=== PATIENT | female | born 2000 | race Caucasian/White ===

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

== ENCOUNTER 2024-02-24 07:14 | Day surgery (SDC) | payer BC, SELFPAY ==
--- NOTE | 2024-02-15 12:43 | HP.PCM_ITS ---
History and Physical Date of Admission: 02/24/24 HPI: The patient is a 23 year old female presenting for pre-operative visit. She is scheduled for Hysteroscopy D&C, possible polypectomy for aub and endometrial polyp on 02/24/24. Procedure discussed along with risks, benefits and complications. Other alternatives discussed for management. Consent form signed? Yes. PAST MEDICAL HISTORY PAST MEDICAL HISTORY Diagnosis Date ? Acid reflux ? Depression ? Dislocation of the knee cap bilat- most recent left 02/2024 ? History of elbow surgery 05/03/2011 ? Mood disorder (HCC) ? Patellar instability PAST SURGICAL HISTORY PAST SURGICAL HISTORY Procedure Laterality Date ? ELBOW SURGERY HX 7th grade right elbow ? [facility] CHOLECYSTECTOMY 2021 ? NASAL ENDOS,DIAG,UNI/ BILATERAL ? TONSILLECTOMY & ADENOIDECTOMY <AGE 11 CURRENT MEDICATIONS Current Outpatient Medications Medication Sig Dispense Refill ? AIMOVIG AUTOINJECTOR 140 mg/mL auto-injector ? citalopram hydrobromide (CELEXA) 10 mg tablet Take 10 mg by mouth every morning. ? clonazePAM (KLONOPIN) 0.5 mg tablet TAKE 1 TAB BY MOUTH ONCE A DAY NEEDED FOR PANIC ATTACKS ? norethindrone (AYGESTIN) 5 mg tablet Take 1 tablet TID until bleeding stops, the BID x 3 days, the daily x 3 days. 35 tablet 0 ? lamoTRIgine (LAMICTAL) 100 mg tablet Take 2 tablets by mouth once daily. 90 tablet 0 ? esomeprazole magnesium (NEXIUM ORAL) Take 20 mg by mouth once daily. No current facility-administered medications for this visit. ALLERGIES: Adhesive Tape-Silicones, Benadryl [Diphenhydramine], Lactose, and Mobic [Meloxicam] PERSONAL HISTORY: SOCIAL HISTORY Social History Tobacco Use ? Smoking status: Never ? Smokeless tobacco: Never Vaping Use ? Vaping status: Never Used Substance Use Topics ? Alcohol use: No ? Drug use: No FAMILY HISTORY: FAMILY HISTORY FAMILY HISTORY Problem Relation Age of Onset ? Hypertension Mother ? Colon Cancer Father ? Hypertension Maternal Grandmother ? Heart Maternal Grandmother ? Hypertension Maternal Grandfather ? Heart Maternal Grandfather REVIEW OF SYMPTOMS: GENERAL: denies fevers or chills ENDOCRINOLOGY: has not been on steroids Cardiology : denies palpitations or chest pain Respiratory: denies SOB or cough Hematology: denies history of prolonged bleeding or easy bruising or VTE Allergy: Denies history of personal or family history of allergy to anesthesia PHYSICAL EXAMINATION: VITALS: Blood pressure 124/86, pulse 81, resp. rate 16, height 167.6 cm (5' 6 ), weight 122.5 kg (270 lb), last menstrual period 12/27/2023, SpO2 99%. GENERAL: The patient is well nourished, well hydrated in no acute distress. , The patient is oriented to time, place, and person. NECK: Supple. No lynphadenopathy, normal thyroid, no thyromegaly. LUNGS: Clear to auscultation bilaterally. no wheezes, rhonchi or rales HEART: Regular rate and rhythm, Normal heart sounds, and No murmurs or gallops Reviewed pelvic US nad labs IMPRESSION: iron def anemia of chronic blood loss, AUB, endometrial polyp, bicornuate uterus PLAN: The risks/benefits/alternatives and personal involved for the planned hysteroscopy D&C w/ possible polyp resection were reviewed with the patient. Her questions were answered to her satisfaction and she desires to proceed. Co nsent was signed. I reviewed with her postop instructions and expectations. I have reviewed and updated past medical and surgical history, medications and allergies Assessment & Plan Assessment/Plan (1) Abnormal uterine bleeding (AUB): (2) Endometrial polyp: (3) Iron deficiency anemia due to chronic blood loss: (4) Bicornate uterus:
[2024-02-24] VITALS (11 sets, daily range): BP systolic 118–147; BP diastolic 77–108; PULSE 69–99; RESP 14–20; TEMP 36.1–36.6; O2SAT 92–100; BMI 43.4
--- NOTE | 2024-02-24 07:36 | PRE.ANES_ITS ---
ASA Classification* ASA Classification ASA Classification: 2 Assessment & Plan Anesthesia* Anesthesia Assessment Anesthesia Assessment: Discussed sedation and/or anesthesia options, risks, benefits, and alternatives with patient/parents/legal guardian/POA. Questions invited. The patient/parents/legal guardian/POA seems to understand and agrees to proceed with anesthesia plan. Reviewed the physical assessment, medical history, allergy history and patient home medications list prior to surgery/procedure/anesthetic and documented any changes. Performed airway and anesthesia risk assessments. 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 When Was Last Pacemaker Check QUESTION #4 FULL TEXT: You/Your Family Experience fever (hyperthermia) with Anesthesia Last Oral Intake Last Oral intake: Last Oral Intake NPO since Meds taken in AM with sips of water? Meds patient instructed to take am of surgery PONV PONV - telecommunications switch technician: PONV - telecommunications switch technician Female Yes 02/17/24 11:14 HX of Motion Sickness Yes 02/17/24 11:14 HX of N/V After Surgery No 02/17/24 11:14 Non-Smoker Yes 02/17/24 11:14 Duration of Surgery greater No 02/17/24 11:14 than 60 minutes Number of Risk Factors 3 02/17/24 11:14 PONV Score Moderate Risk 02/17/24 11:14 Respiratory Assessment Respiratory Assessment - telecommunications switch technician: Respiratory Tract Infection Hx - telecommunications switch technician Hx Respiratory Tract Infection No 02/17/24 11:14 STOP Sleep Apnea STOP Sleep Apnea - telecommunications switch technician: STOP Sleep Apnea - telecommunications switch technician Hx Hypertension No 02/17/24 11:14 Hx Sleep Apnea No 02/17/24 11:14 CPAP BIPAP Do you snore loudly (louder No 02/17/24 11:14 than talking or can be heard Do you often feel tired/ Yes 02/17/24 11:14 fatigued/ sleepy during daytime? Has anyone observed you stop No 02/17/24 11:14 breathing during sleep? STOP Results Negative 02/17/24 11:14 QUESTION #5 FULL TEXT : Do you snore loudly (louder than talking or can be heard through closed doors)? 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 Specify any problems Hx of Preganancy in last 3 No 02/17/24 11:14 Months Nurse Filling Out Transfusion DSCHRIBER 02/17/24 11:14 & Questions: Date: 02/17/24 02/17/24 11:14 Time: 11:16 02/17/24 11:14 Patient unable to answer at this time (ie. confused, unrespo /Reproduction History /Reproductive History - telecommunications switch technician: /Reproductive Hx- telecommunications switch technician Hx Now No 02/17/24 11:14 Gestational Age (in weeks): EDC: Hx Hx Para Hx Section SAB No 02/17/24 11:14 Active Medications Active Medications: Current Medications Generic Name Dose Route Start Last Admin Trade Name Freq PRN Reason Stop Dose Admin Acetaminophen 1,000 mg 02/24/24 08:30 Acetaminophen 500 Mg Tablet PO 02/24/24 08:31 PREOP [facility] Medical History Wears contact lenses Anxiety Low iron Easy bruising Migraine headache Gastric reflux Non-smoker History of edema Home Medications ?Medication ?Instructions ?Recorded ?Last Taken ?Type citalopram 10 mg tablet (Celexa) 10 mg PO DAILY 02/17/24 Unknown History esomeprazole magnesium 40 mg 40 mg PO DAILY 02/17/24 Unknown History capsule,delayed release (Nexium) lamotrigine 100 mg tablet 200 mg PO QHS 02/17/24 Unknown History Allergy/AdvReac Type Severity Reaction Status Date / Time meloxicam (From [employer]) Allergy Intermediate Rash Verified 02/17/24 11:14 Surgical History Hx laparoscopic cholecystectomy Hx of elbow surgery Hx of nasal septoplasty Hx of tonsillectomy Social History Smoking Status: Never smoker Review of Systems (Anesthesia) ROS Narrative System reviewed and no additional complaints, except as documented.
--- OUTSIDE RECORDS SUMMARY | 2024-02-24 07:37 | XMS RPT_ITS | CCD ---
Author Organization [facility] Care Team Providers Care Photographer Portrait Name Role Phone ISAAC IGLESIA F Primary Care Unavailable ROSALBA MITTAL Attending Unavailable IGNACIO, CASSIDY M Referring Unavailable IGNACIO, CASSIDY M Primary Care Unavailable IGNACIO, CASSIDY M Referring Unavailable IGNACIO, CASSIDY M Primary Care Unavailable IGNACIO, CASSIDY M Referring Unavailable IGNACIO, CASSIDY M Primary Care Unavailable IGNACIO, CASSIDY M Referring Unavailable IGNACIO, CASSIDY M Primary Care Unavailable IGNACIO, CASSIDY M Referring Unavailable IGNACIO, CASSIDY M Primary Care Unavailable Calluma Iglesia F Primary Care Provider Petrilla DO, Iglesia F Primary Care Provider Petrilla DO, Iglesia F Primary Care Provider Petrirolya, Iglesia F Primary Care Provider Petrilla, Iglesia F Primary Care Provider Petrilla, Iglesia F Primary Care Provider Petrilla, Iglesia F Primary Care Provider Petrilla DO, Iglesia F Primary Care Provider Petrilla DO, Iglesia F Primary Care Provider Petrirolya DO, Iglesia F Primary Care Provider Bay Blanton MD Unavailable CALLUMA, IGLESIA F Primary Care Unavailable DEVON OMALLEY~[phone], DEVON Andrade Admittin g Unavailable DEVON OMALLEY~[id number], DEVON Andrade Attendin g Unavailable CALLUMA, IGLESIA F Primary Care Unavailable DEVON OMALLEY~[id number], DEVON Andrade Admittin g Unavailable DEVON OMALLEY~[id number], DEVON Andrade Attendin g Unavailable PETRILLA, IGLESIA F Referring Unavailable PETRILLA, [facility] Primary Care Unavailable PETRILLA, IGLESIA F Referring Unavailable PETRILLA, [facility] Primary Care Unavailable Petrilla DO, [facility] [place], [place] Primary Care Provider [phone] Bay Blanton MD Unavailable CALLUMA, IGLESIA Primary Care Unavailable PROVIDER, UNKNOWN Referring Unavailable PETRILLA, [facility] Primary Care Unavailable KVNG STOCKTON Attending Unavailable Petrilla DO, [facility] Primary Care Provide r ISABELLE BRICENO Attending Unavailable BRICENO, ISABELLE Referring Unavailable PETRILLA, R[place] Primary Care Unavailable BRICENO, ISABELLE Attending Unavailable PETRILLA, [place] Primary Care Unavailable PETRILLA, IGLESIA Attending Unavailable PETRILLA, [place] Primary Care Unavailable PETRILLA, [place] Primary Care Unavailable KAITY, ISABELLE Referring Unavailable BRICENO, ISABELLE Attending Unavailable BRICENO, ISABELLE Attending Unavailable BRICENO, ISABELLE Referring Unavailable PETRILLA, [place] Primary Care Unavailable KATRIN DIOP Admitting Unavailable KODAKANDLA, NARSIMHA Consulting Unavailable GSCHENCHO ESPINOSA Attending Unavailable PETRILLA, [place] Primary Care Unavailable PETRILLA, [place] Primary Care Unavailable NEPTALI SMITH Attending Unavailable PETRILLA, [place] Primary Care Unavailable BRICENO, ISABELLE Attending Unavailable NORA, RADHA Attending [facility] Primary Care Unavail able NAN FONSECA Attending Unavailable PETRIA, [facility] Primary Care Unavail able NORA, RADHA Referring Unavailable PETRILLA, [facility] Primary Care Unavail able NORA, RADHA Attending Unavailable NORA, RADHA Referring Unavailable PETRILLA, [facility] Primary Care Unavail able NORA, RADHA Referring Unavailable PETRILLA, [facility] Primary Care Unavail able Allergies Allergy Classification Reported Allergen(s) Allergy Type Date of Onset Reaction(s) Facility (20 sources) Lactose; Translations: [LACTOSE] Drug Allergy 5 Diarrhea [facility] (15 sources) Adhesive Tape Drug Intolerance 2 [facility] (15 sources) Lactose (non-medical use) Allergy to substance 5 Diarrhea [facility] (9 sources) Milk-Related Compounds Drug Intolerance 2 [facility] (9 sources) meloxicam; Translations: [MELOXICAM] Drug Allergy 4 Rash [facility] (1 source) Lactose Drug Allergy [facility] (1 source) meloxicam Drug Allergy [facility] (11 sources) diphenhydrAMINE ; Translations: [DIPHENHYDRAMIN E] Drug Allergy 4 Other: See Comments [facility] Other [facility] (8 sources) meloxicam Drug Allergy 4 Anaphylaxis [facility] (1 source) Adhesive Tape-Silicones Drug Intolerance 2 Hives [facility] Medications Current Medications Medication Drug Class(es) Dates Sig (Normalized) Sig (Original) citalopram 10 mg oral tablet (4 sources) Serotonin Reuptake Inhibitor Start: 12-16-2023 take 1 tablet by mouth once daily in the morning citalopram hydrobromide (CELEXA) 10 mg tablet Take 10 mg by mouth every morning. 12/16/2023 Active Start: 04-27-2019 End: 11-13-2019 take 1 tablet by mouth once daily in the evening citalopram (CELEXA) 10 MG tablet Take 1 tablet by mouth every evening 30 tablet 1 04/27/2019 11/13/2019 Discontinued clonazePAM 0.5 mg oral tablet (9 sources) Benzodiazepine Start: 07-02-2023 End: 08-12-2024 take 1 tablet by mouth twice daily as needed for anxiety clonazePAM (KlonoPIN) 0.5 MG tablet Indications: Anxiety Take 1 tablet (0.5 mg) by mouth 2 times daily as needed for anxiety. 60 tablet 07/02/2023 08/12/2024 Active take 1 tablet by brittanie th once daily as needed clonazePAM (KLONOPIN) 0.5 mg tablet TAKE 1 TAB BY MOUTH ONCE A DAY NEEDED FOR PANIC ATTACKS Active drospirenone, contraceptive, (SLYND) 4 mg (28) tabet (1 source) Start: 02-15-2024 take 1 tablet by mouth once daily drospirenone, contraceptive, (SLYND) 4 mg (28) tabet Take 1 tablet by mouth once daily. 28 tablet 12 02/15/2024 Active 1 ml erenumab-aooe 140 mg/ml auto-injector (3 sources) Start: 01-04-2024 AIMOVIG AUTOINJECTOR 140 mg/mL auto-injector 01/04/2024 Active esomeprazole 40 mg delayed release oral capsule (20 sources) Proton Pump Inhibitor Start: 09-25-2022 take 1 capsule by mouth once daily esomeprazole (NexIUM) [address] capsule Indications: Gastroesophageal Reflux Disease Take 40 mg by mouth daily. 09/25/2022 Active take 20 mg by mouth once daily e someprazole magnesium (NEXIUM ORAL) Take 20 mg by mouth once daily. Active Comment on above: Take 20 mg by mouth once daily. Ethinyl Estradiol / Levonorgestrel (12 sources) Progestin, Estrogen, Progestin-containing Intrauterine Device Start: 10-17-19 End: 12-02-19 take 1 tablet by mouth once daily levonorgestrel-ethin yl estradiol (LEVORA-28) 0.15-0.03 mg per tab Indications: Dysmenorrhea , Menorrhagia with regular cycle Take 1 tablet by mouth once daily. 3 Package 4 10/17/2019 12/01/2022 Discontinued Start: 10-17-2019 take 1 tablet by brittanie th once daily levonorgestrel-ethinyl estradiol (LEVORA-28) 0.15-0.03 mg per tab Indications: Dysmenorrhea , Menorrhagia with regular cycle Take 1 tablet by mouth once daily. 3 Package 4 10/17/2019 Active Comment on above: Take 1 tablet by brittanie th once daily. lamoTRIgine 100 mg oral tablet (20 sources) Mood Stabilizer, Anti-epileptic Agent Start: 10-08-2023 End: 01-06-2024 take 2 tablets by mouth once daily lamoTRIgine (LAMICTAL) 100 mg tablet Take 2 tablets by mouth once daily. 90 tablet 10/08/2023 Active Start: 04-28-2022 End: 10-08-2023 take 1 tablet by mouth once daily lamoTRIgine (LAMICTAL) 25 mg tablet TAKE 1 TABLET BY MOUTH EVERY DAY IN ADDITION TO TH 100MG 90 tablet 0 04/28/2022 10/08/2023 Discontinued Start: 10-15-2021 End: 10-08-2023 lamoTRIgine (LaMICtal) 100 M G tablet Indications: Depressive Phase Bipolar Mood Disorder One q am 30 tablet 3 05/11/2023 Active Start: 04-28-2021 End: 03-04-2022 take 1 tablet by mouth once daily lamoTRIgine (LAMICTAL) 25 mg tablet Take 1 tablet by mouth once daily. In addition to 100mg 90 tablet 0 12/04/2021 Active Start: 04-28-2021 End: 07-29-2021 take 1 tablet by mouth once daily lamoTRIgine (LAMICTAL) 100 mg tablet Take 1 tablet by mouth once daily. 30 tablet 2 07/29/2021 Active take 1 tablet by brittanie th once daily lamoTRIgine (LAMICTAL) 100 MG tablet Take 100 mg by mouth daily 0 Active Comment on above: take 1 tablet by brittanie th once daily Take 1 tablet by brittanie th once daily. In addition to 100mg Take 1 tablet by brittanie th once daily. TAKE 1 TABLET BY BRITTANIE TH EVERY DAY TAKE 1 TABLET BY BRITTANIE TH EVERY DAY IN ADDITION TO TH 100MG pantoprazole 40 mg delayed release oral tablet (15 sources) Proton Pump Inhibitor Start: 03-14-2018 End: 12-01-[address] (PROTONIX) 40 mg tablet Take by mouth once daily. 0 03/14/2018 12/01/2022 Discontinued End: 04-24-2019 take 1 tablet by mouth once daily pantoprazole (PROTONIX) 20 MG tablet Take 20 mg by mouth daily 0 Active Comment on above: Take by mouth once d aily. sertraline 25 mg oral tablet (20 sources) Serotonin Reuptake Inhibitor Start: 11-24-2022 End: 07-10-2023 take 1.5 tablets by mouth once daily sertraline (Zoloft) 25 MG tablet Indications: Major Depressive Disorder Take 1.5 tablets (37.5 mg) by mouth daily. 45 tablet 3 05/11/2023 Active Start: 04-28-2022 End: 01-06-2024 take 5.5 tablets by mouth once daily sertraline (ZOLOFT) 25 mg tablet TAKE 1&1/2 TABLETS BY MOUTH DAILY 90 tablet 04/28/2022 01/06/2024 Discontinued Start: 04-23-2022 End: 04-28-2022 take 1.5 tablets by mouth once daily sertraline (ZOLOFT) 25 mg tablet 1.5 tabs po daily 135 tablet 0 04/23/2022 04/28/2022 Discontinued Start: 01-26-2022 End: 04-23-2022 sertraline (ZOLOFT) 25 mg ta blet TAKE 1 & 1/2 TABLET BY MOUTH EVERY DAY 135 tablet 0 01/26/2022 04/23/2022 Discontinued Start: 10-15-2021 End: 10-15-2021 sertraline (ZOLOFT) 25 mg ta blet TAKE ONE AND ONE-HALF TABLETS BY MOUTH EVERY DAY 45 tablet 2 10/15/2021 10/15/2021 Discontinued Start: 04-28-2021 End: 03-04-2022 take 1.5 tablets by mouth once daily sertraline (ZOLOFT) 25 mg tablet Take 1.5 tablets by mouth once daily. 135 tablet 0 12/04/2021 03/04/2022 Active take 1 tablet by brittanie th once daily sertraline (ZOLOFT) 25 MG tablet Take 25 mg by mouth daily 0 Active Comment on above: Take 1.5 tablets by mouth once daily. TAKE ONE AND ONE-DAVID F TABLETS BY MOUTH EVERY DAY TAKE 1 & 1/2 TABLET BY MOUTH EVERY DAY 1.5 tabs po daily TAKE 1&1/2 TABLETS B Y MOUTH DAILY 24 hr venlafaxine 37.5 mg extended release oral capsule (1 source) Serotonin and Norepinephrine Reuptake Inhibitor Start: 04-17-20 take 1 capsule by mouth once daily venlafaxine (EFFEXOR XR) 37.5 MG extended release capsule Take 1 capsule by mouth daily 30 capsule 3 04/17/2019 Active Completed/Discontinued Medications Medication Drug Class(es) Dates Sig (Normalized) Sig (Original) ARIPiprazole 2 mg oral tablet (1 source) Atypical Antipsychotic Start: 07-03-2023 End: 08-13-2023 take 1 tablet by mouth once daily ARIPiprazole (Abilify) 2 MG tablet Indications: Major Depressive Disorder Take 1 tablet (2 mg) by mouth daily. 30 tablet 0 07/03/2023 08/13/2023 Discontinued (Ineffective) azithromycin 250 mg oral tablet (2 sources) Macrolide Antimicrobial Start: 04-06-2023 End: 05-11-2023 azithromycin (Zithromax Z-Torsten) 250 MG tablet Take as directed 6 tablet 0 04/06/2023 05/11/2023 Discontinued (Therapy completed) cholestyramine resin 4000 mg powder for oral suspension (9 sources) Bile Acid Sequestrant Start: 11-24-2022 cholestyramine (Questran) 4 g packet One q am for one week, then increase to one packet BID 60 packet 2 11/24/2022 Suspended diclofenac sodium 0.01 mg/mg topical gel (5 sources) Nonsteroidal Anti-inflammatory Drug Start: 05-25-2023 Diclofenac Sodium (Voltaren) 1 % gel Indications: Right arm pain Apply 2 g topically 2 times daily. 150 g 1 05/25/2023 Suspended LORazepam 1 mg oral tablet (1 source) Benzodiazepine Start: 04-24-2019 End: 04-24-2019 LORazepam (ATIVAN) tablet 2 mg meloxicam 7.5 mg oral tablet (5 sources) Nonsteroidal Anti-inflammatory Drug Start: 05-25-2023 End: 08-23-2023 take 1 tablet by mouth once daily meloxicam (Mobic) 7.5 MG tablet Indications: Right arm pain Take 1 tablet (7.5 mg) by mouth daily. 30 tablet 2 05/25/2023 06/30/2023 Discontinued (Med list cleanup) norethindrone acetate 5 mg oral tablet (3 sources) Start: 01-06-2024 End: 02-15-2024 norethindrone (AYGESTIN) 5 mg tablet Indications: Irregular menstrual cycle Take 1 tablet TID until bleeding stops, the BID x 3 days, the daily x 3 days. 35 tablet 01/06/2024 02/15/2024 Discontinued QUEtiapine 25 mg oral tablet (1 source) Atypical Antipsychotic Start: 07-02-2023 End: 08-13-2023 take 0.5 tablet by mouth once daily QUEtiapine (SEROquel) 25 MG tablet Indications: Generalized Anxiety Disorder Take 0.5 tablets (12.5 mg) by mouth Nightly. 15 tablet 0 07/02/2023 08/13/2023 Discontinued (Ineffective) Problems Active Problems Problem Classification Problem Date Documented Date Episodic/Chronic Abdominal pain (1 source) Pain in female pelvis; Translations: [Pelvic and perineal pain] 01-01-2023 Episodic Anxiety disorders (20 sources) Mixed anxiety and depressive disorder; Translations: [Anxiety disorder, unspecified] Onset: 08-04-2018 Resolved: 10-24-2020 09-16-2018 Chronic Complications of surgical procedures or medical care (2 sources) Other reaction to spinal and lumbar puncture; Translations: [OTH REACTION SPINAL LUMBAR PUNCTURE] Onset: 09-07-2023 Episodic Conditions associated with dizziness or vertigo (1 source) Dizziness and giddiness; Translations: [Dizziness and giddiness] Onset: 07-29-2018 Episodic Deficiency and other anemia (2 sources) Iron deficiency anemia due to blood loss; Translations: [Iron deficiency anemia secondary to blood loss (chronic)] Onset: 02-15-2024 02-15-2024 Chronic Delirium dementia and amnestic and other cognitive disorders (1 source) Postconcussional syndrome; Translations: [Postconcussional syndrome] Onset: 07-29-2018 Chronic Genitourinary congenital anomalies (2 sources) Bicornuate uterus; Translations: [Bicornate uterus] Onset: 02-15-2024 02-15-2024 Chronic Headache; including migraine (1 source) Migraine with aura, intractable, with status migrainosus; Translations: [Migraine with aura, intractable, with status migrainosus] Onset: 09-16-2023 Chronic Headache; including migraine (1 source) Headache; including migraine; Translations: [Acute nonintractable headache, unspecified headache type] Onset: 09-04-2023 Immunizations and screening for infectious disease (1 source) Patient encounter status; Translations: [Encounter for screening for infections with a predominantly sexual mode of transmission] 12-01-2022 Episodic Intracranial injury (1 source) Concussion without loss of consciousness, initial encounter; Translations: [Concussion without loss of consciousness, initial encounter] Onset: 07-26-2018 Episodic Menstrual disorders (20 sources) Dysmenorrhea; Translations: [Dysmenorrhea, unspecified] Onset: 10-10-2014 09-16-2018 Chronic Miscellaneous mental health disorders (20 sources) Dissociative trance; 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] Onset: 07-19-2019 07-19-2019 Chronic Mood disorders (20 sources) Mild major depression, single episode; Translations: [Recurrent depression] Onset: 05-03-2018 10-24-2020 Chronic Nausea and vomiting (1 source) Nausea; Translations: [NAUSEA] Onset: 09-07-2023 Episodic Nonspecific chest pain (3 sources) Other chest pain; Translations: [Other chest pain] Onset: 07-29-2018 Episodic Other connective tissue disease (3 sources) Pain in right arm; Translations: [Pain in right arm] 05-25-2023 Episodic Other endocrine disorders (19 sources) Pituitary gland enlarged; Translations: [Other disorders of pituitary gland] Onset: 08-22-2018 09-16-2018 Chronic Other eye disorders (2 sources) Unspecified papilledema; Translations: [UNSPECIFIED PAPILLEDEMA] Onset: 09-06-2023 Chronic Other female genital disorders (1 source) Abnormal uterine bleeding; Translations: [Abnormal uterine and vaginal bleeding, unspecified] 02-15-2024 Chronic Other female genital disorders (1 source) Polyp of corpus uteri; Translations: [Polyp of corpus uteri] 02-15-2024 Episodic Other lower respiratory disease (1 source) Shortness of breath; Translations: [Shortness of breath] Onset: 07-29-2018 Episodic Other screening for suspected conditions (not mental disorders or infectious disease) (1 source) Cancer cervix screening status; Translations: [Encounter for screening for malignant neoplasm of cervix] 01-01-2023 Episodic Other upper respiratory infections (19 sources) Chronic sinusitis; Translations: [Chronic sinusitis, unspecified] Onset: 09-09-2018 Resolved: 04-06-2023 09-16-2018 Chronic Spondylosis; intervertebral disc disorders; other back problems (1 source) Spondylosis without myelopathy or radiculopathy, cervical region; Translations: [Spondylosis without myelopathy or radiculopathy, cervical region] Onset: 09-16-2023 Chronic Past or Other Problems Problem Classification Problem Date Documented Da te Episodic/Chronic Calculus of urinary tract (20 sources) History of calculus of kidney; Translations: [Personal history of urinary calculi] Onset: 12-08-2015 12-08-2015 Episodic Cardiac dysrhythmias (5 sources) Other specified cardiac arrhythmias; Translations: [Nicolas rhythm disorder] Onset: 08-04-2018 Resolved: 10-24-2020 09-16-2018 Chronic Cardiac dysrhythmias (4 sources) Palpitations; Translations: [Palpitations] Onset: 08-12-2018 Resolved: 10-24-2020 09-16-2018 Episodic Mood disorders (7 sources) Mood disorders Onset: 06-30-2023 06-30-2023 Other connective tissue disease (2 sources) Pain in right arm; Translations: [Pain in right arm] Onset: 05-25-2023 Episodic Other nutritional; endocrine; and metabolic disorders (19 sources) Obese class II; Translations: [Obesity, unspecified] Onset: 04-04-2019 Resolved: 12-01-2022 04-04-2019 Chronic Other upper respiratory infections (17 sources) Acute frontal sinusitis; Translations: [Acute frontal sinusitis, unspecified] Onset: 04-06-2023 04-06-2023 Episodic Poisoning by other medications and drugs (1 source) Adverse reaction to drug Episodic Residual codes; unclassified (2 sources) Acquired absence of other specified parts of digestive tract; Translations: [Acquired absence of other specified parts of digestive tract] Onset: 11-24-2022 Episodic Spondylosis; intervertebral disc disorders; other back problems (6 sources) Neck pain; Translations: [Cervicalgia] Onset: 08-13-2023 08-13-2023 Episodic Suicide and intentional self-inflicted injury (2 sources) Suicidal ideations; Translations: [Suicidal ideations] Onset: 06-30-2023 Episodic Results Test Name Value Interpretation Reference Range Facility [facility] 02-15-2024 CNOV Office Visit (OBGYWM ) -- JAZMIN HOWARD ([id number]) 89 F Date Time Provider Department 02/15/24 9:20 AM NAN FONSECA [facility] During your visit today, we recorded the following information about you: Pulse Respiration Blood pressure Weight 81/minute 16/minute 124/86 122.5 kg Height 1.676 m Nan Fonseca MD 02/15/2024 12:43 PM Signed Pre-Op History and Physical HPI: The patient is a 23 year old female presenting for pre-operative visit. She is scheduled for Hysteroscopy DANDC, possible polypectomy for aub and endometrial polyp on 02/24/24. Procedure discussed along with risks, benefits and complications. Other alternatives discussed for management. Consent form signed? Yes. PAST MEDICAL HISTORY Diagnosis Date Acid reflux Depression Dislocation of the knee cap bilat- most recent left 02/2024 History of elbow surgery 05/03/2011 Mood disorder (HCC) Patellar instability PAST SURGICAL HISTORY Procedure Laterality Date ELBOW SURGERY HX 7th grade right elbow [employer] CHOLECYSTECTOMY 2021 NASAL ENDOS,DIAG,UNI/ BILATERAL TONSILLECTOMY AND ADENOIDECTOMY Current Outpatient Medications Medication Sig Dispense Refill AIMOVIG AUTOINJECTOR 140 mg/mL auto-injector citalopram hydrobromide (CELEXA) 10 mg tablet Take 10 mg by mouth every morning. clonazePAM (KLONOPIN) 0.5 mg tablet TAKE 1 TAB BY MOUTH ONCE A DAY NEEDED FOR PANIC ATTACKS norethindrone (AYGESTIN) 5 mg tablet Take 1 tablet TID until bleeding stops, the BID x 3 days, the daily x 3 days. 35 tablet 0 lamoTRIgine (LAMICTAL) 100 mg tablet Take 2 tablets by mouth once daily. 90 tablet 0 esomeprazole magnesium (NEXIUM ORAL) Take 20 mg by mouth once daily. No current facility-administered medications for this visit. ALLERGIES: Adhesive Tape-Silicones, Benadryl [Diphenhydramine], Lactose, and Mobic [Meloxicam] PERSONAL HISTORY: Social History Tobacco Use Smoking status: Never Smokeless tobacco: Never Vaping Use Vaping status: Never Used Substance Use Topics Alcohol use: No Drug use: No FAMILY HISTORY: FAMILY HISTORY Problem Relation Age of Onset Hypertension Mother Colon Cancer Father Hypertension Maternal Grandmother Heart Maternal Grandmother Hypertension Maternal Grandfather Heart Maternal Grandfather REVIEW OF SYMPTOMS: GENERAL: denies fevers or chills ENDOCRINOLOGY: has not been on steroids Cardiology : denies palpitations or chest pain Respiratory: denies SOB or cough Hematology: denies history of prolonged bleeding or easy bruising or VTE Allergy: Denies history of personal or family history of allergy to anesthesia PHYSICAL EXAMINATION: VITALS: Blood pressure 124/86, pulse 81, resp. rate 16, height 167.6 cm (5' 6 ), weight 122.5 kg (270 lb), last menstrual period 12/27/2023, SpO2 99%. GENERAL: The patient is well nourished, well hydrated in no acute distress. , The patient is oriented to time, place, and person. NECK: Supple. No lynphadenopathy, normal thyroid, no thyromegaly. LUNGS: Clear to auscultation bilaterally. no wheezes, rhonchi or rales HEART: Regular rate and rhythm, Normal heart sounds, and No murmurs or gallops Reviewed pelvic US nad labs IMPRESSION: iron def anemia of chronic blood loss, AUB, endometrial polyp, bicornuate uterus PLAN: The risks/benefits/alternative s and personal involved for the planned hysteroscopy DANDC w/ possible polyp resection were reviewed with the patient. Her questions were answered to her satisfaction and she desires to proceed. Consent was signed. I reviewed with her postop instructions and expectations. I have reviewed and updated past medical and surgical history, medications and allergies Nan Fonseca M.D. Nan Fonseca MD 02/15/2024 12:43 PM Signed Jazminzacarias Howard is a 23 year old female who presents for problem visit for AUZB. HPI: 23 YOF w/ longstanding h/o AUB, dysmenorrhea. Not sexually active currently. Was on pills before. Now has migraines w/ aura. Tried IUD and it expelled same day. Was really painful. Recent US shows arcuate vs bicornuate uterus OB History T0 L0 SAB0 IAB0 Ectopic0 Multiple0 Live Births0 [employer] Att[employer] History LMP: 12/27/2023, Having periods Age at Menarche: Age at First : Age at Menopause: [employer] Att[employer] History Comments: Sexual Activity: Not Currently; Male Contraception: No contraception data on record PAST MEDICAL HISTORY Diagnosis Date Acid reflux Depression Dislocation of the knee cap bilat- most recent left 02/2024 History of elbow surgery 05/03/2011 Mood disorder (HCC) Patellar instability PAST SURGICAL HISTORY Procedure Laterality Date ELBOW SURGERY HX 7th grade right elbow [facility] CHOLECYSTECTOMY 2021 NASAL ENDOS,DIAG,UNI/ BILATERAL TONSILLECTOMY AND ADENOIDECTOMY FAMILY HISTORY Problem Relation Age of Onset Hypertension M (more content not included)... Normal [facility] HISTORY PHYSICALon 4 HISTORY PHYSICAL HNO ID: [id number] Author: NAN FONSECA MD Service: ? Author Type: Physician Type: H&P Filed: 02/15/2024 12:43 Note Text: Pre-Op History and Physical HPI: The patient is a 23 year old female presenting for pre-operative visit. She is scheduled for Hysteroscopy DANDC, possible polypectomy for aub and endometrial polyp on 02/24/24. Procedure discussed along with risks, benefits and complications. Other alternatives discussed for management. Consent form signed? Yes. PAST MEDICAL HISTORY Diagnosis Date Acid reflux Depression Dislocation of the knee cap bilat- most recent left 02/2024 History of elbow surgery 05/03/2011 Mood disorder (HCC) Patellar instability PAST SURGICAL HISTORY Procedure Laterality Date ELBOW SURGERY HX 7th grade right elbow [facility] CHOLECYSTECTOMY 2021 NASAL ENDOS,DIAG,UNI/ BILATERAL TONSILLECTOMY AND ADENOIDECTOMY Current Outpatient Medications Medication Sig Dispense Refill AIMOVIG AUTOINJECTOR 140 mg/mL auto-injector citalopram hydrobromide (CELEXA) 10 mg tablet Take 10 mg by mouth every morning. clonazePAM (KLONOPIN) 0.5 mg tablet TAKE 1 TAB BY MOUTH ONCE A DAY NEEDED FOR PANIC ATTACKS norethindrone (AYGESTIN) 5 mg tablet Take 1 tablet TID until bleeding stops, the BID x 3 days, the daily x 3 days. 35 tablet 0 lamoTRIgine (LAMICTAL) 100 mg tablet Take 2 tablets by mouth once daily. 90 tablet 0 esomeprazole magnesium (NEXIUM ORAL) Take 20 mg by mouth once daily. No current facility-administered medications for this visit. ALLERGIES: Adhesive Tape-Silicones, Benadryl [Diphenhydramine], Lactose, and Mobic [Meloxicam] PERSONAL HISTORY: Social History Tobacco Use Smoking status: Never Smokeless tobacco: Never Vaping Use Vaping status: Never Used Substance Use Topics Alcohol use: No Drug use: No FAMILY HISTORY: FAMILY HISTORY Problem Relation Age of Onset Hypertension Mother Colon Cancer Father Hypertension Maternal Grandmother Heart Maternal Grandmother Hypertension Maternal Grandfather Heart Maternal Grandfather REVIEW OF SYMPTOMS: GENERAL: denies fevers or chills ENDOCRINOLOGY: has not been on steroids Cardiology : denies palpitations or chest pain Respiratory: denies SOB or cough Hematology: denies history of prolonged bleeding or easy bruising or VTE Allergy: Denies history of personal or family history of allergy to anesthesia PHYSICAL EXAMINATION: VITALS: Blood pressure 124/86, pulse 81, resp. rate 16, height 167.6 cm (5' 6 ), weight 122.5 kg (270 lb), last menstrual period 12/27/2023, SpO2 99%. GENERAL: The patient is well nourished, well hydrated in no acute distress. , The patient is oriented to time, place, and person. NECK: Supple. No lynphadenopathy, normal thyroid, no thyromegaly. LUNGS: Clear to auscultation bilaterally. no wheezes, rhonchi or rales HEART: Regular rate and rhythm, Normal heart sounds, and No murmurs or gallops Reviewed pelvic US nad labs IMPRESSION: iron def anemia of chronic blood loss, AUB, endometrial polyp, bicornuate uterus PLAN: The risks/benefits/alternative s and personal involved for the planned hysteroscopy DANDC w/ possible polyp resection were reviewed with the patient. Her questions were answered to her satisfaction and she desires to proceed. Consent was signed. I reviewed with her postop instructions and expectations. I have reviewed and updated past medical and surgical history, medications and allergies Nan Fonseca M.D. [facility] 36on 02-03-2024 36 Just FYI, it looks l korey pt agreeable to be evaluated at [facility] 36 S: Patient spoke wit h [facility] nurse regarding knee injury B: Onset of symptoms/concern 3 weeks A: Pt reports she works at the [employer] and reports on of the kids ran into her at the back and her knee stayed straight and the rest of her body turned and she heard a pop. Reports the knee swelled up, got better some and then and it progressively has gotten worse- Knee swollen into calf, about twice the size of the other knee. Pain with walking 4-5/10, if stays bent or going up stairs hurts bad 6/10 and after being on it at night 8/10. R: [facility] nurse unable to find available appt in office. Referred patient to to be evaluated today. Patient verbalized understanding and agreement. Reason for Disposition A 'snap' or 'pop' was heard at the time of injury Protocols used: Knee [id number] [facility] CNPNon 01-18-2024 CNPN Telephone (OBGYWM) -- HOWARD,JAZMIN Wendy ([id number]) 89 F Date Time Provider Department 01/18/24 RADHA MELENDEZ During your visit today, we recorded the following information about you: Socorro Salamanca RN 01/18/2024 8:54 AM Signed Patient states she was scheduled for Mar 03 for her Hysteroscopy. States that she offered a sooner date. Calling today because she would like the sooner date. Message given to occasional caregiver. FRANCESCO Saucedo Jennifer, RN 01/24/2024 12:44 PM Signed Patient called. She has to be out of town on Mar 04, so longer wants Mar 03. She would like surgery either sooner or later than this date. Message given to occasional caregiver. FRANCESCO Sauceod Jennifer, RN 01/24/2024 4:49 PM Signed Patient called back again. She can not do the 02/23 surgery date. Her employer will not give her time off then. Needs to be after Mar 03. Patient has a Pre Op on 02/13 if this will be within 30 days of surgery. FRANCESCO Saucedo Annalee, LPN 01/27/2024 3:07 PM Signed Patient states that she wants to keep her surgery on 02/24/24 Allergies As of Date: 01/18/2024 Noted Allergy Reaction BENADRYL (DIPHENHYDRAMINE) 09/04/2023 14 - Other: See Comments Comments: anxiety LACTOSE 10/10/2014 6 - Diarrhea MOBIC (MELOXICAM) 09/04/2023 10 - Anaphylaxis Date Reviewed: 01/06/2024 Reviewed by: Milagros Amaya LPN - Fully Assessed Reason for Visit: Preparations For Surgery [898] Prescriptions as of 01/27/2024 - AIMOVIG AUTOINJECTOR 140 mg/mL auto-injector - citalopram hydrobromide (CELEXA) 10 mg tablet Take 10 mg by mouth every morning. - clonazePAM (KLONOPIN) 0.5 mg tablet TAKE 1 TAB BY MOUTH ONCE A DAY NEEDED FOR PANIC ATTACKS - norethindrone (AYGESTIN) 5 mg tablet Take 1 tablet TID until bleeding stops, the BID x 3 days, the daily x 3 days. - lamoTRIgine (LAMICTAL) 100 mg tablet Take 2 tablets by mouth once daily. - esomeprazole magnesium (NEXIUM ORAL) Take 20 mg by mouth once daily. 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] 07/19/2019 Depersonalization-derealiz ation syndrome (HCC) *07/19/2019 Encounter Status:Closed by ALISA CORADO on 01/27/24 Normal [facility] CBC W Auto Differential pane l (Bld)on 01-06-2024 Basophils (Bld) [#/Vol] 0.03 10*3/uL [facility] Basophils/100 WBC (Bld) 0.4 % [facility] Differential cell count method Nom (Bld) Auto [facility] Eosinophils (Bld) [#/Vol] 0.09 10*3/uL [facility] Eosinophils/100 WBC (Bld) 1.3 % [facility] Erythrocyte distribution width (RBC) [Ratio] 14.6 % 11.5 - 15.0 % [facility] Hematocrit (Bld) [Volume fraction] 35.5 % Low 36.0 - 46.0 % [facility] Hemoglobin (Bld) [Mass/Vol] 11.2 g/dL Low 11.5 - 15.5 g/dL [facility] Immature granulocytes (Bld) [#/Vol] [facility] Immature granulocytes/100 WBC (Bld) 0.1 % [facility] Interpretation and review of laboratory results Abnormal [facility] Lymphocytes (Bld) [#/Vol] 2.18 10*3/uL [facility] Lymphocytes/100 WBC (Bld) 30.4 % [facility] MCH (RBC) [Entitic mass] 24.7 pg Low 26.0 - 34.0 pg [facility] MCHC (RBC) [Mass/Vol] 31.5 g/dL 30.5 - 36.0 g/dL [facility] MCV (RBC) [Entitic vol] 78.2 fL Low 80.0 - 100.0 fL [facility] Monocytes (Bld) [#/Vol] 0.47 10*3/uL NINF [facility] Monocytes/100 WBC (Bld) 6.5 % [facility] Neutrophils (Bld) [#/Vol] 4.40 10*3/uL [facility] Neutrophils/100 WBC (Bld) 61.3 % [facility] Nucleated RBC (Bld) [#/Vol] NINF [facility] Nucleated RBC/100 WBC (Bld) [Ratio] 0.0 % /100 WBC [facility] Platelet mean volume (Bld) [Entitic vol] 9.4 fL 9.0 - 12.7 fL [facility] Platelets (Bld) [#/Vol] 287 10*3/uL [facility] RBC (Bld) [#/Vol] 4.54 10*6/uL 3.90 - 5.2 0 m/uL [facility] WBC (Bld) [#/Vol] 7.18 10*3/uL [facility] Basophils (Bld) [#/Vol] 0.03 10*3/uL Normal <0.11 [facility] Comment on above: Order Comment: Speci men Type: BLOOD SPECIMEN Ordering Facility: [facility] Address: [address] [place] [address] Performed By: #### 3 016-3, 2842-3 #### [facility] CLIA [id number] [address] [place], [place] [address] [place] [address] [place] Basophils/100 WBC (Bld) 0.4 % Normal [facility] Comment on above: Order Comment: Speci men Type: BLOOD SPECIMEN Ordering Facility: [facility] Address: [address] [place] [address] Performed By: #### 3 016-3, 284-3 #### [facility] CLIA [id number] [address] [place] [address] [place] Differential cell count method Nom (Bld) Auto Normal [facility] Comment on above: Order Comment: Speci men Type: BLOOD SPECIMEN Ordering Facility: [facility] Address: [address] [place] [address] Performed By: #### 3 016-3, 284-3 #### [facility] CLIA [id number] [address] [place] [address] [place] Eosinophils (Bld) [#/Vol] 0.09 10*3/uL Normal <0.46 [facility] Comment on above: Order Comment: Speci men Type: BLOOD SPECIMEN Ordering Facility: [facility] Address: [address] [place] [address] Performed By: #### 3 016-3, 2841-3 #### [facility] CLIA [id number] [address] [place] [address] [place] Eosinophils/100 WBC (Bld) 1.3 % Normal [facility] Comment on above: Order Comment: Speci men Type: BLOOD SPECIMEN Ordering Facility: [facility] Address: [address] [place] [address] Performed By: #### 3 016-3, 284-3 #### [facility] CLIA [id number] [address] [place] [address] [place] Erythrocyte distribution width (RBC) [Ratio] 14.6 % Normal 11.5-15.0 [facility] Comment on above: Order Comment: Speci men Type: BLOOD SPECIMEN Ordering Facility: [facility] Address: [address] [place] [address] Performed By: #### 3 016-3, 2842-3 #### [facility] CLIA [id number] [address] [place] [address] [place] Hematocrit (Bld) [Volume fraction] 35.5 % Low 36.0-46.0 [facility] Comment on above: Order Comment: Speci men Type: BLOOD SPECIMEN Ordering Facility: [facility] Address: [address] [place] [address] Performed By: #### 3 016-3, 2842-3 #### [facility] CLIA [id number] [address] [place] [address] [place] Hemoglobin (Bld) [Mass/Vol] 11.2 g/dL Low 11.5-15.5 [facility] Comment on above: Order Comment: Speci men Type: BLOOD SPECIMEN Ordering Facility: [facility] Address: [address] [place] [address] Performed By: #### 3 016-3, 2842-3 #### [facility] CLIA [id number] [address] [place] [address] [place] Immature granulocytes (Bld) [#/Vol] 10*3/uL Normal <0.10 [facility] Comment on above: Order Comment: Speci men Type: BLOOD SPECIMEN Ordering Facility: [facility] Address: [address] [place] [address] Performed By: #### 3 016-3, 2842-3 #### [facility] CLIA [id number] [address] [place] [address] [place] Immature granulocytes/100 WBC (Bld) 0.1 % Normal [facility] Comment on above: Order Comment: Speci men Type: BLOOD SPECIMEN Ordering Facility: [facility] Address: [address] [place] [address] Performed By: #### 3 016-3, 2842-3 #### [facility] CLIA [id number] [address] [place] [address] [place] Lymphocytes (Bld) [#/Vol] 2.18 10*3/uL Normal 1.00-4.00 [facility] Comment on above: Order Comment: Speci men Type: BLOOD SPECIMEN Ordering Facility: [facility] Address: [address] [place] [address] Performed By: #### 3 016-3, 2842-3 #### [facility] CLIA [id number] [address] [place] [address] [place] Lymphocytes/100 WBC (Bld) 30.4 % Normal [facility] Comment on above: Order Comment: Speci men Type: BLOOD SPECIMEN Ordering Facility: [facility] Address: [address] [place] [address] Performed By: #### 3 016-3, 2842-3 #### [facility] CLIA [id number] [address] [place] [address] [place] MCH (RBC) [Entitic mass] 24.7 pg Low 26.0-34.0 [facility] Comment on above: Order Comment: Speci men Type: BLOOD SPECIMEN Ordering Facility: [facility] Address: [address] [place] [address] Performed By: #### 3 016-3, 2842-3 #### [facility] CLIA [id number] [address] [place] [address] [place] MCHC (RBC) [Mass/Vol] 31.5 g/dL Normal 30.5-36.0 [facility] Comment on above: Order Comment: Speci men Type: BLOOD SPECIMEN Ordering Facility: [facility] Address: [address] [place] [address] Performed By: #### 3 016-3, 2842-3 #### [facility] CLIA [id number] [address] [place] [address] [place] MCV (RBC) [Entitic vol] 78.2 fL Low 80.0-100.0 [facility] Comment on above: Order Comment: Speci men Type: BLOOD SPECIMEN Ordering Facility: [facility] Address: [address] [place] [address] Performed By: #### 3 016-3, 2842-3 #### [facility] CLIA [id number] [address] [place] [address] [place] Monocytes (Bld) [#/Vol] 0.47 10*3/uL Normal <0.87 [facility] Comment on above: Order Comment: Speci men Type: BLOOD SPECIMEN Ordering Facility: [facility] Address: [address] [place] [address] Performed By: #### 3 016-3, 2842-3 #### [facility] CLIA [id number] [address] [place] [address] [place] Monocytes/100 WBC (Bld) 6.5 % Normal [facility] Comment on above: Order Comment: Speci men Type: BLOOD SPECIMEN Ordering Facility: [facility] Address: [address] [place] [address] Performed By: #### 3 016-3, 2842-3 #### [facility] CLIA [id number] [address] [place] [address] [place] Neutrophils (Bld) [#/Vol] 4.40 10*3/uL Normal 1.45-7.50 [facility] Comment on above: Order Comment: Speci men Type: BLOOD SPECIMEN Ordering Facility: [facility] Address: [address] [place] [address] Performed By: #### 3 016-3, 2842-3 #### [facility] CLIA [id number] [address] [place] [address] [place] Neutrophils/100 WBC (Bld) 61.3 % Normal [facility] Comment on above: Order Comment: Speci men Type: BLOOD SPECIMEN Ordering Facility: [facility] Address: [address] [place] [address] Performed By: #### 3 016-3, 2842-3 #### [facility] CLIA [id number] [address] [place] [address] [place] Nucleated RBC (Bld) [#/Vol] 10*3/uL Normal <0.01 [facility] Comment on above: Order Comment: Speci men Type: BLOOD SPECIMEN Ordering Facility: [facility] Address: [address] [place] [address] Performed By: #### 3 016-3, 284-3 #### [facility] CLIA [id number] [address] [place] [address] [place] Nucleated RBC/100 WBC (Bld) [Ratio] 0.0 /100 WBC Normal [facility] Comment on above: Order Comment: Speci men Type: BLOOD SPECIMEN Ordering Facility: [facility] Address: [address] [place] [address] Performed By: #### 3 016-3, 284-3 #### [facility] CLIA [id number] [address] [place] [address] [place] Platelet mean volume (Bld) [Entitic vol] 9.4 fL Normal 9.0-12.7 [facility] Comment on above: Order Comment: Speci men Type: BLOOD SPECIMEN Ordering Facility: [facility] Address: [address] [place] [address] Performed By: #### 3 016-3, 284-3 #### [facility] CLIA [id number] [address] [place] [address] [place] Platelets (Bld) [#/Vol] 287 10*3/uL Normal 150-400 [facility] Comment on above: Order Comment: Speci men Type: BLOOD SPECIMEN Ordering Facility: [facility] Address: [address] [place] [address] Performed By: #### 3 016-3, 2842-3 #### [facility] CLIA [id number] [address] [place] [address] [place] RBC (Bld) [#/Vol] 4.54 10*6/uL Normal 3.90-5.20 [facility] Comment on above: Order Comment: Speci men Type: BLOOD SPECIMEN Ordering Facility: [facility] Address: [address] [place] [address] Performed By: #### 3 016-3, 2842-3 #### [facility] CLIA [id number] [address] [place] [address] [place] WBC (Bld) [#/Vol] 7.18 10*3/uL Normal 3.70-11.00 [facility] Comment on above: Order Comment: Speci men Type: BLOOD SPECIMEN Ordering Facility: [facility] Address: [address] [place] [address] Performed By: #### 3 016-3, 2842-3 #### [facility] CLIA [id number] [address] [place] [address] [place] CNOVon 01-06-2024 CNOV Office Visit (OBGYWM ) -- JAZMIN HOWARD ([id number]) 89 F Date Time Provider Department 01/06/24 2:30 PM RADHA MELENDEZ OBGYWM During your visit today, we recorded the following information about you: Blood pressure Weight Last Period 128/74 121.2 kg 12/27/23 Radha Melendez APRN.GAUGE AND INSTRUMENT INSPECTOR 01/06/2024 2:36 PM Signed Jazmin Nguyen Ken is a 23 year old female who presents for problem visit irregular bleeding for 3 week(s). HPI: pt was having some bleeding prior to the pelvic ultrasound, but since she has had daily bleeding ranging from normal flow to light. During the ultrasound the patient states that she had severe and actually had to stop before she could continue. After the ultrasound is when the bleeding had picked up. She also had questions regarding a hysteroscopy polypectomy. Her questions were answered to her satisfaction. OB History T0 L0 SAB0 IAB0 Ectopic0 Multiple0 Live Births0 [employer] Complex [employer] History LMP: 07/02/2023 (Approximate), Having periods Age at Menarche: Age at First : Age at Menopause: [employer] History Comments: Sexual Activity: Yes; Male Contraception: No contraception data on record PAST MEDICAL HISTORY No date: Acid reflux No date: Depression 05/03/2011: History of elbow surgery No date: Mood disorder (HCC) PAST SURGICAL HISTORY 7th grade: [employer] HX Comment: right elbow 2021: [facility] CHOLECYSTECTOMY FAMILY HISTORY Problem Relation Age of Onset Hypertension Mother Colon Cancer Father Hypertension Maternal Grandmother Heart Maternal Grandmother Hypertension Maternal Grandfather Heart Maternal Grandfather Social History Tobacco Use Smoking status: Never Smokeless tobacco: Never Vaping Use Vaping status: Never Used Substance Use Topics Alcohol use: No Drug use: No Current Outpatient Medications Medication Sig lamoTRIgine (LAMICTAL) 100 mg tablet Take 2 tablets by mouth once daily. esomeprazole magnesium (NEXIUM ORAL) Take 20 mg by mouth once daily. sertraline (ZOLOFT) 25 mg tablet TAKE 1AND1/2 TABLETS BY MOUTH DAILY No current facility-administered medications for this visit. Allergies As of Date: 01/06/2024 Allergen Noted Reaction BENADRYL [DIPHENHYDRAMINE] 09/04/2023 Other: See Comments LACTOSE 10/10/2014 Diarrhea MOBIC [MELOXICAM] 09/04/2023 Anaphylaxis Fully Assessed 10/08/2023 REVIEW OF SYSTEMS Expanded ROS: N/A Allergies and current medication updated:Yes EXAM: LMP 07/02/2023 GENERAL: pleasant, female in no apparent distress HEENT: Normocephalic, atraumatic, mucus membranes moist, and no lesions CHEST: Normal inspiratory effort NEURO: alert and oriented x3,exam grossly non-focal EXTREMITIES: normal ASSESSMENT/PLAN: 1. Irregular menstrual cycle - ICD9: 626.4, ICD10: N92.6 Will notify patient of test results. - COMPLETE BLOOD COUNT AND DIFFERENTIAL - IRON AND TIBC - NORETHINDRONE ACETATE 5 MG TABLET Radha Melendez APRN.GAUGE AND INSTRUMENT INSPECTOR Medical Decision Making: Problems: Low: Acute, uncomplicated illness or injury Data: Unique test(s) ordered: 2 Risk: Moderate: Drug management Medical Decision Making Level: 3 - Low Referring Provider: RADHA MELENDEZ [[id number]] Allergies As of Date: 01/06/2024 Noted Allergy Reaction BENADRYL (DIPHENHYDRAMINE) 09/04/2023 14 - Other: See Comments Comments: anxiety LACTOSE 10/10/2014 6 - Diarrhea MOBIC (MELOXICAM) 09/04/2023 10 - Anaphylaxis Date Reviewed: 01/06/2024 Reviewed by: Milagros Amaya LPN - Fully Assessed Reason for Visit: Problem Visit [Other] Primary Visit Diagnosis:Irregular menstrual cycle [N92.6] Order(s):COMPLETE BLOOD COUNT AND DIFFERENTIAL [SQCBCDIF] Order #: [id number] FUTURE IRON AND TIBC [SQIRON] Order #: [id number] FUTURE norethindrone (AYGESTIN) 5 mg tabletTake 1 tablet TID until bleeding stops, the BID x 3 days, the daily x 3 days.Disp: 35 tabletRfl: 0 Prescriptions as of 01/06/2024 - AIMOVIG AUTOINJECTOR 140 mg/mL auto-injector - citalopram hydrobromide (CELEXA) 10 mg tablet Take 10 mg by mouth every morning. - clonazePAM (KLONOPIN) 0.5 mg tablet TAKE 1 TAB BY MOUTH ONCE A DAY NEEDED FOR PANIC ATTACKS - norethindrone (AYGESTIN) 5 mg tablet Take 1 tablet TID until bleeding stops, the BID x 3 days, the daily x 3 days. - lamoTRIgine (LAMICTAL) 100 mg tablet Take 2 tablets by mouth once daily. - esomeprazole magnesium (NEXIUM ORAL) Take 20 mg by mouth once daily. 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 Normal [facility] Iron and Iron binding capaci ty panelon 01-06-2024 Iron [Mass/Vol] 40 ug/dL Low 41-186 [facility] Comment on above: Order Comment: Speci men Type: BLOOD SPECIMEN Ordering Facility: [facility] Address: [address] [place] [address] Performed By: #### 5 0190-8 #### [facility] CLIA [id number] [address] [place] [address] [place] Iron binding capacity [Mass/Vol] 427 ug/dL High 232-386 [facility] Comment on above: Order Comment: Speci men Type: BLOOD SPECIMEN Ordering Facility: [facility] Address: [address] [place] [address] Performed By: #### 5 0190-8 #### [facility] CLIA [id number] [address] [place] [address] [place] Iron/TIBC [Molar ratio] 9.4 % Low 15.0-57.0 [facility] Comment on above: Order Comment: Speci men Type: BLOOD SPECIMEN Ordering Facility: [facility] Address: [address] [place] [address] Performed By: #### 5 0190-8 #### [facility] CLIA [id number] [address] [place] [address] [place] Roshni 12-30-2023 AMOS Telephone (OBGYWM) -- HOWARD,JAZMIN Wendy ([id number]) 89 F Date Time Provider Department 12/30/23 RADHA MELENDEZ During your visit today, we recorded the following information about you: Radha Melendez APRN.CNP 12/30/2023 2:52 PM Signed Please let the patient know that her ultrasound shows a possible uterine polyp which is the likely reason for the spotting that she is experiencing. Recommendations would be to have a hysteroscopy polypectomy and further evaluation of the uterus. Surgery sheet filled out and placed in schedulers box. POONAM Hall Jennifer, RN 12/30/2023 3:00 PM Signed Patient notified and agreeable to surgery. No provider preference. Aware occasional caregiver will be in contact with the next available dates for surgery. Socorro Salamanca RN Allergies As of Date: 12/30/2023 Noted Allergy Reaction BENADRYL (DIPHENHYDRAMINE) 09/04/2023 14 - Other: See Comments Comments: anxiety LACTOSE 10/10/2014 6 - Diarrhea MOBIC (MELOXICAM) 09/04/2023 10 - Anaphylaxis Date Reviewed: 10/08/2023 Reviewed by: Isela Drake LPN - Fully Assessed Reason for Visit: Results [95] Prescriptions as of 01/06/2024 - lamoTRIgine (LAMICTAL) 100 mg tablet Take 2 tablets by mouth once daily. - esomeprazole magnesium (NEXIUM ORAL) Take 20 mg by mouth once daily. 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 US FEMALE PELVIS TRANSVAGon 12-26-2023 US FEMALE PELVIS TRANSVAG * * *Final Report* * * DATE OF EXAM: Dec 26 2023 9:48AM U 1060 - US FEMALE PELVIS TRANSVAG / PROCEDURE REASON: N92.6-Irregular menstrual cycle * * * * Physician Interpretation * * * * EXAMINATION: TRANSVAGINAL AND LIMITED TRANSABDOMINAL FEMALE PELVIC ULTRASOUND CLINICAL HISTORY: Abnormal bleeding TECHNIQUE: Sonography of the pelvis was performed by transvaginal and transabdominal (limited) techniques. Images were obtained and stored in a permanent archive. MQ: [id number] COMPARISON: None RESULT: Visualization is suboptimal due to overlying bowel gas and patient build Uterus: LMP 12/02/2023 -Size: 7.7 x 5.2 x 4 cm -Orientation: Anteverted -Endometrial echo complex: Evaluation of the endometrium was adequate. Suspected bicornuate and/or septate uterus The endometrial echo complex measured 1.3 cm. -Cervix: Within the lower uterine segment, upper cervical canal region, echogenic solid 0.7 x 0.4 x 0.4 cm focus is seen. Likely endocervical and/or endometrial polyp -Adenomyosis assessment: There are no sonographic findings of adenomyosis. -Fibroids: There are no fibroids. Right Ovary: Not visualized at the transabdominal or endovaginal probe Left Ovary: 2.9 x 2.6 x 2.4 cm. Free Fluid: No abnormal free fluid is present. IMPRESSION: Suspected bicornuate and/or septate uterus. Echogenic solid focus within the region of the lower uterine segment/upper cervix. Likely polyp. Nonvisualization of the right ovary. No free fluid or pathologic adnexal mass Construction Grip[facility] Transcribe Date/Time: Dec 28 2023 9:09A Dictated by : ROSI HURST MD This examination was interpreted and the report reviewed and electronically signed by: ROSI HURST MD on Dec 28 2023 9:24AM EST [id number] [facility] 11-26-2023 36 Pt aware to contact medical records [facility] 36 Name of caller: Melodie ortiz Contact phone number: [phone] Relationship to Patient: patient Provider: Dr. Polk Practice: [facility] Chief Complaint/Reason for Call: Pt called in requesting a disk with all her MRI results so that she can take it to her upcoming neurology apt on Wednesday. Please follow up with the pt to advise. Best time of day caller can be reached: Any Patient advised that office/PCP has 24-48 business hours to return their call: Yes [facility] 3611-01-2023 36 S: Patient spoke madison h [facility] nurse regarding lab results B: had labs done 2-3 weeks ago via [facility] in [place] See my chart message from 10/26 A: Patient states psychiatrist sent her for labs recently and told her to follow up with PCP about anemia/iron deficiency. Patient sent my chart message to PCP, but believes PCP reviewed labs from 09/03 not the newest. This nurse unable to find more recent CBC. R: patient encouraged to call lab and have results faxed to office so PCP can review most recent. Patient is agreeable. Fax number provided. TE sent to office for review and follow up. Reason for Disposition Lab result questions Caller requesting routine or non-urgent lab result Protocols used: Information Only Call - No Vqbzcg-IZYET-KT, PCP Call - No Vwbhou-ALQSH-GI [facility] CNOVon 10-08-2023 CNOV Office Visit (OBGYWM ) -- JAZMIN HOWARD ([id number]) 89 F Date Time Provider Department 10/08/23 3:15 PM RADHA MELENDEZ OBGYWLupe During your visit today, we recorded the following information about you: Blood pressure Weight 130/82 123.6 kg Radha Melendez APRN.GAUGE AND INSTRUMENT INSPECTOR 10/08/2023 3:28 PM Signed Retail Business Development Manager offered: Patient declines. Jazmin Howard is a 23 year old female who presents for problem visit irregular menses for 4 month(s). HPI: Jun heavy bleeding for 7 days stopped for 7 days then another 7 days of heavy bleeding. No menses since. This week very like pink spotting only when wiping. Denies any abdominal pain or cramping. OB History T0 L0 SAB0 IAB0 Ectopic0 Multiple0 Live Births0 Sports Complex Attendant History LMP: 07/02/2023 (Approximate), Having periods Age at Menarche: Age at First : Age at Menopause: Sports Complex Attendant History Comments: Sexual Activity: Yes; Male Contraception: No contraception data on record PAST MEDICAL HISTORY Diagnosis Date Acid reflux Depression History of elbow surgery 05/03/2011 Mood disorder (HCC) PAST SURGICAL HISTORY Procedure Laterality Date ELBOW SURGERY HX 7th grade right elbow L'SCOPE CHOLECYSTECTOMY 2021 FAMILY HISTORY Problem Relation Age of Onset Hypertension Mother Colon Cancer Father Hypertension Maternal Grandmother Heart Maternal Grandmother Hypertension Maternal Grandfather Heart Maternal Grandfather Social History Tobacco Use Smoking status: Never Smokeless tobacco: Never Vaping Use Vaping Use: Never used Substance Use Topics Alcohol use: No Drug use: No Current Outpatient Medications Medication Sig esomeprazole magnesium (NEXIUM ORAL) Take 20 mg by mouth once daily. sertraline (ZOLOFT) 25 mg tablet TAKE 1AND1/2 TABLETS BY MOUTH DAILY lamoTRIgine (LAMICTAL) 100 mg tablet Take 1 tablet by mouth once daily. lamoTRIgine (LAMICTAL) 25 mg tablet TAKE 1 TABLET BY MOUTH EVERY DAY IN ADDITION TO TH 100MG No current facility-administered medications for this visit. Allergies As of Date: 10/08/2023 Allergen Noted Reaction BENADRYL [DIPHENHYDRAMINE] 09/04/2023 Other: See Comments LACTOSE 10/10/2014 Diarrhea MOBIC [MELOXICAM] 09/04/2023 Anaphylaxis Fully Assessed 10/08/2023 REVIEW OF SYSTEMS Abdomen: No bloating, early satiety, indigestion, or increased flatulence. No abdominal pain, nausea, vomiting, diarrhea, or constipation. Bladder: No dysuria, gross hematuria, urinary frequency, urinary urgency, or incontinence. Expanded ROS: N/A Allergies and current medication updated:Yes EXAM: Wt 272 lb 6.4 oz (123.6kg) LMP 07/02/2023 GENERAL: pleasant, female in no apparent distress HEENT: Normocephalic, atraumatic, mucus membranes moist, and no lesions CHEST: Normal inspiratory effort NEURO: alert and oriented x3,exam grossly non-focal EXTREMITIES: normal ASSESSMENT/PLAN: 1. Irregular menstrual cycle - ICD9: 626.4, ICD10: N92.6 Will notify patient of test results. - THYROID STIMULATING HORMONE - PROLACTIN - TESTOSTERONE, FREE AND TOTAL - DHEA-S BLD - HYDROXYPROGESTERONE-17 - FOLLICLE STIMULATING HORMONE - LUTEINIZING HORMONE - ESTRADIOL-17B BLD - HEMOGLOBIN A1C - US FEMALE PELVIS TRANSVAG Radha Melendez APRN.MALU Medical Decision Making: Problems: Moderate: New problem with uncertain prognosis Data: Unique test(s) ordered: 3+ Risk: Low: Low risk from testing/treatment Medical Decision Making Level: 4 - Moderate Allergies As of Date: 10/08/2023 Noted Allergy Reaction BENADRYL (DIPHENHYDRAMINE) 09/04/2023 14 - Other: See Comments Comments: anxiety LACTOSE 10/10/2014 6 - Diarrhea MOBIC (MELOXICAM) 09/04/2023 10 - Anaphylaxis Date Reviewed: 10/08/2023 Reviewed by: Isela Drake LPN - Fully Assessed Reason for Visit: Discussion [813] Primary Visit Diagnosis:Irregular menstrual cycle [N92.6] Order(s):lamoTRIgine (LAMICTAL) 100 mg tabletTake 2 tablets by mouth once daily.Disp: 90 tabletRfl: 0 THYROID STIMULATING HORMONE [SQTSH] Order #: [id number] FUTURE PROLACTIN [SQPROL] Order #: [id number] FUTURE TESTOSTERONE, FREE AND TOTAL [SQTFTEST] Order #: [id number] FUTURE DHEA-S BLD [SQDHEAS] Order #: [id number] FUTURE HYDROXYPROGESTERONE-17 [SQHPROG] Order #: [id number] FUTURE FOLLICLE STIMULATING HORMONE [SQFSH] Order #: [id number] FUTURE LUTEINIZING HORMONE [SQLH] Order #: [id number] FUTURE ESTRADIOL-17B BLD [SQE2] Order #: [id number] FUTURE HEMOGLOBIN A1C [VPYIY2X] Order #: [id number] FUTURE FEMALE PELVIS TRANSVAG [2804531] Order #: [id number] FUTURE Prescriptions as of 10/08/2023 - lamoTRIgine (LAMICTAL) 100 mg tablet Take 2 tablets by mouth once daily. - esomeprazole magnesium (NEXIUM ORAL) Take 20 mg by mouth once daily. - sertraline (ZOLOFT) 25 mg tablet TAKE 1AND1/2 TABLETS BY MOUTH DAILY Problem List As Of Date 10/08/2023 Noted Resolved (more content not included)... Normal [facility] DHEA-S [facility] 10-08-2023 DHEA-S [Mass/Vol] 140.6 ug/dL Low 148.0 - 407.0 ug/dL [facility] Comment on above: Reference ranges are age and gender specific. For additional information, reference range tables can be found in the laboratory test directory. The normal values are based on the following source: Dehydroepiandrosterone sulfate (DHEA S) [package insert V 17.0 Cambodian]. [facility] [email or web address], [place], [place]: December 2012. Interpretation and review of laboratory results Abnormal [facility] DHEA-S [Mass/Vol] 140.6 ug/dL Low 148.0-407.0 [facility] Comment on above: Order Comment: Speci men Type: BLOOD SPECIMEN Ordering Facility: [facility] Address: [address] [place] [address] Result Comment: Refe renvicky ranges are age and gender specific. For additional information, reference range tables can be found in the laboratory test directory. The normal values are based on the following source: Dehydroepiandrosterone sulfate (DHEA S) [package insert V 17.0 Cambodian]. [employer], [place], [place]: December 2012. Performed By: #### 3 016-3, 2842-3 #### [facility] CLIA [id number] [address] [place] [address] [place] ESTRADIOL-17B [facility] 10-08-19 24 E2 [Mass/Vol] 40 pg/mL [facility] Comment on above: This test is not yanna table for patients receiving treatment with the drug Fulvestrant (Faslodex). The drug causes an interference leading to falsely elevated estradiol results. Menstrual cycle Estradiol reference ranges: Follicular : < 234 pg/mL Ovulation : 41 to 398 pg/mL Luteal : < 342 pg/mL Estradiol reference ranges vary by gestational period: First trimester : 154 to 3243 pg/mL Second trimester : 1561 to 02542 pg/mL Third trimester : 8285 to >93860 pg/mL Post-menopausal Estradiol reference range: < 41 pg/mL Reference: 1. Estradiol - E2 (Estradiol III) [package insert V 3.0 Cambodian]. [facility], [place], [place], October 2015. Estradiol SerPl-mCncon 10-07 E2 [Mass/Vol] 40 pg/mL Normal [facility] Comment on above: Order Comment: Speci men Type: BLOOD SPECIMEN Ordering Facility: [facility] Address: [address] [place] [address] Result Comment: This test is not suitable for patients receiving treatment with the drug Fulvestrant (Faslodex). The drug causes an interference leading to falsely elevated estradiol results. Menstrual cycle Estradiol reference ranges: Follicular : < 234 pg/mL Ovulation : 41 to 398 pg/mL Luteal : < 342 pg/mL Estradiol reference ranges vary by gestational period: First trimester : 154 to 3243 pg/mL Second trimester : 1561 to 87892 pg/mL Third trimester : 8285 to >16231 pg/mL Post-menopausal Estradiol reference range: < 41 pg/mL Reference: 1. Estradiol - E2 (Estradiol III) [package insert V 3.0 Cambodian]. [facility], [place], [place], October 2015. Performed By: #### 3 016-3, 2842-3 #### [facility] CLIA [id number] [address] [place] [address] [place] FOLLICLE STIMULATING HORMONE on 10-08-2023 Follitropin Qn 5.9 m[IU]/mL See comment mIU/mL [facility] Comment on above: Reference range: Follicular: 3.5-12.5 mIU/mL Ovulation: 4.7-21.5 mIU/mL Luteal: 1.7-7.7 mIU/mL Postmenopausal: 25.8-134.8 mIU/mL [facility] SerPl-aCncon 10-08-2023 Follitropin Qn 5.9 m[IU]/mL Normal See comment [facility] Comment on above: Order Comment: Speci men Type: BLOOD SPECIMEN Ordering Facility: [facility] Address: [address] [place] [address] Result Comment: Refe rence range: Follicular: 3.5-12.5 mIU/mL Ovulation: 4.7-21.5 mIU/mL Luteal: 1.7-7.7 mIU/mL Postmenopausal: 25.8-134.8 mIU/mL Performed By: #### 3 016-3, 2842-3 #### [facility] CLIA [id number] [address] [place] [address] [place] HYDROXYPROGESTERONE-17on 17-HYDROXYPROGESTERON E QUANTITATIVE BY HPLC-MS/MS, SERUM OR PLASMA 48.53 ng/dL Normal <=206.00 [facility] Comment on above: Order Comment: Speci men Type: BLOOD SPECIMEN Ordering Facility: [facility] Address: [address] [place] [address] Result Comment: INTERPRETIVE INFORMATION for 17-Hydroxyprogesterone in females: Follicular 15 to 70 ng/dL Luteal 35 to 290 ng/dL REFERENCE INTERVAL: 17-Hydroxyprogesterone Qnt, HPLC-MS/MS Access complete set of age- and/or gender-specific reference intervals for this test in the [employer] Laboratory Test Directory ([email or web address]). This test was developed and its performance characteristics determined by [facility]. It has not been cleared or approved by the US Food and Drug Administration. This test was performed in a CLIA certified laboratory and is intended for clinical purposes. Performed By: [facility] [address] [place] [address] Metal Roofing Mechanic: Yasmani Tejeda MD, PhD CLIA Number: [id number] Performed By: #### 3 016-3, 284-3 #### [facility] CLIA [id number] [address] [place] [address] [place] HbA1c (Bld)on 10-08-2023 Average glucose Estimated from glycated hemoglobin (Bld) [Mass/Vol] 105 mg/dL [facility] Comment on above: eAG: (Estimated aver age glucose) is a calculated value from HgbA1c and is data entry representative of the average blood glucose level in the last 2-3 month period. HbA1c (Bld) [Mass fraction] 5.3 % 4.3 - 5.6 % [facility] Comment on above: [place] Diabetes As sociation guidelines indicate that patients with HgbA1c in the range 5.7-6.4% are at increased risk for development of diabetes, and intervention by lifestyle modification may be beneficial. HgbA1c greater or equal to 6.5% is considered diagnostic of diabetes. [facility] Average glucose Estimated from glycated hemoglobin (Bld) [Mass/Vol] 105 mg/dL Normal [facility] Comment on above: Order Comment: Eduardo deshpande Type: BLOOD SPECIMEN Ordering Facility: [facility] Address: [address] [place] [address] Result Comment: eAG: (Estimated average glucose) is a calculated value from HgbA1c and is data entry representative of the average blood glucose level in the last 2-3 month period. Performed By: #### 3 016-3, 2842-3 #### [facility] CLIA [id number] [address] [place] [address] [place] HbA1c (Bld) [Mass fraction] 5.3 % Normal 4.3-5.6 [facility] Comment on above: Order Comment: Eduardo deshpande Type: BLOOD SPECIMEN Ordering Facility: [facility] Address: [address] [place] [address] Result Comment: [place] Diabetes Association guidelines indicate that patients with HgbA1c in the range 5.7-6.4% are at increased risk for development of diabetes, and intervention by lifestyle modification may be beneficial. HgbA1c greater or equal to 6.5% is considered diagnostic of diabetes. Performed By: #### 3 016-3, 2842-3 #### [facility] CLIA [id number] [address] [place] [address] [place] LH SerPl-aCncon 10-08-2023 Lutropin Qn 18.2 m[IU]/mL Normal See comment [facility] Comment on above: Order Comment: Speci men Type: BLOOD SPECIMEN Ordering Facility: [facility] Address: [address] [place] [address] Result Comment: Refe rence range: Follicular: 2.4-12.6 mIU/mL Midcycle: 14.0-95.6 mIU/mL Luteal: 1.0-11.4 mIU/mL [place]: 7.7-58.5 mIU/mL Performed By: #### 3 016-3, 2842-3 #### [facility] CLIA [id number] [address] [place] [address] [place] LUTEINIZING HORMONEon 2023 Lutropin Qn 18.2 m[IU]/mL See comment mIU/mL [facility] Comment on above: Reference range: Follicular: 2.4-12.6 mIU/mL Midcycle: 14.0-95.6 mIU/mL Luteal: 1.0-11.4 mIU/mL [place]: 7.7-58.5 mIU/mL No Panel Informationon 10-07 [facility] Interpretation and review of laboratory results Normal [facility] PROLACTINon 10-08-2023 Prolactin [Mass/Vol] 18.4 ng/mL 4.5 - 2 6.8 ng/mL [facility] Comment on above: Prolactin test is pe rformed using the [facility] Electrochemiluminescence Immunoassay method. Results obtained with different methods or kits cannot be used interchangeably. Prolactin SerPl-mCncon 10-07 Prolactin [Mass/Vol] 18.4 ng/mL Normal 4.5-26.8 [facility] Comment on above: Order Comment: Speci men Type: BLOOD SPECIMEN Ordering Facility: [facility] Address: [address] [place] [address] Result Comment: Prol actin test is performed using the [facility] Electrochemiluminescence Immunoassay method. Results obtained with different methods or kits cannot be used interchangeably. Performed By: #### 3 016-3, 2842-3 #### [facility] CLIA [id number] [address] [place] [address] [place] TESTOSTERONE, FREE AND TOTAL on 10-08-2023 TESTOSTERONE, FREE, S 1.33 ng/dL High <0.13-1.08 [facility] Comment on above: Order Comment: Specdagoberto deshpande Type: BLOOD SPECIMEN Ordering Facility: [facility] Address: [address] [place] [address] Result Comment: ADDITIONAL INFORMATION This test was developed and its performance characteristics determined by [facility] in a manner consistent with CLIA requirements. This test has not been cleared or approved by the U.S. Food and Drug Administration. Performed By: #### T FTEST #### [facility] CLIA [id number] [address] [place] [id number] TESTOSTERONE, TOTAL, S 58 ng/dL Normal 8-60 [facility] Comment on above: Order Comment: Speci jeramy Type: BLOOD SPECIMEN Ordering Facility: [facility] Address: [address] [place], [place] [address] [address] Result Comment: ADDITIONAL INFORMATION Testing performed by Liquid Chromatography-Tandem Mass Spectrometry (LC-MS/MS). This test was developed and its performance characteristics determined by [facility] in a manner consistent with CLIA requirements. This test has not been cleared or approved by the U.S. Food and Drug Administration. Test Performed by: [facility] [address] [place] [address] Regulatory Submissions Associate: Marielos Cook Ph.D.; CLIA# [id number] Performed By: #### T FTEST #### [facility] CLIA [id number] [address] [place] [id number] THYROID STIMULATING HORMONEo n 10-08-2023 TSH Qn 2.100 m[IU]/L [facility] Comment on above: If the patient is pr egnant, TSH reference range varies by gestational period: First Trimester (weeks 9-12): 0.180-2.990 mIU/L Second Trimester: 0.110-3.980 mIU/L Third Trimester: 0.480-4.710 mIU/L Abram Blue et al. A Practical Approach for the Verifications and Determination of Site- and Trimester-Specific Reference Intervals for Thyroid Function tests in . Thyroid, 2019:29:3:412-420. Henok Esquivel et al. 2017 Guidelines of the [place] Thyroid Association for the Diagnosis and Management of Thyroid Disease during and the . Thyroid, 2017:27:3:315-389. TSH SerPl-aCncon 10-08-2023 TSH Qn 2.100 m[IU]/L Normal 0.270-4.200 [facility] Comment on above: Order Comment: Speci men Type: BLOOD SPECIMEN Ordering Facility: [facility] Address: [address] [place] [address] Result Comment: If t he patient is , TSH reference range varies by gestational period: First Trimester (weeks 9-12): 0.180-2.990 mIU/L Second Trimester: 0.110-3.980 mIU/L Third Trimester: 0.480-4.710 mIU/L Abram Blue et al. A Practical Approach for the Verifications and Determination of Site- and Trimester-Specific Reference Intervals for Thyroid Function tests in . Thyroid, 2019:29:3:412-420. Henok Esquivel et al. 2017 Guidelines of the [place] Thyroid Association for the Diagnosis and Management of Thyroid Disease during and the . Thyroid, 2017:27:3:315-389. Performed By: #### 3 016-3, 2842-3 #### [facility] CLIA [id number] [address] [place] [address] [place] MR Cervical spine WO contras ton 09-17-2023 * * *Final Report* * * DATE OF EXAM: Sep 16 2023 3:30PM SHABNAM 0297 - MRI CERVICAL SPINE WO IVCON / PROCEDURE REASON: M17.812 CERVICAL SPONDYLOSIS, R20.2 PARESTHESIAS * * * * Physician Interpretation * * * * EXAMINATION: MRI CERVICAL SPINE WO IVCON, MRA BRAIN WO IVCON CLINICAL HISTORY: M17.812 CERVICAL SPONDYLOSIS, R20.2 PARESTHESIAS TECHNIQUE: Routine cervical spine MR protocol without gadolinium. Intracranial 3D [id number]-[id number]-ghcluq MRA with post-processing performed at the modality and 2D multiplanar and 3D maximum intensity projections were created, reviewed and archived. MQ: [id number] COMPARISON: CT of the cervical spine 09/04/2023. RESULT: Counting reference: Craniocervical junction. Anatomic Variants: None. Localizer images: No additional findings. Alignment: Alignment is anatomic. Craniocervical junction: Craniocervical junction is normal. Cord: The visualized cord is within normal limits of signal intensity and morphology. Bone marrow signal/fracture: No evidence of pathologic marrow infiltration. No evidence of prior fracture. Cervical soft tissues: The paraspinal soft tissues are within normal limits. C2-C3: Canal and foramina are patent. C3-C4: Canal and foramina are patent. C4-C5: Canal and foramina are patent. C5-C6: Minimal disc bulge. No significant canal or foraminal stenosis. C6-C7: Minimal disc bulge. No significant canal or foraminal stenosis. C7-T1: Canal and foramina are patent. INTRACRANIAL MRA RESULT: Intracranial ICAs, proximal MCA segments bilaterally, as well as proximal ECA segments bilaterally are patent without significant focal narrowing or aneurysm. Intracranial vertebral arteries, basilar artery, and proximal EMBOSSER APPRENTICE segments bilaterally are patent and without significant focal narrowing or aneurysm. [place] [facility] Provider, [facility] - 09/17/2023 * * *Final Report* * * DATE OF EXAM: Sep 16 2023 3:30PM SHAB[facility] 0297 - MRI CERVICAL SPINE WO IVCON / PROCEDURE REASON: M17.812 CERVICAL SPONDYLOSIS, R20.2 PARESTHESIAS * * * * Physician Interpretation * * * * EXAMINATION: MRI CERVICAL SPINE WO IVCON, MRA BRAIN WO IVCON CLINICAL HISTORY: M17.812 CERVICAL SPONDYLOSIS, R20.2 PARESTHESIAS TECHNIQUE: Routine cervical spine MR protocol without gadolinium. Intracranial 3D wqtn-sm-qrweqy MRA with post-processing performed at the modality and 2D multiplanar and 3D maximum intensity projections were created, reviewed and archived. MQ: [id number]_3 COMPARISON: CT of the cervical spine 09/04/2023. RESULT: Counting reference: Craniocervical junction. Anatomic Variants: None. Localizer images: No additional findings. Alignment: Alignment is anatomic. Craniocervical junction: Craniocervical junction is normal. Cord: The visualized cord is within normal limits of signal intensity and morphology. Bone marrow signal/fracture: No evidence of pathologic marrow infiltration. No evidence of prior fracture. Cervical soft tissues: The paraspinal soft tissues are within normal limits. C2-C3: Canal and foramina are patent. C3-C4: Canal and foramina are patent. C4-C5: Canal and foramina are patent. C5-C6: Minimal disc bulge. No significant canal or foraminal stenosis. C6-C7: Minimal disc bulge. No significant canal or foraminal stenosis. C7-T1: Canal and foramina are patent. INTRACRANIAL MRA RESULT: Intracranial ICAs, proximal MCA segments bilaterally, as well as proximal ECA segments bilaterally are patent without significant focal narrowing or aneurysm. Intracranial vertebral arteries, basilar artery, and proximal EMBOSSER APPRENTICE segments bilaterally are patent and without significant focal narrowing or aneurysm. IMPRESSION IMPRESSION: No significant canal or foraminal stenosis throughout the cervical region. Normal morphology and signal intensity of the visualized spinal cord. No large arterial vessel occlusion, significant focal narrowing, or aneurysmal intracranial xtbo-yo-thwsiz MRA. Anatomic Variant: None. Assume 7 cervical vertebrae with counting from the craniocervical junction. [facility] Transcribe Date/Time: Sep 17 2023 4:51P Dictated by : JOSE MIGUEL REVELES MD This examination was interpreted and the report reviewed and electronically signed by: JOSE MIGUEL REVELES MD on Sep 17 2023 4:57PM [facility] MRA Head vessels WO contrast on 09-17-2023 * * *Final Report* * * DATE OF EXAM: Sep 16 2023 3:29PM [facility] 0272 - MRA BRAIN WO IVCON / PROCEDURE REASON: G43.E11, H47.10 * * * * Physician Interpretation * * * * EXAMINATION: MRI CERVICAL SPINE WO IVCON, MRA BRAIN WO IVCON CLINICAL HISTORY: M17.812 CERVICAL SPONDYLOSIS, R20.2 PARESTHESIAS TECHNIQUE: Routine cervical spine MR protocol without gadolinium. Intracranial 3D fhro-fp-xepydo MRA with post-processing performed at the modality and 2D multiplanar and 3D maximum intensity projections were created, reviewed and archived. MQ: MRCSPWO_3 COMPARISON: CT of the cervical spine 09/04/2023. RESULT: Counting reference: Craniocervical junction. Anatomic Variants: None. Localizer images: No additional findings. Alignment: Alignment is anatomic. Craniocervical junction: Craniocervical junction is normal. Cord: The visualized cord is within normal limits of signal intensity and morphology. Bone marrow signal/fracture: No evidence of pathologic marrow infiltration. No evidence of prior fracture. Cervical soft tissues: The paraspinal soft tissues are within normal limits. C2-C3: Canal and foramina are patent. C3-C4: Canal and foramina are patent. C4-C5: Canal and foramina are patent. C5-C6: Minimal disc bulge. No significant canal or foraminal stenosis. C6-C7: Minimal disc bulge. No significant canal or foraminal stenosis. C7-T1: Canal and foramina are patent. INTRACRANIAL MRA RESULT: Intracranial ICAs, proximal MCA segments bilaterally, as well as proximal ECA segments bilaterally are patent without significant focal narrowing or aneurysm. Intracranial vertebral arteries, basilar artery, and proximal EMBOSSER APPRENTICE segments bilaterally are patent and without significant focal narrowing or aneurysm. [facility]23 * * *Final Report* * * DATE OF EXAM: Sep 16 2023 3:29PM [facility] 0272 - MRA BRAIN WO IVCON / PROCEDURE REASON: G43.E11, H47.10 * * * * Physician Interpretation * * * * EXAMINATION: MRI CERVICAL SPINE WO IVCON, MRA BRAIN WO IVCON CLINICAL HISTORY: M17.812 CERVICAL SPONDYLOSIS, R20.2 PARESTHESIAS TECHNIQUE: Routine cervical spine MR protocol without gadolinium. Intracranial 3D ockk-on-icglor MRA with post-processing performed at the modality and 2D multiplanar and 3D maximum intensity projections were created, reviewed and archived. MQ: MRCSPWO_3 COMPARISON: CT of the cervical spine 09/04/2023. RESULT: Counting reference: Craniocervical junction. Anatomic Variants: None. Localizer images: No additional findings. Alignment: Alignment is anatomic. Craniocervical junction: Craniocervical junction is normal. Cord: The visualized cord is within normal limits of signal intensity and morphology. Bone marrow signal/fracture: No evidence of pathologic marrow infiltration. No evidence of prior fracture. Cervical soft tissues: The paraspinal soft tissues are within normal limits. C2-C3: Canal and foramina are patent. C3-C4: Canal and foramina are patent. C4-C5: Canal and foramina are patent. C5-C6: Minimal disc bulge. No significant canal or foraminal stenosis. C6-C7: Minimal disc bulge. No significant canal or foraminal stenosis. C7-T1: Canal and foramina are patent. INTRACRANIAL MRA RESULT: Intracranial ICAs, proximal MCA segments bilaterally, as well as proximal ECA segments bilaterally are patent without significant focal narrowing or aneurysm. Intracranial vertebral arteries, basilar artery, and proximal EMBOSSER APPRENTICE segments bilaterally are patent and without significant focal narrowing or aneurysm. IMPRESSION IMPRESSION: No significant canal or foraminal stenosis throughout the cervical region. Normal morphology and signal intensity of the visualized spinal cord. No large arterial vessel occlusion, significant focal narrowing, or aneurysmal intracranial kpzs-ta-ocxzlv MRA. Anatomic Variant: None. Assume 7 cervical vertebrae with counting from the craniocervical junction. Construction Grip: [facility] Transcribe Date/Time: Sep 17 2023 4:51P Dictated by : JOSE MIGUEL REVELES MD This examination was interpreted and the report reviewed and electronically signed by: JOSE MIGUEL REVELES MD on Sep 17 2023 4:57PM EST [facility] No Panel Informationon 09-16 IMPRESSION: No significant canal or foraminal stenosis throughout the cervical region. Normal morphology and signal intensity of the visualized spinal cord. No large arterial vessel occlusion, significant focal narrowing, or aneurysmal intracranial wdyk-cq-qrhtwu MRA. Anatomic Variant: None. Assume 7 cervical vertebrae with counting from the craniocervical junction. Construction Grip: [facility] Transcribe Date/Time: Sep 17 2023 4:51P Dictated by : JOSE MIGUEL REVELES MD This examination was interpreted and the report reviewed and electronically signed by: JOSE MIGUEL REVELES MD on Sep 17 2023 4:57PM [facility] No Panel InformationOrdered By: Ccf Provider on 09-17-2023 [facility] MR Cervical spine WO contras ton 09-16-2023 Radiology Study observation (narrative) [facility] MRA BRAIN WO IVCONon 024 MRA BRAIN WO IVCON * * *Final Report* * * DATE OF EXAM: Sep 16 2023 3:29PM [facility] 0272 - MRA BRAIN WO IVCON / PROCEDURE REASON: G43.E11, H47.10 * * * * Physician Interpretation * * * * EXAMINATION: MRI CERVICAL SPINE WO IVCON, MRA BRAIN WO IVCON CLINICAL HISTORY: M17.812 CERVICAL SPONDYLOSIS, R20.2 PARESTHESIAS TECHNIQUE: Routine cervical spine MR protocol without gadolinium. Intracranial 3D tufw-kc-ynzgue MRA with post-processing performed at the modality and 2D multiplanar and 3D maximum intensity projections were created, reviewed and archived. MQ: MRCSPWO_3 COMPARISON: CT of the cervical spine 09/04/2023. RESULT: Counting reference: Craniocervical junction. Anatomic Variants: None. Localizer images: No additional findings. Alignment: Alignment is anatomic. Craniocervical junction: Craniocervical junction is normal. Cord: The visualized cord is within normal limits of signal intensity and morphology. Bone marrow signal/fracture: No evidence of pathologic marrow infiltration. No evidence of prior fracture. Cervical soft tissues: The paraspinal soft tissues are within normal limits. C2-C3: Canal and foramina are patent. C3-C4: Canal and foramina are patent. C4-C5: Canal and foramina are patent. C5-C6: Minimal disc bulge. No significant canal or foraminal stenosis. C6-C7: Minimal disc bulge. No significant canal or foraminal stenosis. C7-T1: Canal and foramina are patent. INTRACRANIAL MRA RESULT: Intracranial ICAs, proximal MCA segments bilaterally, as well as proximal ECA segments bilaterally are patent without significant focal narrowing or aneurysm. Intracranial vertebral arteries, basilar artery, and proximal EMBOSSER APPRENTICE segments bilaterally are patent and without significant focal narrowing or aneurysm. IMPRESSION: No significant canal or foraminal stenosis throughout the cervical region. Normal morphology and signal intensity of the visualized spinal cord. No large arterial vessel occlusion, significant focal narrowing, or aneurysmal intracranial izif-za-dufsvm MRA. Anatomic Variant: None. Assume 7 cervical vertebrae with counting from the craniocervical junction. [employer] Grip: [facility] Transcribe Date/Time: Sep 17 2023 4:51P Dictated by : JOSE MIGUEL REVELES MD This examination was interpreted and the report reviewed and electronically signed by: JOSE MIGUEL REVELES MD on Sep 17 2023 4:57PM EST [id number] Normal [facility] MRA Head vessels WO contrast on 09-16-2023 Radiology Study observation (narrative) [facility] MRI CERVICAL SPINE WO IVCONo n 09-16-2023 MRI CERVICAL SPINE WO IVCON * * *Final Report* * * DATE OF EXAM: Sep 16 2023 3:30PM [facility] 0297 - MRI CERVICAL SPINE WO IVCON / PROCEDURE REASON: M17.812 CERVICAL SPONDYLOSIS, R20.2 PARESTHESIAS * * * * Physician Interpretation * * * * EXAMINATION: MRI CERVICAL SPINE WO IVCON, MRA BRAIN WO IVCON CLINICAL HISTORY: M17.812 CERVICAL SPONDYLOSIS, R20.2 PARESTHESIAS TECHNIQUE: Routine cervical spine MR protocol without gadolinium. Intracranial 3D bnkh-xo-sralsb MRA with post-processing performed at the modality and 2D multiplanar and 3D maximum intensity projections were created, reviewed and archived. MQ: MRCSPWO_3 COMPARISON: CT of the cervical spine 09/04/2023. RESULT: Counting reference: Craniocervical junction. Anatomic Variants: None. Localizer images: No additional findings. Alignment: Alignment is anatomic. Craniocervical junction: Craniocervical junction is normal. Cord: The visualized cord is within normal limits of signal intensity and morphology. Bone marrow signal/fracture: No evidence of pathologic marrow infiltration. No evidence of prior fracture. Cervical soft tissues: The paraspinal soft tissues are within normal limits. C2-C3: Canal and foramina are patent. C3-C4: Canal and foramina are patent. C4-C5: Canal and foramina are patent. C5-C6: Minimal disc bulge. No significant canal or foraminal stenosis. C6-C7: Minimal disc bulge. No significant canal or foraminal stenosis. C7-T1: Canal and foramina are patent. INTRACRANIAL MRA RESULT: Intracranial ICAs, proximal MCA segments bilaterally, as well as proximal ECA segments bilaterally are patent without significant focal narrowing or aneurysm. Intracranial vertebral arteries, basilar artery, and proximal EMBOSSER APPRENTICE segments bilaterally are patent and without significant focal narrowing or aneurysm. IMPRESSION: No significant canal or foraminal stenosis throughout the cervical region. Normal morphology and signal intensity of the visualized spinal cord. No large arterial vessel occlusion, significant focal narrowing, or aneurysmal intracranial ijwr-yz-qfqlli MRA. Anatomic Variant: None. Assume 7 cervical vertebrae with counting from the craniocervical junction. Construction Grip: [facility] Transcribe Date/Time: Sep 17 2023 4:51P Dictated by : JOSE MIGUEL REVELES MD This examination was interpreted and the report reviewed and electronically signed by: JOSE MIGUEL REVELES MD on Sep 17 2023 4:57PM EST [id number] [facility] XR EPIDURAL BLOOD PATCHon XR EPIDURAL BLOOD PATCH Reasons for examination: Post spinal tap postural headaches, nausea. Patient had a lumbar puncture 3 days ago, and developed persistent spinal tap headache syndrome. After obtaining informed consent, sterile preparation, draping, and local anesthetic administration, a 22 g epidural needle was positioned in the midline dorsal epidural space under direct fluoroscopic guidance. Epidural placement was confirmed with an injection of 1-2 cc Isovue, outlining the dorsal surface of the thecal sac. A sample of 7 cc's of the patients own blood was obtained sterilely from an i.v.site, and instilled down the epidural needle. The patient tolerated the procedure, and there were no immediate complications. Fluoroscopic dose Ka,r = 7.7 mGy IMPRESSION: Satisfactory fluoroscopic guided lumbar dural blood patch. Report Dictated on Authenticated by: Eric Hernández On: 09/06/2023 14:18 Read by: ERIC HERNÁNDEZ MD, MD Date: 09/06/2023 14:18 [facility] ALLIED HEALTHon 09-04-2023 ALLIED HEALTH HNO ID: [id number] Author: DESTINEE MITTAL Tech Service: Radiology Author Type: Voip Engineer Type: Allied Health Filed: 09/04/2023 17:44 Note Text: Radiology Service Progress Note PATIENT NAME: Jazmin Howard DATE OF SERVICE: September 04, 2023 TIME: 5:44 PM PATIENT IDENTITY VERIFICATION COMPLETED USING TWO (2) IDENTIFIERS: Name and Date of confirmed by patient verbally and Name and Date of confirmed by identification band. FALL SCREENING: Has the patient had 2 falls in the last year or 1 fall with injury or currently using an Ambulatory Assistive Device (Walker, Cane, Wheelchair, Crutches, etc.)? Emergency Room Patient: Screened in ED PATIENT GENDER DATA: Female. status: : No status: NO. PATIENT RELEVANT IMPLANT DATA REVIEWED: Yes PATIENT PRESENTS WITH AN IMPLANTABLE OR ATTACHED INSTRUMENT ENGINEER: No RADIOLOGY DEPARTMENT: CT; Exam(s) Completed: Brain and Spine PERIPHERAL IV DATA: Inpatient: see LDA documentation SIGNED BY: Katy Spears September 04, 2023 5:44 PM Normal [facility] BETA HCG, QUANTITATIVE FOR E Chris 09-04-2023 HCG.beta subunit Qn m[IU]/mL Normal <5.0 [facility] Comment on above: Order Comment: Speci men Type: BLOOD SPECIMENOrdering Facility: [facility] Address: [address] [place] [address] Result Comment: Leonides sanders Performed By: #### Stephanie LION, , 1988-09 ####[facility] [id number] [place] [address] [place] Basic metabolic 2000 panelon 09-04-2023 Anion gap [Moles/Vol] 12 mmol/L Normal 9-18 [facility] Comment on above: Order Comment: Speci men Type: BLOOD SPECIMENOrdering Facility: [facility] Address: [address] [place] [address] Performed By: #### Stephanie LION, , 1988-09 ####[facility] [id number] [place] [address] [place] Calcium [Mass/Vol] 9.3 mg/dL Normal 8.5-10.2 [facility] Comment on above: Order Comment: Speci men Type: BLOOD SPECIMENOrdering Facility: [facility] Address: [address] [place] [address] Performed By: #### Stephanie LINO, , 1988-09 ####[facility] [id number] [place] [address] [place] Chloride [Moles/Vol] 106 mmol/L High 97-105 [facility] Comment on above: Order Comment: Speci men Type: BLOOD SPECIMENOrdering Facility: [facility] Address: [address] [place] [address] Performed By: #### Stephanie CHOIED, , 1988-09 ####[facility] [id number] [place] [address] [place] CO2 [Moles/Vol] 23 mmol/L Normal 22-30 [facility] Comment on above: Order Comment: Speci men Type: BLOOD SPECIMENOrdering Facility: [facility] Address: [address] [place] [address] Performed By: #### Stephanie CHOIED, , 1988-09 ####[facility]ORY[facility]IA [id number] [place] [address] [place] Creatinine [Mass/Vol] 0.94 mg/dL Normal 0.58-0.96 [facility] Comment on above: Order Comment: Speci men Type: BLOOD SPECIMENOrdering Facility: [facility] Address: [address] [place] [address] Performed By: #### Stephanie CHOISELAM, , 1988-09 ####[facility] [id number] [address] Creatinine and Glomerular filtration rate.predicted panel (S/P/Bld) 87 mL/min/1.73m??? Normal >=60 [facility] Comment on above: Order Comment: Speci men Type: BLOOD SPECIMENOrdering Facility: [facility] Address: [address] [place] [address] Result Comment: Ilda mated Glomerular Filtration Rate (eGFR) is calculated using the 2020 CKD-EPI creatinine equation. This equation utilizes serum creatinine, sex, and age as parameters. The creatinine assay has traceable calibration to isotope dilution-mass spectrometry. Refer to KDIGO guidelines for clinical interpretation. In patients with unstable renal function, e.g. those with acute kidney injury, the eGFR may not accurately reflect actual GFR. Performed By: #### H JIMBOED, , 1988-09 ####[facility] [id number] [place] [id number] [place] Glucose [Mass/Vol] 93 mg/dL Normal 74-99 [facility] Comment on above: Order Comment: Eduardo deshpande Type: BLOOD SPECIMENOrdering Facility: [facility] Address: [address] [place] [address] Result Comment: The [place] Diabetes Association (ADA) provides guidance for cutoff values for fasting glucose and random glucose. The ADA defines fasting as no caloric intake for at least 8 hours. Fasting plasma glucose results between 100 to 125 mg/dL indicate increased risk for diabetes (prediabetes). Fasting plasma glucose results greater than or equal to 126 mg/dL meet the criteria for diagnosis of diabetes. In the absence of unequivocal hyperglycemia, results should be confirmed by repeat testing. In a patient with classic symptoms of hyperglycemia or hyperglycemic crisis, random plasma glucose results greater than or equal to 200 mg/dL meet the criteria for diagnosis of diabetes. Reference: Standards of Medical Care in Diabetes 2016, [place] [employer] Association. Diabetes Care. 2016.39(Suppl 1). Performed By: #### H CGED, 1988-09 ####[facility] [id number] [place] [address] [place] Potassium [Moles/Vol] 4.1 mmol/L Normal 3.7-5.1 [facility] Comment on above: Order Comment: Eduardo deshpande Type: BLOOD SPECIMENOrdering Facility: [facility] Address: [address] [place] [address] Performed By: #### H JIMBOED, 1988-09 ####[facility]ORY[facility]IA [id number] [place] [id number] [place] Sodium [Moles/Vol] 141 mmol/L Normal 136-144 [facility] Comment on above: Order Comment: Eduardo deshpande Type: BLOOD SPECIMENOrdering Facility: [facility] Address: [address] [place] [address] Performed By: #### H CGED, 1988-09 ####[facility]ORY[facility] [id number] [place] [address] [place] Urea nitrogen [Mass/Vol] 17 mg/dL Normal 7-21 [facility] Comment on above: Order Comment: Eduardo deshpande Type: BLOOD SPECIMENOrdering Facility: [facility] Address: [address] [place] [address] Performed By: #### H CGED, 59298-1, 1988- ####[facility]ORYCLIA [id number] [place] [address] [place] CBC W Auto Differential pane l (Bld)on 09-04-2023 Basophils (Bld) [#/Vol] 0.03 10*3/uL Normal <0.11 [facility] Comment on above: Order Comment: Speci men Type: BLOOD SPECIMEN [facility] Address: [address] [place] [address] Performed By: #### 5 7021-8 #### [facility] CLIA [id number] [address] [place] Basophils/100 WBC (Bld) 0.4 % Normal [facility] Comment on above: Order Comment: Speci men Type: BLOOD SPECIMEN [facility] Address: [address] [place] [address] Performed By: #### 5 7021-8 #### [facility] CLIA [id number] [address] [place] Differential cell count method Nom (Bld) Auto Normal [facility] Comment on above: Order Comment: Speci men Type: BLOOD SPECIMEN [facility] Address: [address] [place] [address] Performed By: #### 5 7021-8 #### [facility] CLIA [id number] [address] [place] [address] [place] Eosinophils (Bld) [#/Vol] 0.11 10*3/uL Normal <0.46 [facility] Comment on above: Order Comment: Speci men Type: BLOOD SPECIMEN [facility] Address: [facility] [place] [address] Performed By: #### 5 7021-8 #### [facility] CLIA [id number] [address] [place] Eosinophils/100 WBC (Bld) 1.6 % Normal [facility] Comment on above: Order Comment: Speci men Type: BLOOD SPECIMEN [facility] Address: [address] [place] [address] Performed By: #### 5 7021-8 #### [facility] CLIA [id number] [address] [place] Erythrocyte distribution width (RBC) [Ratio] 14.8 % Normal 11.5-15.0 [facility] Comment on above: Order Comment: Speci men Type: BLOOD SPECIMEN [facility] Address: [address] [place] [address] Performed By: #### 5 7021-8 #### [facility] CLIA [id number] [address] [place] Hematocrit (Bld) [Volume fraction] 35.2 % Low 36.0-46.0 [facility] Comment on above: Order Comment: Speci men Type: BLOOD SPECIMEN [facility] Address: [address] [place] [address] Performed By: #### 5 7021-8 #### [facility] CLIA [id number] [address] [place] Hemoglobin (Bld) [Mass/Vol] 11.0 g/dL Low 11.5-15.5 [facility] Comment on above: Order Comment: Speci men Type: BLOOD SPECIMEN [facility] Address: [address] [place] [address] Performed By: #### 5 7021-8 #### [facility] CLIA [id number] [address] [place] Immature granulocytes (Bld) [#/Vol] 10*3/uL Normal <0.10 [facility] Comment on above: Order Comment: Speci men Type: BLOOD SPECIMEN [facility] Address: [address] [place] [address] Performed By: #### 5 7021-8 #### [facility] CLIA [id number] [address] [place] Immature granulocytes/100 WBC (Bld) 0.3 % Normal [facility] Comment on above: Order Comment: Speci men Type: BLOOD SPECIMEN [facility] Address: [address] [place] [address] Performed By: #### 5 7021-8 #### [facility] CLIA [id number] [address] [place] Lymphocytes (Bld) [#/Vol] 2.44 10*3/uL Normal 1.00-4.00 [facility] Comment on above: Order Comment: Speci men Type: BLOOD SPECIMEN [facility] Address: [address] [place] [address] Performed By: #### 5 7021-8 #### [facility] CLIA [id number] [address] Lymphocytes/100 WBC (Bld) 36.3 % Normal [facility] Comment on above: Order Comment: Speci men Type: BLOOD SPECIMEN [facility] Address: [address] [place] [address] Performed By: #### 5 7021-8 #### [facility] CLIA [id number] [address] MCH (RBC) [Entitic mass] 25.3 pg Low 26.0-34.0 [facility] Comment on above: Order Comment: Speci men Type: BLOOD SPECIMEN [facility] Address: [address] [place] [address] Performed By: #### 5 7021-8 #### [facility] CLIA [id number] [address] [place] MCHC (RBC) [Mass/Vol] 31.3 g/dL Normal 30.5-36.0 [facility] Comment on above: Order Comment: Speci men Type: BLOOD SPECIMEN [facility] Address: [address] [place] [address] Performed By: #### 5 7021-8 #### [facility] CLIA [id number] [address] MCV (RBC) [Entitic vol] 81.1 fL Normal 80.0-100.0 [facility] Comment on above: Order Comment: Speci men Type: BLOOD SPECIMEN Ordering Facility: [facility] Address: [address] [place] [address] Performed By: #### 5 7021-8 #### [facility] CLIA [id number] [address] [place] [address] [place] Monocytes (Bld) [#/Vol] 0.52 10*3/uL Normal <0.87 [facility] Comment on above: Order Comment: Speci men Type: BLOOD SPECIMEN Ordering Facility: [facility] Address: [address] [place] [address] Performed By: #### 5 7021-8 #### [facility] CLIA [id number] [address] [place] [address] [place] Monocytes/100 WBC (Bld) 7.7 % Normal [facility] Comment on above: Order Comment: Speci men Type: BLOOD SPECIMEN Ordering Facility: [facility] Address: [address] [place] [address] Performed By: #### 5 7021-8 #### [facility] CLIA [id number] [address] [place] [address] [place] Neutrophils (Bld) [#/Vol] 3.61 10*3/uL Normal 1.45-7.50 [facility] Comment on above: Order Comment: Speci men Type: BLOOD SPECIMEN Ordering Facility: [facility] Address: [address] [place] [address] Performed By: #### 5 7021-8 #### [facility] CLIA [id number] [address] [place] Neutrophils/100 WBC (Bld) 53.7 % Normal [facility] Comment on above: Order Comment: Speci men Type: BLOOD SPECIMEN Ordering Facility: [facility] Address: [address] [place] [address] Performed By: #### 5 7021-8 #### [facility] CLIA [id number] [address] [place] [address] [place] Nucleated RBC (Bld) [#/Vol] 10*3/uL Normal <0.01 [facility] Comment on above: Order Comment: Speci men Type: BLOOD SPECIMEN Ordering Facility: [facility] Address: [address] [place] [address] Performed By: #### 5 7021-8 #### [facility] CLIA [id number] [address] [place] [address] [place] Nucleated RBC/100 WBC (Bld) [Ratio] 0.0 /100 WBC Normal [facility] Comment on above: Order Comment: Speci men Type: BLOOD SPECIMEN Ordering Facility: [facility] Address: [address] [place] [address] Performed By: #### 5 7021-8 #### [facility] CLIA [id number] [address] [place] [address] [place] Platelet mean volume (Bld) [Entitic vol] 9.4 fL Normal 9.0-12.7 [facility] Comment on above: Order Comment: Speci men Type: BLOOD SPECIMEN Ordering Facility: [facility] Address: [address] [place] [address] Performed By: #### 5 7021-8 #### [facility] CLIA [id number] [address] [place] [address] [place] Platelets (Bld) [#/Vol] 252 10*3/uL Normal 150-400 [facility] Comment on above: Order Comment: Speci men Type: BLOOD SPECIMEN Ordering Facility: [facility] Address: [address] [place] [address] Performed By: #### 5 7021-8 #### [facility] CLIA [id number] [address] [place] [address] [place] RBC (Bld) [#/Vol] 4.34 10*6/uL Normal 3.90-5.20 [facility] Comment on above: Order Comment: Speci men Type: BLOOD SPECIMEN Ordering Facility: [facility] Address: [address] [place] [address] Performed By: #### 5 7021-8 #### [facility] CLIA [id number] [address] [place] [address] [place] WBC (Bld) [#/Vol] 6.73 10*3/uL Normal 3.70-11.00 [facility] Comment on above: Order Comment: Speci men Type: BLOOD SPECIMEN Ordering Facility: [facility] Address: [address] [place] [id number] Performed By: #### 5 7021-8 #### [facility] CLIA [id number] [address] [place] [address] [facility] OF [place]U CRP SerPl-mCncon 09-04-2023 CRP [Mass/Vol] 0.7 mg/dL Normal <0.9 [facility] Comment on above: Order Comment: Specdagoberto jeramy Type: BLOOD SPECIMENOrdering Facility: [facility] Address: [address] [place] [id number] Performed By: #### H CGED, 97[address]-6, 1987-09 ####[facility] [id number] [address] BRAIN WO IVCONon 09-04-[address] BRAIN WO IVCON * * *Final Report* * * DATE OF EXAM: Sep 04 2023 5:46PM [facility] 0504 - CT BRAIN WO IVCON / PROCEDURE REASON: Headache, sudden, severe * * * * Physician Interpretation * * * * EXAMINATION: CT BRAIN WO IVCON CLINICAL HISTORY: Headache TECHNIQUE: Serial axial images without IV contrast were obtained from the vertex to the foramen magnum. MQ: CTBWO_3 CT Radiation dose: Integrated Dose-Length Product (DLP) for this visit = 1276 mGy*cm CT Dose Reduction Employed: Automated exposure control (AEC) COMPARISON: None. RESULT: Post-operative change: None. Acute change: No evidence of an acute infarct or other acute parenchymal process. Hemorrhage: No evidence of acute intracranial hemorrhage. ECASS hemorrhagic transformation score: Not Applicable Mass Lesion / Mass Effect: There is no evidence of an intracranial mass or extraaxial fluid collection. No significant mass effect. Chronic change: None apparent. Parenchyma: There is no significant volume loss. The brain parenchyma is otherwise within normal limits for age. Ventricles: The ventricles are within normal limits of size and configuration for age. Paranasal sinuses and skull base: The visualized paranasal sinuses are grossly clear. The skull base and imaged soft tissues are unremarkable. Localizer images: No additional findings. IMPRESSION: No evidence of acute intracranial pathology. Construction Grip: KIARRA Transcribe Date/Time: Sep 04 2023 7:30P Dictated by : KAZ HEMPHILL MD This examination was interpreted and the report reviewed and electronically signed by: KAZ HEMPHILL MD on Sep 04 2023 7:32PM EST [id number] [facility] CT CERVICAL SPINE WO IVCONon 09-04-2023 CT CERVICAL SPINE WO IVCON * * *Final Report* * * DATE OF EXAM: Sep 04 2023 5:46PM [facility] 0505 - CT CERVICAL SPINE WO IVCON / PROCEDURE REASON: Spinal stenosis, cervical * * * * Physician Interpretation * * * * EXAMINATION: CT CERVICAL SPINE WO IVCON CLINICAL HISTORY: Headache and neck pain. Recent lumbar puncture. TECHNIQUE: Spiral, high resolution axial unenhanced images were obtained from the skull base to the cervicothoracic junction with sagittal and coronal planar reconstructions. MQ: CTCSPWO_5 CT Radiation dose: Integrated CT Dose-Length Product (DLP) for this visit = 653.89 mGy*cm CT Dose Reduction Employed: Automated exposure control (AEC) COMPARISON: None. RESULT: Counting reference: Craniocervical junction. Anatomic Variants: None. 3Rd Grade Teacher (topogram) images: No additional significant findings Alignment: Alignment is anatomic. Craniocervical junction: Craniocervical junction is normal. Osseous structures/fracture: No evidence of a lytic or blastic process in the visualized spine. No evidence of acute or chronic fracture. Cervical soft tissues: The paraspinal soft tissues are within normal limits. Degenerative changes: No significant degenerative changes. IMPRESSION: No acute abnormality. Anatomic Variant: None. Assume 7 cervical vertebrae with counting from the craniocervical junction. Construction Grip: PSCB Transcribe Date/Time: Sep 04 2023 7:28P Dictated by : EMILY CAMPA MD This examination was interpreted and the report reviewed and electronically signed by: EMILY CAMPA MD on Sep 04 2023 7:32PM EST [id number] [facility] CT LUMBAR SPINE WO IVCONon 0 09-04-2023 CT LUMBAR SPINE WO IVCON * * *Final Report* * * DATE OF EXAM: Sep 04 2023 5:50PM [facility] 0508 - CT LUMBAR SPINE WO IVCON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 will be picking her up. She will be following up with [facility] psychiatry and [facility]. [facility] GROUPNOTEon 07-02-2023 GROUPNOTE Department: [facility] ACTIVITIES THERAPY Group Topic: Art Therapy Group Date: 07/02/2023 Start Time: 1400 End Time: 1530 Facilitators: DAVID Cox Number of Participants: 6 Group Name: Art Therapy: Mindfulness; Zentangle Treatment Modality: Art Therapy, Leisure Development, Psychoeducation, and Skills Training Purpose: enhance coping skills, express feelings, increase insight or knowledge, reinforce self-care, and mindfulness Summary: Facilitated group: Zentangle Art as Healthy coping Mechanism. Therapist facilitated group discussion of art and mindfulness as a healthy coping mechanism using art quote prompts. Therapist educated group on art of Zentangle and facilitated art therapy task: make zentangle art to music. Therapist facilitated proceess of art making eperience and individual lita art. Name: Jazmin Howard Date of : 2000 MR: [id number] Mental Status Exam: Appearance: Appropriately dressed and groomed Mood: Euthymic Affect: Appropriate Behavior: Pleasant, Cooperative, Engaging, and Interactive Alertness: Alert Speech: Appropriate Cognition: Intact Thought Process: Goal-directed Thought Content: No evidence of psychosis/delusions Level/Quality of Participation: active, attentive, cooperative, engaged, and motivated Interactions with others: Sociable and supportive Interventions utilized were Building rapport and engagement, Empathic listening, Psychoeducation, Art therapy, and Expressive therapy Patient's Response to Intervention: Patient appropriately discussed mindfulness and art as a healthy coping mechanism. Patient actively engaged in creating zentangle art to music. Patient appropriately processed art making experience. Patient actively processed individual zentangle art. Patient state she had a fair amount of success not thinking while make zentangle art. Progress Towards Goal(s): Moderate Additional Comments: Group performed a second, brief art therapy activity after processing a need to express anger. Patient scribbled on newsprint paper with markers and then ripping then newsprint paper in pieces. Next Step: Continue with current services Patients Problems: Patient Active Problem List Diagnosis Dysmenorrhea Recurrent depression (HCC) History of renal stone Enlarged pituitary gland (HCC) Status post cholecystectomy Acute non-recurrent frontal sinusitis Anxiety Normal [facility] IDNon 07-02-2023 IDN Problem: Ineffective Coping Goal: Cooperates with admission process Outcome: Progressing Goal: Identifies ineffective coping skills Outcome: Progressing Goal: Identifies healthy coping skills Outcome: Progressing Goal: Demonstrates healthy coping skills Outcome: Progressing Goal: Participates in unit activities Outcome: Progressing Goal: Patient/Family participate in treatment and discharge plans Outcome: Progressing Goal: Patient/Family verbalizes awareness of resources Outcome: Progressing Goal: Understands least restrictive measures Outcome: Progressing Goal: Free from restraint events Outcome: Progressing Normal [facility] Nursing Noteon 07-02-2023 Nursing Note Patient visible in t he day room, socializing, watching TV, and appears to have a bright affect. She denies SI/HI/AVH. She approached this nurse complaining of unbearable anxiety and requesting medication. PRN Klonopin 0.5 mg given at 0932 for c/o anxiety with good results. [facility] Progress Noteon 07-02-2023 Progress Note ACTIVITY THERAPY ASSESSMENT Met with patient for activity therapy assessment. Reviewed diagnosis, presenting complaint, current living situation, cultural/spiritual preferences, education level, vocational status and mental status at time of this assessment. Diagnosis (per chart review): Depressive Disorder Unspecified, GENNY Presenting Problem: anxiety Does the patient identify any cultural/spiritual influences that may impact patient participation with programs offered by the Activities team? No If Yes, describe: Review of Recreation Therapy Involvement/Interests Identify types of leisure activities patient reports doing in their free time? Dog, friends, playing on phone Is patient satisfied with current leisure lifestyle? Yes Leisure Barriers: None reported Review of Music Therapy Involvement/Interests Favorite Band/Artist: [employer] Musical Preferences: country Music Experiences/Skills: none Use of Music: to calm down Level of recent/current engagement in musical activities identified above: Listens often Music Triggers/Adverse reactions: none Review of Other Diversionary Activities/Interests Identify any additional activities/hobbies/events in which patient participates on a regular basis: none Is patient able to identify the wellness benefits of engaging in recreation, music, or other diversionary activities? Yes If Yes, describe: helps me to stay calm If No, is patient willing to consider participating in programming offered by the Activities team to experience the potential wellness benefits? Yes Was Patient provided information on unit programming, including types of activities and program schedule for the unit? Yes Activities Therapy Treatment Plan Goal(s): symptom stabilization Objective(s): attend group and participate wtihout the interference of symptoms Intervention: Pt will be offered 1 music therapy or recreation therapy group daily and 2 diversionary milieu groups. Signature Carly Koroma, JORGE-BC [facility] Progress Note Pt calm and cooperat tiara. Denies SI/HI. Denies voices or hallucinations. Found out in the dayroom watching television and socializing with other female patients. Denies pain, no distress. Denies needs. Out for HS snacks. Declined HS seroquel, stated she didn't like the side effects (lethargic, head fog ). Accepted HS lamictal. Insufficient lab draw amount, lab re-added for BMP. Could not get on 2nd attempt. Left msg for non-rapid for lab draw. Normal [facility] Behavioral Health Treatment Planon 07-01-2023 Behavioral Health Treatment Plan SI- plan to overdose of bottle of pills . Normal [facility] 07-01-2023 [facility] Behavioral Health Psycho-Social Assessment (Social Work) Date: 07/01/2023 Patient Name: Jazmin Howard : 2000 Identifying Information: Patient is a 22 yr s/w/f presenting to ED with SI and anxiety. Presenting Problem: Patient present to ED with SI and anxiety. Describes ongoing panic worsening over past week, so staed she went to crack her neck and had a panic attack. Psychiatric History: Pt denies any previous inpt admits or suicide attempts. Pt does see prescriber at [facility] Has counselor at [facility] in [place]. Substance Abuse/Use: denies Medical/Self-care Issues: none noted Legal/Trauma/ History: denies current legal issues Trauma hx: none reported Never served in Family Constellation/Childhood History: Pt grew up in [place] with both parents and one older sister. She never and has no children. Pt is living in [place] with her parents, reports her and her sister are not close. 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 Cultural/Spirituality/Leis ure: no mu-ism affiliation noted Support Systems/Collateral Information: mother: Roxanne howard [phone] C-SSRS Actual Attempt (Past 3 Months): No Actual Attempt (Lifetime): No Interrupted Attempts (Past 3 Months): No Interrupted Attempts (Lifetime): No Aborted or Self-Interrupted Attempt (Past 3 Months): No Aborted or Self-Interrupted Attempt (Lifetime): No Preparatory Acts or Behavior (Past 3 Months): No Preparatory Acts or Behavior (Lifetime): No Has subject engaged in non-suicidal self-injurious behavior? (Past 3 Months): No Has subject engaged in non-suicidal self-injurious behavior? (Lifetime): No Suicidal Ideation: Suicidal thoughts Activating Events (Recent): Recent loss(es) or other significant negative event(s) (legal, financial, relationship, etc.) Describe:: Pt relates having anxiety all thetime,the last 7 days it has worsened finding her feeling panicked. Pt does not reports any major stressors Treatment History: Previous psychiatric diagnoses and treatments (Pt denies any previous inpt admits or suicide attempts. Pt is a clientat [facility] services) Other Risk Factors: Pt has been in counseling for 5 years, could benefit from dbt groups Clinical Status (Recent): Agitation or severe anxiety Protective Factors (Recent): Identifies reasons for living, Belief that suicide is immoral/high spirituality, Responsibility to family or others and/or living with family, Supportive social network or family Plan: stabilize pt psychiatrically Schedule pt with current outpt providers Pt signed in voluntarily with sw today Comment: Please note this report has been produced using speech recognition software and may contain errors related to that system including errors in grammar, punctuation, and spelling, as well as words and phrases that may be inappropriate. If there are any questions or concerns please feel free to contact the dictating provider for clarification. [facility] Consulton 07-01-2023 Consult [facility] Medicine Co nsult Patient - Jazmin Howard, Age - 22 y.o. - 2000 Room Number - S6-114/S6-114 A Consulting - Chencho Leary DO Primary Care Physician - Igles[facility] Polk [id number] Date of Admission - 06/30/2023 10:17 AM Hospital Day - 1 Reason for Consult: Medical Management HISTORY OF PRESENT ILLNESS: Jazmin is a 22 y.o. female pmhx below. I reviewed the chart and discussed with RN. Per chart review, patient presented to [facility] ED for worsening anxiety and depression leading to intermittent panic attacks. Patient was medically worked up consisting of EKG, CBC, CMP, UA, UDS, Covid. EKG showed sinus rhythm no ST-T wave changes. Labs notable for hypokalemia and was repleted with one time dose 20 mEq Klor-con. Patient was deemed medically cleared for admission to [facility] for further psychiatric evaluation. [facility] consulted for medical management Patient was seen and evaluated at bedside this morning. Patient found lying in bed appearing to be sleeping, however she easily aroused to her name. Patient is calm and cooperative with my assessment. She reports poor appetite secondary to anxiety, but endorsed eating little bit for breakfast. I discussed labs results with her and she is opting to watch her diet and follow up with medical provider as outpatient. Patient encouraged healthy lifestyle modifications. No other medical complaint at this time. She denies sob, cp, palpitations, abdominal discomfort, urinary sx, n/v/d/c fever or chills. 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 Powell to repeat MRI Recurrent depression ([facility]) 2018 Dr. 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 Blanton LAP,CHOLECYSTECTOMY (HISTORICAL) 04/2022 SINUS SURGERY 03/2019 TONSILLECTOMY (HISTORICAL) 05/2018 Ai UPPER GASTROINTESTINAL ENDOSCOPY 08/[address] Wesley UPPER GASTROINTESTINAL ENDOSCOPY [address] Lundberg Medications: lamoTRIgine, 100 mg, Oral, Daily lamoTRIgine, 25 mg, Oral, Nightly pantoprazole, 40 mg, Oral, qAM AC QUEtiapine, 12.5 mg, Oral, Nightly sertraline, 37.5 mg, Oral, Daily PRN medications: acetaminophen OR acetaminophen, benztropine, diphenhydrAMINE AND haloperidol AND LORazepam, diphenhydrAMINE AND haloperidol lactate AND LORazepam, ondansetron ODT OR ondansetron, polyethylene glycol (PEG) 3350, propranolol, QUEtiapine Allergies: Lactose, Milk-related compounds, and Tape Social History: Social History Socioeconomic History Marital status: Single Spouse name: Not on file Number of children: Not on file Years of education: Not on file Highest education level: Not on file Occupational History Not on file Tobacco Use Smoking status: Never Smokeless tobacco: Never Substance and Sexual Activity Alcohol use: No Alcohol/week: 0.0 standard drinks of alcohol Drug use: Never Sexual activity: Not on file Other Topics Concern Not on file Social History Narrative [employer] Education major NS or ETOH. 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 Now presently studying for an [employer] and hopes to get into sports management. No significant other at this time. Social Determinants of Health Financial Resource Strain: Low Risk (06/30/2023) Overall Financial Resource Strain (CARDIA) Difficulty of Paying Living Expenses: Not very hard Food Insecurity: No Food Insecurity (06/30/2023) Hunger Vital Sign Worried About Running Out of Food in the Last Year: Never true Ran Out of Food in the Last Year: Never true Transportation Needs: No Transportation Needs (06/30/2023) PRAPARE - Transportation Lack of Transportation (Medical): No Lack of Transportation (Non-Medical): No Physical Activity: Inactive (06/30/2023) Exercise Vital Sign Days of Exercise per Week: 0 days Minutes of Exercise per Session: 0 min Stress: Stress Concern Present (06/30/2023) [employer] Occupational Health - Occupational Stress Questionnaire Feeling of Stress : Rather much Social Connections: Unknown (06/30/2023) Social Connection and Isolation Panel [NHANES] Frequency of Communication with Friends and Family: More than three times a week Frequency of Social Gatherings with Friends and Family: More than three times a week Attends Islam Services: Patient declined Active Member of Clubs or Organizations: Patient declined Attends Club or Organization Meetings: Patient declined (more content not included)... Normal [facility] Nursing Noteon 07-01-2023 Nursing Note Patient withdrawn to her room in the morning and appeared flat and depressed. Throughout the shift she gradually became more social and affect brightened. Denies SI/HI/AVH. She still reports some anxiety but states its tolerable. Compliant with scheduled meds, no PRNs given. Normal [facility] Progress Noteon 07-01-2023 Progress Note Nutrition Assessment Type and Reason for Visit: Initial, Positive Nutrition Screen Nutrition Recommendations/Plan: Will notify nurse re: pt. Does not have milk related allergy. Pt. Does not want food restrictions. Will assign level 1 referring to renal dietitian to monitor. Malnutrition Assessment: Malnutrition Status: No malnutrition Nutrition Assessment: Per chart: lives w/mom, self manipulted neck, poor appetite, 3-4 meals over last 7 days, poor sleep, not wanting to go to work; 06/30 states she's been eating good. Per pt.: can tolerate some lactose, does not want diet restricted I like my cheese! , good appetite, had gallbladder out last few months, when felt good really overate, feeling this caused weight gain Estimated Daily Nutrient Needs: Energy Requirements Based On: Kcal/kg Weight Used for Energy Requirements: [place] Weight for Energy Calculation (kg): 59 kg Total Energy Requirements (kcals/day): 1575 - 1770 kcals Weight Used for Protein Requirements: [place] Weight in Kg Used for Protein Requirements: 59 kg Estimated Total Protein (g/day): 47 - 59 gms protein Estimated Daily Total Fluid (ml/day): 1575 - 1770 mls Nutrition Related Findings: 1 week of eating poorly MUSICIAN INSTRUMENTAL Wound Type: None Current Nutrition Therapies: Adult diet Regular Current Oral Intake Average Meal Intake: 76-100% Average Supplements Intake: None Ordered Anthropometric Measures: Height: 167.6 cm (5' 6 ) Current Body Weight: 118 kg (260 lb) Weight Source: Not Specified Admission Body Weight: 118 kg (260 lb) Usual Body Weight: 115 kg (254 lb) ([facility] 01/01/23) % Weight Change (Calculated): 2.4 [place] Body Weight (lbs) (Calculated): 130 lbs [place] Body Weight (Kg) (Calculated): 59 kg % [place] Body Weight (Calculated): 200 % BMI (kg/m2) (Calculated): 42 Weight Adjustment For: No Adjustment BMI Categories: Obese Class 3 (BMI 40.0 or greater) Nutrition Diagnosis: In context of social or environmental circumstances, Altered nutrition-related lab values, Overweight/Obese (06/30 K+ 3.4, C02 20, low) related to psychological cause or life stress as evidenced by other (comment), BMI, lab values (est. 2% wt. increase over 6 months) Nutrition Interventions: Nutrition Education/Counseling: Counseling initiated -> educated on K+ function in body and sources in diet, she mentioned getting K+ yesterday Coordination of Nutrition Care: Continue to monitor while inpatient, Coordination of Care Plan of Care discussed with: pt. Goals: Goals: PO intake 75% or greater Nutrition Monitoring and Evaluation: Behavioral-Environmental Outcomes: None Identified Food/Nutrient Intake Outcomes: Food and Nutrient Intake Physical Signs/Symptoms Outcomes: Biochemical Data, Fluid Status or Edema, Hemodynamic Status, Meal Time Behavior, GI Status, Nutrition Focused Physical Findings, Skin, Weight Discharge Planning: Assist with food insecurity, Continue current diet Katy Heath RD Contact: via Len[employer] chat or office *[phone] [facility] 36on 06-30-2023 36 S: Patient's mother spoke with [facility] nurse regarding patient's severe anxiety. B: Onset of symptoms/concern: Acute on chronic issue. A: Patient has been having anxiety starting about a week ago, getting worse. Started seeing a new psychiatrist and has talked to her therapist at least 4 times in the past week. 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 The anxiety has been affecting her appetite and sleep, crying a lot. Has had anxiety attacks in the past, but never this bad or for this long. Patient is depression because she isn't feeling right. Psychiatrist does not she has a diagnosis of depression, but more of bipolar disorder with anxiety. Patient has stated that she doesn't want to live feeling like this if there is no relief in sight. No major life incident that triggered this episode. She has been on Lamictal and Zoloft. Patient wants to go to the hospital. Mother asking which hospital they should go to. R: Advised mother to take patient to [facility] ER because of [facility] availability. Mother understands care advice. No further needs at this time. Mom instructed to call back with new or worsening symptoms. Reason for Disposition SEVERE anxiety (e.g., extremely anxious with intense emotional symptoms such as feeling of unreality, urge to flee, unable to calm down; unable to cope or function), which is not better after 10 minutes of reassurance and Care Advice Protocols used: Anxiety and Panic [id number] [facility] CBC WITH AUTO DIFFERENTIALon 06-30-2023 Basophils (Bld) [#/Vol] 0.0 10*3/uL Normal 0.0-0.2 [facility] Comment on above: Performed By: #### L [id number] #### Clinical Rehabilitation Liaison: CHRIS GOLDSTEIN ([phone]) [facility] ([facility]) [address] [place] [address] Basophils/100 WBC (Bld) 0.1 % Normal 0.0-2.0 [facility] Comment on above: Performed By: #### L [id number] #### Clinical Rehabilitation Liaison: CHRIS GOLDSTEIN ([id number]) [facility]) [address] [place] [address] Eosinophils (Bld) [#/Vol] 0.0 10*3/uL Normal 0.0-0.5 [facility] Comment on above: Performed By: #### L [id number] #### Clinical Rehabilitation Liaison: CHRIS GOLDSTEIN ([id number]) [facility]) [address] [place] [address] Eosinophils/100 WBC (Bld) 0.3 % Normal 0.0-6.0 [facility] Comment on above: Performed By: #### L [id number] #### Clinical Rehabilitation Liaison: CHRIS GOLDSTEIN ([id number]) [facility] ([facility]) [address] [place] [address] Erythrocyte distribution width (RBC) [Ratio] 14.6 % Normal 11.5-15.0 [facility] Comment on above: Performed By: #### L [id number] #### Clinical Rehabilitation Liaison: CHRIS GOLDSTEIN ([id number]) [facility]) [address] [place] [address] Hematocrit (Bld) [Volume fraction] 39.5 % Normal 35.0-47.0 [facility] Comment on above: Performed By: #### L [id number] #### Clinical Rehabilitation Liaison: CHRIS GOLDSTEIN ([phone]) [facility]) [address] [place] [address] Hemoglobin (Bld) [Mass/Vol] 12.6 g/dL Normal 11.7-16.0 [facility] Comment on above: Performed By: #### L [id number] #### Clinical Rehabilitation Liaison: CHRIS [phone]) [facility]) [address] [place] [address] IMMATURE GRANS % 0.2 % Normal 0.0-2.0 [facility] Comment on above: Performed By: #### L [id number] #### Clinical Rehabilitation Liaison: CHRIS GOLDSTEIN ([id number]) [facility]) [address] [place] [address] IMMATURE GRANS ABSOLUTE 0.0 10*3/uL Normal <0.1 [facility] Comment on above: Performed By: #### L [id number] #### Clinical Rehabilitation Liaison: CHRIS GOLDSTEIN ([id number]) [facility]) [address] [place] [address] Lymphocytes (Bld) [#/Vol] 2.2 10*3/uL Normal 1.0-4.3 [facility] Comment on above: Performed By: #### L [id number] #### Clinical Rehabilitation Liaison: CHRIS GOLDSTEIN ([id number]) [facility]) [address] [place] [address] Lymphocytes/100 WBC (Bld) 22.0 % Normal 15.0-45.0 [facility] Comment on above: Performed By: #### L [id number] #### Clinical Rehabilitation Liaison: CHRIS GOLDSTEIN ([id number]) [facility]) [address] [place] [address] MCH (RBC) [Entitic mass] 25.7 pg Low 26.0-34.0 [facility] Comment on above: Performed By: #### L [id number] #### Clinical Rehabilitation Liaison: CHRIS GOLDSTEIN ([id number]) [facility]) [address] [place] [address] MCHC 31.9 % Normal 30.5-36.0 [facility] Comment on above: Performed By: #### L [id number] #### Clinical Rehabilitation Liaison: CHRIS GOLDSTEIN ([id number]) [facility]) [address] [place] [address] MCV (RBC) [Entitic vol] 80.4 fL Normal 77.0-99.0 [facility] Comment on above: Performed By: #### L [id number] #### Clinical Rehabilitation Liaison: CHRIS GOLDSTEIN ([id number]) [facility] ([facility]) [address] [place] [address] Monocytes (Bld) [#/Vol] 0.7 10*3/uL Normal 0.0-0.9 [facility] Comment on above: Performed By: #### L [id number] #### Clinical Rehabilitation Liaison: CHRIS GOLDSTEIN ([id number]) [facility] ([facility]) [address] [place] [address] Monocytes/100 WBC (Bld) 6.6 % Normal 5.0-13.0 [facility] Comment on above: Performed By: #### L [id number] #### Clinical Rehabilitation Liaison: CHRIS GOLDSTEIN ([id number]) [facility] ([facility]) [address] [place] [address] NEUTROPHILS ABSOLUTE 7.1 10*3/uL Normal 1.8-7.5 [facility] Comment on above: Performed By: #### L [id number] #### Clinical Rehabilitation Liaison: CHRIS GOLDSTEIN ([phone]) [facility] ([facility]) [address] [place] [address] Neutrophils/100 WBC (Bld) 70.8 % Normal 38.0-82.0 [facility] Comment on above: Performed By: #### L [id number] #### Clinical Rehabilitation Liaison: CHRIS GOLDSTEIN ([id number]) [facility] ([facility]) [address] [place] [address] NRBC 0.0 /100 WBCs Normal 0.0-2.0 [facility] Comment on above: Performed By: #### L [id number] #### Clinical Rehabilitation Liaison: CHRIS GOLDSTEIN ([id number]) [facility] ([facility]) [address] [place] [address] Platelet mean volume (Bld) [Entitic vol] 9.3 fL Normal 9.0-12.7 [facility] Comment on above: Performed By: #### L [id number] #### Clinical Rehabilitation Liaison: CHRIS GOLDSTEIN ([id number]) [facility]) [address] [place] [address] Platelets (Bld) [#/Vol] 304 10*3/uL Normal 140-440 [facility] Comment on above: Performed By: #### L [id number] #### Clinical Rehabilitation Liaison: CHRIS GOLDSTEIN ([id number]) [facility] ([facility]) [address] [place] [address] RBC (Bld) [#/Vol] 4.91 10*6/uL Normal 3.80-5.20 [facility] Comment on above: Performed By: #### L [id number] #### Clinical Rehabilitation Liaison: CHRIS GOLDSTEIN ([id number]) [facility] ([facility]) [address] [place] [address] WBC (Bld) [#/Vol] 10.0 10*3/uL Normal 3.6-10.7 [facility] Comment on above: Performed By: #### L [id number] #### Clinical Rehabilitation Liaison: CHRIS GOLDSTEIN ([id number]) [facility] ([facility]) [address] [place] [address] COMPLETE URINALYSISon 2023 BACTERIA (#/HPF) IN URINE Few Abnormal Negative [facility] Comment on above: Performed By: #### L [id number] ####Clinical Rehabilitation Liaison: CHRIS GOLDSTEIN ([phone])[facility])[address] [place] [address] BILIRUBIN, TOTAL PRESENCE IN URINE Negative Normal Negative [facility] Comment on above: Performed By: #### L [id number] ####Clinical Rehabilitation Liaison: CHRIS GOLDSTEIN ([id number])[facility] ([facility])[address] [place] [address] Clarity (U) Turbid Abnormal Clear [facility] Comment on above: Performed By: #### L [id number] ####Clinical Rehabilitation Liaison: CHRIS GOLDSTEIN ([id number])[facility] ([facility])[address] [place] [address] Color (U) Yellow Normal Lt. Yellow [facility] Comment on above: Performed By: #### L [id number] ####Clinical Rehabilitation Liaison: CHRIS GOLDSTEIN ([id number])[facility] ([facility])[address] [place] [address] GLUCOSE (MG/DL) IN URINE Normal Normal Normal (<70) [facility] Comment on above: Performed By: #### L [id number] ####Clinical Rehabilitation Liaison: CHRIS GOLDSTEIN ([id number])[facility] ([facility])[address] [place] [address] HEMOGLOBIN PRESENCE IN URINE Negative Normal Negative [facility] Comment on above: Performed By: #### L [id number] ####Clinical Rehabilitation Liaison: CHRIS GOLDSTEIN ([id number])[facility] ([facility])[address] [place] [address] HYALINE CASTS (#/LPF) IN URINE SEDIMENT BY MICROSCOPY Negative Normal Negative [facility] Comment on above: Performed By: #### L [id number] ####Clinical Rehabilitation Liaison: CHRIS GOLDSTEIN ([id number])[facility] ([facility])[address] [place] [address] Ketones Ql (U) Negative Normal Negative [facility] Comment on above: Performed By: #### L [id number] ####Clinical Rehabilitation Liaison: CHRIS GOLDSTEIN ([id number])[facility] ([facility])[address] [place] [address] LEUKOCYTE ESTERASE PRESENCE IN URINE BY TEST STRIP Negative Normal Negative [facility] Comment on above: Performed By: #### L [id number] ####Clinical Rehabilitation Liaison: CHRIS GOLDSTEIN ([id number])[facility] ([facility])[address] [place] [address] [place] MUCUS (#/LPF) IN URINE SEDIMENT Few Normal Negative [facility] Comment on above: Performed By: #### L [id number] ####Clinical Rehabilitation Liaison: CHRIS GOLDSTEIN ([phone])[facility] ([facility])[address] [place] [address] [place] NITRITE PRESENCE IN URINE Negative Normal Negative [facility] Comment on above: Performed By: #### L [id number] ####Clinical Rehabilitation Liaison: CHRIS GOLDSTEIN ([phone])[facility] ([facility])[address] [place] [address] pH (U) 5.0 [pH] Normal 5.0-8.0 [facility] Comment on above: Performed By: #### L [id number] ####Clinical Rehabilitation Liaison: CHRIS GOLDSTEIN ([phone])[facility])[address] [place] [address] Protein (U) [Mass/Vol] 20 mg/dL Abnormal Negative [facility] Comment on above: Performed By: #### L [id number] ####Clinical Rehabilitation Liaison: CHRIS GOLDSTEIN ([id number])[facility])[address] [place] [address] RBC (#/HPF) IN URINE SEDIMENT 0-2 Normal 0-2 [facility] Comment on above: Performed By: #### L [id number] ####Clinical Rehabilitation Liaison: CHRIS GOLDSTEIN ([phone])[facility])[address] [place] [address] Specific gravity (U) [Rel density] 1.032 High 1.005-1.030 [facility] Comment on above: Performed By: #### L [id number] ####Clinical Rehabilitation Liaison: CHRIS GOLDSTEIN ([phone])[facility])[address] [place] [address] SQUAMOUS EPITHELIAL CELLS (#/HPF) IN URINE SEDIMENT 0-2 Normal 3-5 [facility] Comment on above: Performed By: #### L [id number] ####Clinical Rehabilitation Liaison: CHRIS GOLDSTEIN ([id number])[facility])[address] [place] [address] UROBILINOGEN (MG/DL) IN URINE Normal Normal Normal (0-1) [facility] Comment on above: Performed By: #### L [id number] ####Clinical Rehabilitation Liaison: CHRIS GOLDSTEIN ([id number])[facility])[address] [place] [address] WBC (LEUKOCYTE) (#/HPF) IN URINE SEDIMENT 0-2 Normal 0-5 [facility] Comment on above: Performed By: #### L [id number] ####Clinical Rehabilitation Liaison: CHRIS GOLDSTEIN ([id number])[facility] ([facility])[address] [place] [address] COMPREHENSIVE METABOLIC PANE Gavin 06-30-2023 Albumin [Mass/Vol] 4.5 g/dL Normal 3.5-5.0 [facility] Comment on above: Performed By: #### L AB17, LAB18, LAB46, [id number] ####Clinical Rehabilitation Liaison: CHRIS GOLDSTEIN ([id number])[facility] ([facility])[address] [place] [address] ALP [Catalytic activity/Vol] 82 U/L Normal 38-126 [facility] Comment on above: Performed By: #### L AB17, LAB18, LAB46, [id number] ####Clinical Rehabilitation Liaison: CHRIS GOLDSTEIN ([id number])[facility] ([facility])[address] [place] [address] ALT [Catalytic activity/Vol] 23 U/L Normal 0-34 [facility] Comment on above: Performed By: #### L AB17, LAB18, LAB46, [id number] ####Clinical Rehabilitation Liaison: CHRIS GOLDSTEIN ([id number])[facility] ([facility])[address] [place] [address] Anion gap [Moles/Vol] 11 mmol/L Normal 3-13 [facility] Comment on above: Performed By: #### L AB17, LAB18, LAB46, [id number] ####Clinical Rehabilitation Liaison: CHRIS GOLDSTEIN ([id number])[facility] ([facility])[address] [place] [address] [place] AST [Catalytic activity/Vol] 26 U/L Normal 15-46 [facility] Comment on above: Performed By: #### L AB17, LAB18, LAB46, [id number] ####Clinical Rehabilitation Liaison: CHRIS GOLDSTEIN ([id number])[facility] ([facility])[address] [place] [address] [place] Bilirubin [Mass/Vol] 0.6 mg/dL Normal 0.2-1.3 [facility] Comment on above: Performed By: #### L AB17, LAB18, LAB46, [id number] ####Clinical Rehabilitation Liaison: CHRIS GOLDSTEIN ([id number])[facility] ([facility])[address] [place] [address] Calcium [Mass/Vol] 9.3 mg/dL Normal 8.4-10.4 [facility] Comment on above: Performed By: #### L AB17, LAB18, LAB46, [id number] ####Clinical Rehabilitation Liaison: CHRIS GOLDSTEIN ([id number])[facility] ([facility])[address] [place] [address] Chloride [Moles/Vol] 107 mmol/L Normal 98-107 [facility] Comment on above: Performed By: #### L AB17, LAB18, LAB46, [id number] ####Clinical Rehabilitation Liaison: CHRIS GOLDSTEIN ([id number])[facility] ([facility])[address] [place] [address] CO2 [Moles/Vol] 20 mmol/L Low 22-30 [facility] Comment on above: Performed By: #### L AB17, LAB18, LAB46, [id number] ####Clinical Rehabilitation Liaison: CHRIS GOLDSTEIN ([id number])[facility] ([facility])[address] [place] [address] Creatinine [Mass/Vol] 0.97 mg/dL Normal 0.52-1.04 [facility] Comment on above: Performed By: #### L AB17, LAB18, LAB46, [id number] ####Clinical Rehabilitation Liaison: CHRIS OGLDSTEIN ([phone])[facility])[address] [place] [address] [place] GLOMERULAR FILTRATION RATE ML/MIN/1.73 SQ M.PREDICTED 84.4 mL/min/1.73m*2 Normal >60.0 [facility] Comment on above: Result Comment: Calc ulation based on the Chronic Kidney Disease Epidemiology Collaboration (CKD-EPI) equation refit without adjustment for race Performed By: #### L AB17, LAB18, LAB46, [id number] ####Clinical Rehabilitation Liaison: CHRIS GOLDSTEIN ([id number])[facility] ([facility])[address] [place] [address] Glucose [Mass/Vol] 99 mg/dL Normal 70-100 [facility] Comment on above: Performed By: #### L AB17, LAB18, LAB46, [id number] ####Clinical Rehabilitation Liaison: CHRIS GOLDSTEIN ([id number])[facility] ([facility])[address] [place] [address] Potassium [Moles/Vol] 3.4 mmol/L Low 3.5-5.1 [facility] Comment on above: Performed By: #### L AB17, LAB18, LAB46, [id number] ####Clinical Rehabilitation Liaison: CHRIS GOLDSTEIN ([id number])[facility])[address] [place] [address] Protein [Mass/Vol] 8.2 g/dL Normal 6.3-8.2 [facility] Comment on above: Performed By: #### L AB17, LAB18, LAB46, [id number] ####Clinical Rehabilitation Liaison: CHRIS GOLDSTEIN ([id number])[facility] ([facility])[address] [place] [address] Sodium [Moles/Vol] 138 mmol/L Normal 135-145 [facility] Comment on above: Performed By: #### L AB17, LAB18, LAB46, [id number] ####Clinical Rehabilitation Liaison: CHRIS GOLDSTEIN ([id number])[facility])[address] [place] [address] Urea nitrogen [Mass/Vol] 17 mg/dL Normal 7-17 [facility] Comment on above: Performed By: #### L AB17, LAB18, LAB46, [id number] ####Clinical Rehabilitation Liaison: CHRIS GOLDSTEIN ([id number])[facility])[address] [place] [address] DRUGS OF ABUSEon 06-30-2023 AMPHETAMINE SCREEN Negative Normal [facility] Comment on above: Performed By: #### L [id number] ####Clinical Rehabilitation Liaison: CHRIS GOLDSTEIN ([id number])[facility] ([facility])[address] [place] [address] BARBITURATES SCREEN Negative Normal [facility] Comment on above: Performed By: #### L [id number] ####Clinical Rehabilitation Liaison: CHRIS GOLDSTEIN ([id number])[facility] ([facility])[address] [place] [address] BENZODIAZEPINE SCREEN Negative Normal [facility] Comment on above: Performed By: #### L [id number] ####Clinical Rehabilitation Liaison: CHRIS GOLDSTEIN ([id number])[facility] [place] [address] COCAINE METAB. SCREEN Negative Normal [facility] Comment on above: Performed By: #### L [id number] ####Clinical Rehabilitation Liaison: CHRIS GOLDSTEIN ([id number])[facility] ([facility])[address] [place] [address] METHADONE SCREEN Negative Normal [facility] Comment on above: Performed By: #### L [id number] ####Clinical Rehabilitation Liaison: CHRIS GOLDSTEIN ([id number])[facility] ([facility])[address] [place] [address] OPIATES SCREEN Negative Normal [facility] Comment on above: Performed By: #### L [id number] ####Clinical Rehabilitation Liaison: CHRIS GOLDSTEIN ([id number])[facility] ([facility])[address] [place] [address] OXYCODONE SCREEN Negative Normal [facility] Comment on above: Performed By: #### L [id number] ####Clinical Rehabilitation Liaison: CHRIS GOLDSTEIN ([id number])[facility] [place] [address] PHENCYCLIDINE SCREEN Negative Normal [facility] Comment on above: Result Comment: QUAN R COMMENTS: The expected value for all of the drugs listed above is Negative. The following drugs or drug groups have been screened for by Immunoassay at the following thresholds: Amphetamine class (1000 ng/mL) Barbiturates (200 ng/mL) Benzodiazepines (200 ng/mL) Cocaine (300 ng/mL) Methadone (300 ng/mL) Opiates (300 ng/mL) Oxycodone (100 ng/mL) PCP (25 ng/mL) NOTE: These results are for medical treatment only. Analysis performed using non-forensic procedures. POSITIVE results are NOT confirmed by a more specific alternative method unless requested. If confirmation is needed, request confirmation under separate order. Performed By: #### L [id number] ####Clinical Rehabilitation Liaison: CHRIS GOLDSTEIN ([id number])[facility] ([facility])[address] [place] [address] ECG 12-LEADon 06-30-2023 ECG 12-LEAD IMPRESSION: Sinus rhythm Low voltage, precordial leads Electronically Signed On 06-30-2023 19:53:01 EST by Jeremy Michaels [facility] ED Nursing Noteon 06-30-2023 ED Nursing Note Pt is leaving. Amy Casanova 06/30/23 1609 [facility] ED Nursing Note Protective Services x1/Transportation Dept at the pt's beside with a wheel to transport the pt. Amy Casanova 06/30/23 1608 [facility] ED Nursing Note Assisted the pt to t he bathroom. Amy Casanova 06/30/23 1603 [facility] ED Nursing Note Protective Services X 1 is in the room talking with the pt and the visitor. Amy Casanova 06/30/23 1556 [facility] ED Nursing Note The pt's visitor at the window requesting the pt want's to go to the bathroom. Pt offered a bedpan because the bathroom is unavailable. The pt said she would wait. Amy Casanova 06/30/23 1552 [facility] ED Nursing Note Transportation Dept has arrived to transport the pt. Amy Casanova 06/30/23 1553 [facility] ED Nursing Note Telephone made avail able to pt. Melody Remy 06/30/23 1440 [facility] ED Nursing Note Pt to bathroom with RN. Melody Remy 06/30/23 1421 [facility] ED Nursing Note RN at bed side medic ating. Melody Remy 06/30/23 1408 Normal [facility] ED Nursing Note Pt to bathroom with RN. Melody Remy 06/30/23 1400 Normal [facility] ED Nursing Note lockstitch waistband setter, Crystal at bed side. Melody Remy 06/30/23 1359 Normal [facility] ED Nursing Note Meal tray ordered fo r patient. Aissatou Bautista RN 06/30/23 1331 Normal [facility] ED Nursing Note ENVIRONMENTAL ENGINEERING INTERN Crystal at the pt 's bedside. Visitor waiting in the [facility] hallway. Amy Casanova 06/30/23 1302 Amy Casanova 06/30/23 1329 [facility] ED Nursing Note EKG Dept at the pt's bedside. Amy Casanova 06/30/23 1239 [facility] ED Nursing Note Nursing staff Fatoumata plummer lked the pt's visitor to the pt's room. Amy Casanova 06/30/23 1205 Normal [facility] ED Nursing Note Report to FRANCESCO Clark. Aissatou Bautista RN 06/30/23 1202 [facility] ED Nursing Note Physician at the pt' s bedside. Amy Casanova 06/30/23 1145 [facility] ED Nursing Note Pt provided warm roxanne nkets for comfort. Aissatou Bautista RN 06/30/23 1130 [facility] ED Nursing Note Pt ambulated to rest room. Even and steady gait observed. Pt tolerated well. Aissatou Bautista RN 06/30/23 1122 [facility] ED Nursing Note DR.C. Cooper . Vianney Ferrell 06/30/23 1044 [facility] ED Nursing Note Pt in room 47 [facility] tive services standing by.pt changed into hospital gown and sock inventoried zip tied lock in cabin. ptHas 1 bag of belonging skin assessment completed.pt wanded clear for unit. Vianney Ferrell 06/30/23 1017 Normal [facility] ED Provider Noteon ED Provider Note Emergency Department Encounter [facility] EMERGENCY DEPT Patient: Jazmin Howard : 2000 Date of Evaluation: 06/30/2023 ED Supervising Physician: Sissy Jeronimo DO I personally evaluated Jazmin Howard and made/approved the management plan and take responsibility for the patient management. This will serve as my Supervisory note and shared attestation. I did perform a substantive portion of the visit including all aspects of the Medical Decision Making. I wore appropriate PPE for the entirety of this encounter. In brief, Jazmin Howard is a 22 y.o. that presents to the emergency department for severe anxiety depression and suicidal ideations. Patient has a history of anxiety and depression on medications she feels somewhat help however are not strong enough. She endorses severe increased anxiety with intermittent panic attacks that have led to depression crying insomnia decreased appetite missing work. Patient mostly endorsing passive suicidal ideations however states that overdosing on a bottle of pills has crossed her mind. She denies actual intent to go through with this. She denies HI or hallucinations Focused exam: Vital signs stable afebrile no acute distress, eyes PERRL unremarkable oropharynx, no midline spinous process tenderness step-offs or deformities, normal active range of motion at the neck without pain, mild cervical paraspinal muscle tenderness to palpation, neurovascular intact distally in all 4 extremities, normal ambulation, no focal deficits Brief ED course/MDM: 22-year-old female presented to the ED for anxiety depression suicidal ideation with thoughts of overdosing on pills without intent to harm further detailed above. Exam as above. No deficits concerning for neck injury requiring imaging, more consistent with muscular discomfort, no midline spinous process tenderness no neurodeficits normal range of motion without pain. Medical screening lab work ordered to clear patient for psychiatric evaluation. Will evaluate patient for number of etiologies include but not limited to suicidal ideation, anxiety, depression, electrolyte abnormality. UA not consistent with UTI, UDS negative, hCG negative COVID antigen negative ethanol negative, CMP potassium 3.4 otherwise grossly unremarkable, TSH within normal range CBC without leukocytosis leukopenia or anemia. Patient medically cleared for psychiatric evaluation and treatment. Psychiatry consulted for patient endorsing extreme anxiety and depression suicidal ideation with plan but not intent. Psychiatry was consulted has seen patient recommends admission to [facility] 7. Patient admitted. Diagnostics interpreted by me: I personally discussed the patient's management with other clinicians: Paper Production Engineer psychiatry Dr cole and Mame Gan NP All diagnostic, treatment, and disposition decisions were made by myself in conjunction with the Resident. I also supervised martinez portions of any procedures performed by the Resident. For all further details of the patient's emergency department visit, please see their documentation. (Comment: Please note this report has been produced using speech recognition software and may contain errors related to that system including errors in grammar, punctuation, and spelling, as well as words and phrases that may be inappropriate. If there are any questions or concerns please feel free to contact the dictating provider for clarification.) Sissy Jeronimo, Acute Care [facility] Sissy Jeronimo, DO 06/30/23 1431 Sissy Jeronimo, DO 06/30/23 1433 [facility] ED Provider Note EMERGENCY DEPARTMENT ENCOUNTER Pt Name: Jazmin Howard Birthdate 2000 Date of evaluation: 06/30/2023 ED Provider: Ashley Cooper DO CHIEF COMPLAINT Chief Complaint Patient presents with Suicidal Pt presents to ED for suicidal Ideation. Pt states she has had increased anxiety for 7 days. Pt states it started when she went to crack her neck and she went into a instant fight of flight panic. Pt states taking a bottle of pills has crossed her mind. Pt states she is unable to work and due to the anxiety finds it difficult to breath. PT states It is easier to not be here and not feel it. HISTORY OF PRESENT ILLNESS (Location/Symptom, Timing/Onset, Context/Setting, Quality, Duration, Modifying Factors, Severity) Note limiting factors. I wore appropriate PPE for the entirety of this encounter. HPI Jazmin Howard is a 22 y.o. who presents to the emergency department with worsening anxiety and depression leading to intermittent panic attacks. Patient also endorses SI with a plan to overdose on pills. States that she has no intent on harming herself but has thought about using pills in the past. Denies any HI hallucinations. Nursing Notes were reviewed. Limitations to history: None Outside historians: None REVIEW OF SYSTEMS Review of Systems Pertinent positives and negatives as per HPI. 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 Powell to repeat MRI Recurrent depression ([facility]) 2018 Dr. 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 Blanton LAP,CHOLECYSTECTOMY (HISTORICAL) 04/2022 SINUS SURGERY 03/2019 TONSILLECTOMY (HISTORICAL) 05/2018 Ai UPPER GASTROINTESTINAL ENDOSCOPY 08/[address] Wesley UPPER GASTROINTESTINAL ENDOSCOPY [address] Lundberg CURRENT MEDICATIONS Current Discharge Medication List CONTINUE these medications which have NOT CHANGED Details cholestyramine (Questran) 4 g packet One q am for one week, then increase to one packet BID Qty: 60 packet, Refills: 2 Diclofenac Sodium (Voltaren) 1 % gel Apply 2 g topically 2 times daily. Qty: 150 g, Refills: 1 Associated Diagnoses: Right arm pain esomeprazole (NexIUM) [address] capsule Take 40 mg by mouth daily. !! lamoTRIgine (LaMICtal) 100 MG tablet One q am Qty: 30 tablet, Refills: 3 !! lamoTRIgine (LaMICtal) 25 MG tablet One q PM Qty: 30 tablet, Refills: 3 sertraline (Zoloft) 25 MG tablet Take 1.5 tablets (37.5 mg) by mouth daily. Qty: 45 tablet, Refills: 3 !! - Potential duplicate medications found. Please discuss with provider. ALLERGIES Lactose, Milk-related compounds, and Tape FAMILY HISTORY Family History Problem Relation Name Age of Onset No Known Problems Sister Luana older High Blood Pressure Mother Roxanne Hyperlipidemia Mother Roxanne Colon cancer Father David SOCIAL HISTORY Social History Socioeconomic History Marital status: Single Tobacco Use Smoking status: Never Smokeless tobacco: Never Substance and Sexual Activity Alcohol use: No Alcohol/week: 0.0 standard drinks of alcohol Drug use: Never Social History Narrative [employer] major NS or ETOH. 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 Now presently studying for an [employer] and hopes to get into sports management. No significant other at this time. SCREENINGS PHYSICAL EXAM ED Triage Vitals [06/30/23 1010] Temp Heart Rate Resp BP 36.6 ?C (97.9 ?F) 94 18 (!) 153/95 SpO2 Temp Source Heart Rate Source Patient Position 98 % Temporal Monitor -- BP Location FiO2 (%) -- -- Physical Exam Vitals and nursing note reviewed. Constitutional: General: She is not in acute distress. Appearance: She is well-developed. She is not ill-appearing. HENT: Head: Normocephalic and atraumatic. Eyes: Extraocular Movements: Extraocular movements intact. Conjunctiva/sclera: Conjunctivae normal. Cardiovascular: Rate and Rhythm: Normal rate and regular rhythm. Heart sounds: No murmur heard. Pulmonary: Effort: Pulmonary effort is normal. No respiratory distress. Breath sounds: Normal breath sounds. Abdominal: Palpations: Abdomen is soft. Tenderness: There is no abdominal tenderness. Musculoskeletal: General: No swelling. Normal range of motion. Skin: General: Skin is warm and dry. Capillary Refill: Capillary refill takes less than 2 seconds. Neurological: General: No focal deficit present. Mental Status: She is alert and oriented (more content not included)... Normal [facility] ETHANOLon 06-30-2023 ETHANOL IN SER/PLAS <0.010 Normal 0.000-0.010 [facility] Comment on above: Result Comment: QUAN Ferrara COMMENTS: NOTE: This result is for medical treatment only. Analysis performed using non-forensic procedures. Performed By: #### L AB17, LAB18, LAB46, [id number] ####Clinical Rehabilitation Liaison: CHRIS GOLDSTEIN ([id number])[facility] ([facility])[address] [place] [address] HCG QUALITATIVE URINEon 06-04 Beta HCG ( test) Ql (U) Negative Normal Negative [facility] Comment on above: Result Comment: Thor nielsen note: Very dilute urine specimens, as indicated by a low specific gravity, may not contain data entry representative levels of hCG. If is still suspected, a first morning urine specimen should be collected 48 hours later and tested. ORDER COMMENTS: is the most common reason for HCG in urine, although choriocarcinoma, hydatidiform mole, and certain nontrophoblastic malignancies also result in detectable urinary HCG levels. Sensitivity = 20mIU/mL. Performed By: #### L [id number] ####Clinical Rehabilitation Liaison: CHRIS GOLDSTEIN ([id number])[facility] ([facility])[address] [place] [address] HEMOGLOBIN A1Con 06-30-2023 Glucose [Mass/Vol] 114 mg/dL Normal [facility] Comment on above: Order Comment: If no t done within last 12 months Performed By: #### L [id number] #### Clinical Rehabilitation Liaison: CHRIS GOLDSTEIN ([id number]) [facility] ([facility] [address] [place] [address] HbA1c (Bld) [Mass fraction] 5.6 % Normal <5.7 [facility] Comment on above: Order Comment: If no t done within last 12 months Result Comment: Norm al less than 5.7% Prediabetes 5.7% to 6.4% Diabetes 6.5% or higher --HgbA1C levels may not be accurate in patients who have renal disease, received recent blood transfusions, are anemic, or who have dyshemoglobinemia. Performed By: #### L AB90 #### Clinical Rehabilitation Liaison: CHRIS GOLDSTEIN ([id number]) [facility] [address] [place] [address] IDNon 06-30-2023 IDN Problem: Ineffective Coping Goal: Cooperates with admission process Outcome: Progressing Goal: Identifies ineffective coping skills Outcome: Progressing Goal: Identifies healthy coping skills Outcome: Progressing Goal: Demonstrates healthy coping skills Outcome: Progressing Goal: Participates in unit activities Outcome: Progressing Goal: Patient/Family participate in treatment and discharge plans Outcome: Progressing Goal: Patient/Family verbalizes awareness of resources Outcome: Progressing Goal: Understands least restrictive measures Outcome: Progressing Goal: Free from restraint events Outcome: Progressing Normal [facility] IDN Problem: Ineffective Coping Goal: Cooperates with admission process Outcome: Progressing Goal: Identifies ineffective coping skills Outcome: Progressing Goal: Identifies healthy coping skills Outcome: Progressing Goal: Demonstrates healthy coping skills Outcome: Progressing Goal: Participates in unit activities Outcome: Progressing Goal: Patient/Family participate in treatment and discharge plans Outcome: Progressing Goal: Patient/Family verbalizes awareness of resources Outcome: Progressing Goal: Understands least restrictive measures Outcome: Progressing Goal: Free from restraint events Outcome: Progressing Normal [facility] LIPID PANELon 06-30-2023 Cholesterol [Mass/Vol] 262 mg/dL High <200 [facility] Comment on above: Order Comment: If no t done within last 12 months Performed By: #### L AB17, LAB18, LAB46, [id number] ####Clinical Rehabilitation Liaison: CHRIS GOLDSTEIN ([id number])[facility])[address] [place] [address] Cholesterol in HDL [Mass/Vol] 38 mg/dL Low 40-60 [facility] Comment on above: Order Comment: If no t done within last 12 months Performed By: #### L AB17, LAB18, LAB46, [id number] ####Clinical Rehabilitation Liaison: CHRIS GOLDSTEIN ([id number])[address] Cholesterol.total/Cho lesterol in HDL [Mass ratio] 7 {ratio} Normal [facility] Comment on above: Order Comment: If no t done within last 12 months Result Comment: Ref Range: < 3 Low Risk for CHD 3-6 Mod Risk for CHD > 6 High Risk for CHD Performed By: #### L AB17, LAB18, LAB46, [id number] ####Clinical Rehabilitation Liaison: CHRIS GOLDSTEIN ([id number])[address] LOW DENSITY LIPOPROTEIN 203 mg/dL High 0-<100 [facility] Comment on above: Order Comment: If no t done within last 12 months Performed By: #### L AB17, LAB18, LAB46, [id number] ####Clinical Rehabilitation Liaison: CHRIS GOLDSTEIN ([id number])[facility])[address] [place] [address] Triglyceride [Mass/Vol] 105 mg/dL Normal <150 [facility] Comment on above: Order Comment: If no t done within last 12 months Performed By: #### L AB17, LAB18, LAB46, [id number] ####Clinical Rehabilitation Liaison: CHRIS GOLDSTEIN ([id number])[facility] ([facility])[address] [place] [address] Progress Noteon 06-30-2023 Progress Note Pt was in common are a when approached by RN during assessment. Pt appeared anxious but cooperative during interaction. Pt denies any SI/HI and denies any AH/VH at this time. Pt states she's been eating good . Pt states her sleep hasn't been the best . Pt is med compliant. Pt is encouraged to see staff with any questions or concerns. Plan of care ongoing. No further concerns at this time. Normal [facility] Progress Note Patient arrived to [facility] unit from [facility] via wheelchair with Behavioral Health Dry House Tender and Protective Services escort for safety. Patient arrived to the ED after trying to self manipulate or crack her neck and becoming severely anxious afterwards for approximately seven days. Patient reports that her increased anxiety is causing here to feel increasingly depressed leading to passive SI thoughts, poor sleei-3-4 hrs/night, poor cpxoqwzi-[id number] meals over the last seven days, and not wanting to go to work. Patient reports that she has been compliant with her medications but feels they may not be optimal at this time. Patient denies SI/HI/AVH at the time if this interaction. Patient endorses anxiety and depressive symptoms. Patient reports her mom as a good support system and that she lives with her currently. Patient contracts for safety and agrees to seek out staff for any need or concerns. Patient signed admission paperwork and was oriented to the unit. Patient made aware of patient rights and verbalized understanding. [facility] SARS-COV-2 ANTIGENon 024 SARS-COV-2 ANTIGEN SARS-COV-2 ANTIGEN - BINAX Reference Negative Negative A negative result does not rule out the possibility of SARS-CoV-2 infection. NAAT-based methods should be considered for symptomatic patients presenting greater than seven days after onset of symptoms. Method: Lateral flow immunoassay. Fact sheets for healthcare providers and patients can be found at the following sites: https://www.fda.gov/media/ 004735/download https://www.fda.gov/media/ 707696/download [facility] Comment on above: Performed By: #### L [id number] #### Clinical Rehabilitation Liaison: CHRIS GOLDSTEIN ([id number]) [facility] ([facility]) [address] [place] [address] THYROID STIMULATING HORMONEo n 06-30-2023 THYROID STIMULATING HORMONE 1.526 uIU/mL Normal 0.465-4.680 [facility] Comment on above: Performed By: #### L AB17, LAB18, LAB46, [id number] ####Clinical Rehabilitation Liaison: CHRIS GOLDSTEIN ([id number])[facility] ([facility])[address] [place] [address] 36on 06-20-2023 36 She is going to foll ow with [facility]; they are hoping the Cortisone injection will start to work and are staying off the Mobic. Normal [facility] 36on 06-18-2023 36 S: The mother is sea ling the [facility] About an allergic reaction B: [facility] thinks it may be related to Mobic A: She received a cortisone shot and Mobic for her elbow. Yesterday, she took the Mobic. She had a warm feeling in her face and it was red and blotchy. There was a little on the arms. She was nervous and dyspneic (mild). She thought the dyspnea was anxiety. This was all yesterday. None of the symptoms were emergent or needing immediate medical attention [facility] recommended Benadryl. Last dose of Mobic was yesterday morning. Mom is not with her now but she thinks the symptoms have resolved for the most part today. R: Jazmin has a lot of anxiety; she does not want to take Benadryl. Severe symptoms typically happen within 2 hours of medication; she has not had Mobic for >24 hours and the medication was discontinued. The redness/rash should dissipate with time. Reason for Disposition Mild localized rash Protocols used: Rash or Redness - Hvtdbtzmx-DOPYS-ON Normal [facility] Nerve conduction test with E MGon 05-27-2023 Shelton Laboy DO 05/27/2023 4:58 PM [facility] EMG/NCS report: Patient: Jazmin Howard AGE: 22 y.o. Handedness: Right Gender: Female Referring physician: Isabelle Briceno PA-C Study date: 05/27/23 Reason for referral: Patient presents with paresthesias and pain in the right arm. Patient states that she had right elbow surgery in the past. She does have intermittent weakness in the right arm. EMG/nerve conduction study of the right upper extremity is done to evaluate for mononeuropathy affecting the right upper extremity versus right cervical radiculopathy. Summary: The right median sensory nerve action potential was unremarkable. The right ulnar sensory nerve action potential was unremarkable. The right radial sensory nerve action potential was unremarkable. The right median to ulnar ring finger comparison study was unremarkable. The right median to ulnar palmar comparison mixed nerve action potential was unremarkable. The right median to APB compound muscle action potential was unremarkable. The right ulnar to ADM compound muscle action potential was unremarkable. The right ulnar to FDI compound muscle action potential was unremarkable. Of note there was a Eugene-Lino anastomosis noted on this study. Concentric needle EMG was performed in the right upper extremity. No increased insertional activity, fibrillation potentials, fasciculation potentials or positive sharp waves were seen in any muscle tested. Motor unit action potentials demonstrated normal morphology and firing pattern throughout. Impression: This is a normal study. There is no electrophysiological evidence of a mononeuropathy affecting the right upper extremity on this study. There is no evidence of a right cervical radiculopathy on this study. All normal values/reference values for this study were taken from the AANEM reference values. This dictation was done by using the travayl dictation system. It has been proofread but still may contain unrecognized voice recognition errors. [facility] Office Visiton 05-25-2023 Follow-up visit [id number] Wilfrid Howard 2000 F Date Provider Department Center 05/25/2023 ISABELLE GALINDO [facility] Family History Problem Relation Age of Onset No Known Problems Sister Comments: older High Blood Pressure Mother Hyperlipidemia Mother Colon cancer Father Family Status - Relation Status Age at Sister Alive Mother Alive Father Alive Level of Service:63776 [place] OFFICE/OUTPATIENT ESTABLISHED LOW [facility] 20 MIN Reason for Visit and Comments: Elbow Pain [138613] - Rt elbow pain from an injury when she was 11 years old Normal [facility] PATINSon 05-25-2023 PATI A EMG of your right arm has been ordered for you. Central scheduling should reach out to you within the next several days to schedule this appropriately. If you do not hear from central scheduling within the next several days please do not wait more than 1 week. Reach out to central scheduling to verify that the test has been ordered and to get it scheduled. Their number is [phone]. Normal [facility] Progress Noteon 05-25-2023 Progress Note [facility] [address] [facility] [address] Dept: [phone] Dept Loc: [phone] Visit type: Established Patient Reason for Visit: Elbow Pain (Rt elbow pain from an injury when she was 11 years old) Assessment and Plan 1. Right arm pain - Nerve conduction test with EMG - XR elbow 3+ views right - meloxicam (Mobic) 7.5 MG tablet; Take 1 tablet (7.5 mg) by mouth daily., Starting Wed05/25/2023, Until Wed08/23/2023, Normal - Diclofenac Sodium (Voltaren) 1 % gel; Apply 2 g topically 2 times daily., Starting Wed05/25/2023, Normal -Patient has persistent right arm pain burning sensation paresthesia with generalized weakness in the right hand that has gotten progressively worse. She does report taking Motrin almost every day now at this point time due to the ongoing issues with pain. This is all stemming from a previous fracture and subsequent surgery that was undergone approximately 10 years ago. - Will do trial of daily meloxicam and obtain an EMG to determine signs of possible compression of the neurovascular bundle in the right upper extremity subsequently causing weakness of the right hand. 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 Subjective HPI this is a 22-year-old female with an underlying history of depression who is on Zoloft and Lamictal was just seen by her PCP 2 weeks ago for routine checkup and evaluation returns back to the office today after contacting the [facility] for next appointment for concerns that she is having right elbow pain for the last 4 to 5 weeks. Patient reports history of an elbow fracture in 2011 she states over the last 4 to 5 weeks is been flaring up she rates the pain at a 4-5 out of 10 and movement seems to make it worse. She reports that the entire arm is swollen and that seems to come and go. She reports intermittent numbness and weakness in the arm. Reports that her hand feels tight. 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 And she notes that he have to use Motrin more frequently. Review of Systems Constitutional: Negative for chills and fever. Respiratory: Negative for cough and shortness of breath. Cardiovascular: Negative for chest pain. Gastrointestinal: Negative for abdominal pain, diarrhea, nausea and vomiting. Musculoskeletal: Negative for back pain. Neurological: Positive for weakness and numbness. Negative for dizziness and light-headedness. All other systems reviewed and are negative. Allergies Allergen Reactions Lactose Diarrhea Milk-Related Compounds Other reaction(s): Other (See Comments) BLOATING Tape Other reaction(s): Other (See Comments) BAND AID LEAVES A RED MIKE OR RASH Outpatient Medications Prior to Visit Medication Sig Dispense Refill cholestyramine (Questran) 4 g packet One q am for one week, then increase to one packet BID 60 packet 2 esomeprazole (NexIUM) [address] capsule Take 40 mg by mouth daily. lamoTRIgine (LaMICtal) 100 MG tablet One q am 30 tablet 3 lamoTRIgine (LaMICtal) 25 MG tablet One q PM 30 tablet 3 sertraline (Zoloft) 25 MG tablet Take 1.5 tablets (37.5 mg) by mouth daily. 45 tablet 3 No facility-administered medications prior to visit. 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 Powell to repeat MRI Recurrent depression ([facility]) 2019 Dr. 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 Harvinder ALONSO,CHOLECYSTECTOMY (HISTORICAL) 04/2022 SINUS SURGERY 03/2019 TONSILLECTOMY (HISTORICAL) 05/2018 Ai UPPER GASTROINTESTINAL ENDOSCOPY 08/[address] Wesley UPPER GASTROINTESTINAL ENDOSCOPY [address] Lundberg Family History Problem Relation Name Age of Onset No Known Problems Sister Luana older High Blood Pressure Mother Roxanne Hyperlipidemia Mother Roxanne Colon cancer Father David Objective BP 130/82 (BP Location: Left arm, Patient Position: Sitting, BP Cuff Size: Large adult) Pulse 90 Temp 36.6 ?C (97.8 ?F) (Temporal) Ht 5' 6 (more content not included)... Normal [facility] XR Elbow - right 3 Viewson 0 05-25-2023 No high-grade arthritic changes or acute fracture or dislocation. Report Dictated on Electronically Signed By: Devon Huston MD Electronically Signed Date/Time: 05/25/2023 4:32 PM EST [facility] Patient Name: JAZMIN MCPHERSON : 2000 Exam Date/Time: 05/25/2023 10:52 Procedure: XR ELBOW 3+ VIEWS RIGHT Ordering Provider: BRICENO JAMES Reason For Exam: right elbow pain RIGHT ELBOW CLINICAL INDICATION: Pain AP, lateral, and oblique plain film views of the right elbow were obtained. COMPARISON: Right elbow radiographs on 12/20/2016. FINDINGS: No acute displaced fracture or dislocation. No high-grade productive or erosive arthritic changes are seen. No significant joint effusion. [facility] Devon Huston MD - 05/25/2023 Patient Name: JAZMIN HOWARD : 2000 Exam Date/Time: 05/25/2023 10:52 Procedure: XR ELBOW 3+ VIEWS RIGHT Ordering Provider: BRICENO JAMES Reason For Exam: right elbow pain RIGHT ELBOW CLINICAL INDICATION: Pain AP, lateral, and oblique plain film views of the right elbow were obtained. COMPARISON: Right elbow radiographs on 12/20/2016. FINDINGS: No acute displaced fracture or dislocation. No high-grade productive or erosive arthritic changes are seen. No significant joint effusion. IMPRESSION: No high-grade arthritic changes or acute fracture or dislocation. Report Dictated on Electronically Signed By: Devon Huston MD Electronically Signed Date/Time: 05/25/2023 4:32 PM EST [facility] Radiology Study observation (narrative) [facility] BackTrack XR Elbow - right 3 ViewsOrde red By: Devon Huston on 05-25-2023 [employer] Work Phone: 36on 05-24-2023 36 S: Patient spoke wit h [facility] nurse regarding pt having pain in right elbow B: Onset of symptoms/concern x 4-5 weeks A: Pt reports hx of shattering right elbow in 2011. Pt reports in past 4-5 weeks has been flaring up. Reports elbow swells up when using it. Pt reports pain is dull 4-5/10 but flutuates based on movement. Denies fever. Reports entire arm is swollen. States that it swelled up entire arm but it comes and goes. States happened as well years ago but seen then by ortho. Pt reports weakness and numbness that is intermittent. 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 Reports hand feels tight. Denies new injury to elbow. R: 2nd level triage with who is not concerned for DVT at this time and okay to schedule this week. Pt scheduled 05/25/23 with Isabelle King PA-C. Neg COVID screen. No further needs at this time. Patient instructed to call back with new or worsening symptoms. Reason for Disposition Entire arm is swollen Protocols used: Elbow [id number] Normal [facility] 36on 05-11-2023 36 Orders pended for do ctor signature Normal [facility] Office Visiton 05-11-2023 Follow-up visit [id number] Wilfrid Howard 2000 F Date Provider Department Center 05/11/2023 [id number] POLK [facility] Family History Problem Relation Age of Onset No Known Problems Sister Comments: older High Blood Pressure Mother Hyperlipidemia Mother Colon cancer Father Family Status - Relation Status Age at Sister Alive Mother Alive Father Alive Level of Service:67307 [place] OFFICE/OUTPATIENT ESTABLISHED LOW MDM 20 MIN Reason for Visit and Comments: Follow-up [076818] - Med check Referral [825] - For psych Normal [facility] Progress Noteon 05-11-2023 Progress Note [facility] [address] [facility] [address] Visit type: Established Patient Reason for Visit: Follow-up (Med check) and Referral (For psych/) Assessment / Plan: Jazmin was seen today for follow-up and referral. Diagnoses and all orders for this visit: Recurrent depression (HCC) (Primary) Comments: Improved, continue Zoloft and Lamictal and follow-up with psychiatry referral Status post cholecystectomy Other orders - sertraline (Zoloft) 25 MG tablet; Take 1.5 tablets (37.5 mg) by mouth daily. - lamoTRIgine (LaMICtal) 25 MG tablet; One q PM - lamoTRIgine (LaMICtal) 100 MG tablet; One q am Subjective: Patient ID: Jazmin Howard is a 22 y.o. female. HPI patient presents for refill on Zoloft Lamictal. Have reached out for psychiatry referral. Overall feeling fair. 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 Is enrolled in online classes for RTI. She hopes to get into sports management Review of Systems does not smoke or drink. 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 Presently with her parents. Bowels are little better on Questran. No cardiac or pulmonary concerns. Resolved URI and sinus infection. No new concerns. Sleeping pretty well. Generally pretty upbeat. Allergies Allergen Reactions Lactose Diarrhea Milk-Related Compounds Other reaction(s): Other (See Comments) BLOATING Tape Other reaction(s): Other (See Comments) BAND AID LEAVES A RED MIKE OR RASH Current Outpatient Medications on File Prior to Visit Medication Sig Dispense Refill cholestyramine (Questran) 4 g packet One q am for one week, then increase to one packet BID 60 packet 2 esomeprazole (NexIUM) [address] capsule Take 40 mg by mouth daily. [DISCONTINUED] lamoTRIgine (LaMICtal) 100 MG tablet One q am 30 tablet 1 [DISCONTINUED] lamoTRIgine (LaMICtal) 25 MG tablet One q PM 30 tablet 1 [DISCONTINUED] sertraline (Zoloft) 25 MG tablet Take 1.5 tablets (37.5 mg) by mouth daily. 45 tablet 1 [DISCONTINUED] azithromycin (Zithromax Z-Torsten) 250 MG tablet Take as directed 6 tablet 0 No current facility-administered medications on file prior to visit. Patient Active Problem List Diagnosis Dysmenorrhea Recurrent depression (HCC) History of renal stone Enlarged pituitary gland (HCC) Status post cholecystectomy Acute non-recurrent frontal sinusitis Social History Tobacco Use Smoking status: Never Smokeless tobacco: Never Substance Use Topics Alcohol use: No Alcohol/week: 0.0 standard drinks of alcohol Past Surgical History: Procedure Laterality Date ELBOW ARTHROSCOPY (HISTORICAL) Right 2011 lose FB removed per Dr. Harvinder ALONSO,CHOLECYSTECTOMY (HISTORICAL) 04/2022 SINUS SURGERY 03/2019 TONSILLECTOMY (HISTORICAL) 05/2018 Ai UPPER GASTROINTESTINAL ENDOSCOPY 08/[address] Wesley UPPER GASTROINTESTINAL ENDOSCOPY [address] Lundberg Family History Problem Relation Name Age of Onset No Known Problems Sister Luana older High Blood Pressure Mother Roxanne Hyperlipidemia Mother Roxanne Colon cancer Father David Objective: BP 100/60 Pulse 75 Temp 36.2 ?C (97.2 ?F) (Temporal) Ht 5' 6 (1.676 m) Wt 268 lb (122 kg) SpO2 99% BMI 43.26 kg/m? Physical Exam She appears well today normal eardrums and oropharynx. No neck masses or adenopathy. No thyroid lesions. Reflexes normal. Heart is regular without ectopy. Lungs are clear. Abdomen obese nontender without pain placement of the masses or ascites. Extremities pink without edema Normal [facility] Office Visiton 04-06-2023 Follow-up visit [id number] Wilfrid Howard 2000 F Date Provider Department Center 04/06/2023 [id number] SMITH [facility] Family History Problem Relation Age of Onset No Known Problems Sister Comments: older High Blood Pressure Mother Hyperlipidemia Mother Colon cancer Father Family Status - Relation Status Age at Sister Alive Mother Alive Father Alive Level of Service:04460 [place] OFFICE/OUTPATIENT ESTABLISHED LOW MDM 20-29 MIN Reason for Visit and Comments: Cough [28] - Sinus congestion, fever, onset about a week, negative COVID test on Normal [facility] Progress Noteon 04-06-2023 Progress Note Zithromax Z-Torsten take as directed. Saline nasal spray, Tylenol or Advil, increase fluids and rest. Normal [facility] Progress Note Patient was verified by name and . Normal [facility] Progress Note 04/06/2023 Jazmin Howard (: 2000) is a 22 y.o. female , Established patient, here for evaluation of the following chief complaint(s): Cough (Sinus congestion, fever, onset about a week, negative COVID test on ) ASSESSMENT/PLAN: 1. Acute non-recurrent frontal sinusitis Assessment & Plan: Zithromax Z-Torsten take as directed. Saline nasal spray, Tylenol or Advil, increase fluids and rest. Follow up if symptoms worsen or fail to improve. SUBJECTIVE/OBJECTIVE: HPI -Jazmin comes in today complaining of sinus congestion drainage fever 102 scratchy throat rhinorrhea that is yellow-green and cough that is productive of yellow-green sputum. And this started a week ago. Review of Systems Constitutional: Positive for fever. Negative for chills. HENT: Positive for congestion, rhinorrhea and sinus pressure. Negative for ear pain. Respiratory: Positive for cough. Negative for shortness of breath. Cardiovascular: Negative for chest pain and palpitations. Vitals: 04/06/23 1324 BP: 117/81 Pulse: 82 Temp: 36.9 ?C (98.5 ?F) TempSrc: Oral SpO2: 98% Weight: 265 lb (120 kg) Height: 5' 6 (1.676 m) Physical Exam Vitals and nursing note reviewed. Constitutional: General: She is not in acute distress. Appearance: Normal appearance. HENT: Head: Normocephalic and atraumatic. Right Ear: Tympanic membrane, ear canal and external ear normal. Left Ear: Tympanic membrane, ear canal and external ear normal. Mouth/Throat: Mouth: Mucous membranes are moist. Pharynx: Oropharynx is clear. Eyes: Extraocular Movements: Extraocular movements intact. Pupils: Pupils are equal, round, and reactive to light. Cardiovascular: Rate and Rhythm: Normal rate and regular rhythm. Heart sounds: Normal heart sounds. No murmur heard. Pulmonary: Effort: Pulmonary effort is normal. Breath sounds: Normal breath sounds. Musculoskeletal: Cervical back: Neck supple. Lymphadenopathy: Cervical: No cervical adenopathy. Neurological: Mental Status: She is alert. An electronic signature was used to authenticate this note. Neptali Smith MD 04/06/2023 2:18 PM Normal [facility] 36on 04-05-2023 36 noted Normal [facility] 36 S: the patient is ca lling the CAC about sinus symptoms B: symptoms began a week ago A: the patient reports having a cough, sinus congestion, chest congestion, and fevers of 102*F. She states she took a home COVID test that was negative. She also states she has a feeling like there is a golf ball in her throat when she tries to swallow. She is still able to eat and drink. No trouble swallowing. No pain with swallowing. R: the patient is scheduled today via POD scheduling with Dr. Smith at 1:15PM. Insurance confirmed. She will call back if she has any sinus pain, trouble breathing, wheezing or chest pain. Reason for Disposition Fever present > 3 days (72 hours) Protocols used: Sinus Pain or [id number] Normal [facility] US ABDOMEN COMPLETEOrdered B y: Javy Lundberg on 11-28-2020 Patient Name: JAZMIN MCPHERSON Ultrasound ACCESSION EXAM DATE/TIME PROCEDURE ORDERING PROVIDER [id number] 11/28/2020 08:46 EDT US Abdomen Complete ELLYJAVY MANCIA CPT code 90313 Reason For Exam (US Abdomen Complete) gerd,nausea and vomitting Report Indication: Nausea vomiting. FINDINGS: Liver normal. Gallbladder normal. No Rothman's sign. Common duct normal 2.7 mm. Pancreas unremarkable. Right kidney 11 cm and left kidney 12.4 cm. Spleen 12.7 cm. Aorta IVC unremarkable. IMPRESSION: Negative exam. No gallstones or acute biliary process. Report Dictated on --- Final --- Dictating Physician: MD MART JOHN Signed Date and Time: 11/28/2020 8:56 am Signed by: MD MART JOHN Transcribed Date and Time: 11/28/2020 8:58 [facility] Work Phone: Ricardo, Summ Incoming Radiology Results From [facility] - 11/28/2020 8:58 AM EDT Patient Name: JAZMIN HOWARD Ultrasound ACCESSION EXAM DATE/TIME PROCEDURE ORDERING PROVIDER [id number] 11/28/2020 08:46 EDT US Abdomen Complete KEFALAS, JAVY H CPT code 50278 Reason For Exam (US Abdomen Complete) gerd,nausea and vomitting Report Indication: Nausea vomiting. FINDINGS: Liver normal. Gallbladder normal. No Rothman's sign. Common duct normal 2.7 mm. Pancreas unremarkable. Right kidney 11 cm and left kidney 12.4 cm. Spleen 12.7 cm. Aorta IVC unremarkable. IMPRESSION: Negative exam. No gallstones or acute biliary process. Report Dictated on --- Final --- Dictating Physician: MD MART JOHN Signed Date and Time: 11/28/2020 8:56 am Signed by: MD MART JOHN Transcribed Date and Time: 11/28/2020 8:58 [facility] Work Phone: [facility] Work Phone: US Abdomen Completeon 2020 US Abdomen Complete Patient Name: JAZMIN MCPHERSON Ultrasound ACCESSION EXAM DATE/TIME PROCEDURE ORDERING PROVIDER [id number] 11/28/2020 08:46 EDT US Abdomen Complete KEFALAS, JAVY H CPT code 49143 Reason For Exam (US Abdomen Complete) gerd,nausea and vomitting Report Indication: Nausea vomiting. FINDINGS: Liver normal. Gallbladder normal. No Rothman's sign. Common duct normal 2.7 mm. Pancreas unremarkable. Right kidney 11 cm and left kidney 12.4 cm. Spleen 12.7 cm. Aorta IVC unremarkable. IMPRESSION: Negative exam. No gallstones or acute biliary process. Report Dictated on Final Dictating Physician: MD MART JOHN Signed Date and Time: 11/28/2020 8:56 am Signed by: MD MART JOHN Transcribed Date and Time: 11/28/2020 8:58 [facility] NM GASTRIC EMPTYINGOrdered B y: Edward Esber on 11-21-2020 Patient Name: JAZMIN MCPHERSON Nuclear Medicine ACCESSION EXAM DATE/TIME PROCEDURE ORDERING PROVIDER [id number] 11/21/2020 10:43 EDT NM Gastric Emptying ESBER, EDWARD Study CPT code 72382 Reason For Exam (NM Gastric Emptying Study) NAUSEA/VOMITING/GERD/ HEMATEMESIS Report SOLID PHASE GASTRIC EMPTYING STUDY CLINICAL INDICATION: Nausea, vomiting The patient was given a standard meal of 0.9 millicurie of technetium-99m sulfur colloid prepared with egg. Anterior and posterior images over the abdomen were obtained up to two hours after ingestion. BERNARDA activity curves over the stomach were then calculated. COMPARISON: None FINDINGS: At one hour, there is 73 percent of original activity within the stomach. At two hours after ingestion, 40 percent of original activity remains within the stomach. Normal at two hours following ingestion is between 19 and 52 percent. IMPRESSION: Normal gastric emptying with solid meal. Report Dictated on --- Final --- Dictating Physician: MD DE LA CRUZ JONATHAN R Signed Date and Time: 11/21/2020 10:49 am Signed by: MD DE LA CRUZ JONATHAN R Transcribed Date and Time: 11/21/2020 10:50 [facility] Work Phone: [facility] Incoming Radiology Results From [facility] - 11/21/2020 10:51 AM EDT Patient Name: JAZMIN HOWARD Nuclear Medicine ACCESSION EXAM DATE/TIME PROCEDURE ORDERING PROVIDER [id number] 11/21/2020 10:43 EDT NM Gastric Emptying ESBER, EDWARD Study CPT code 09661 Reason For Exam (NM Gastric Emptying Study) NAUSEA/VOMITING/GERD/ HEMATEMESIS Report SOLID PHASE GASTRIC EMPTYING STUDY CLINICAL INDICATION: Nausea, vomiting The patient was given a standard meal of 0.9 millicurie of technetium-99m sulfur colloid prepared with egg. Anterior and posterior images over the abdomen were obtained up to two hours after ingestion. BERNARDA activity curves over the stomach were then calculated. COMPARISON: None FINDINGS: At one hour, there is 73 percent of original activity within the stomach. At two hours after ingestion, 40 percent of original activity remains within the stomach. Normal at two hours following ingestion is between 19 and 52 percent. IMPRESSION: Normal gastric emptying with solid meal. Report Dictated on --- Final --- Dictating Physician: MD DE LA CRUZ JONATHAN R Signed Date and Time: 11/21/2020 10:49 am Signed by: MD DE LA CRUZ JONATHAN R Transcribed Date and Time: 11/21/2020 10:50 [facility] Work Phone: [facility] Work Phone: NM Gastric Emptying Studyon 11-21-2020 NM Gastric Emptying Study Patient Name: JAZMIN HOWARD Nuclear Medicine ACCESSION EXAM DATE/TIME PROCEDURE ORDERING PROVIDER [id number] 11/21/2020 10:43 EDT NM Gastric Emptying MANNY MARRERO Study CPT code 54935 Reason For Exam (NM Gastric Emptying Study) NAUSEA/VOMITING/GERD/ HEMATEMESIS Report SOLID PHASE GASTRIC EMPTYING STUDY CLINICAL INDICATION: Nausea, vomiting The patient was given a standard meal of 0.9 millicurie of technetium-99m sulfur colloid prepared with egg. Anterior and posterior images over the abdomen were obtained up to two hours after ingestion. BERNARDA activity curves over the stomach were then calculated. COMPARISON: None FINDINGS: At one hour, there is 73 percent of original activity within the stomach. At two hours after ingestion, 40 percent of original activity remains within the stomach. Normal at two hours following ingestion is between 19 and 52 percent. IMPRESSION: Normal gastric emptying with solid meal. Report Dictated on Final Dictating Physician: MD DE LA CRUZ JONATHAN R Signed Date and Time: 11/21/2020 10:49 am Signed by: MD DE LA CRUZ JONATHAN R Transcribed Date and Time: 11/21/2020 10:50 Normal [facility] Hemogram (CBC) w/Auto Diffon 11-13-2019 Absolute Baso # 0.1 10*3/uL 0 - 0.2 10*3/uL [place], [place] Absolute Neut # 3.6 10*3/uL 1.8 - 7 10*3/uL [place] Basophils/100 WBC (Bld) 1.1 % 0 - 2 % [place] Eosinophils (Bld) [#/Vol] 0.2 10*3/uL 0 - 0.5 10*3/uL [place] Eosinophils/100 WBC (Bld) 3.2 % 1 - 6 % [place] Erythrocyte distribution width (RBC) [Ratio] 14.1 % 11.5 - 14.5 % [place] Granulocytes/100 WBC (Bld) 52.8 % 40 - 80 % [place] Hematocrit (Bld) [Volume fraction] 38.0 % 35 - 47 % [place] Hemoglobin (Bld) [Mass/Vol] 13.0 g/dL 11.7 - 16 g/dL [place] Lymphocytes (Bld) [#/Vol] 2.3 10*3/uL 1 - 4.3 10*3/uL [place] Lymphocytes/100 WBC (Bld) 33.2 % 20 - 40 % [place] [facility] (RBC) [Entitic mass] 29.5 pg 26 - 34 pg [place], [place] MCHC (RBC) [Mass/Vol] 34.1 % 32 - 36 % [place], [place] MCV (RBC) [Entitic vol] 86.6 fL 79 - 98 fL [place] Monocytes (Bld) [#/Vol] 0.7 10*3/uL 0 - 0.8 10*3/uL [place] Monocytes/100 WBC (Bld) 9.7 % 2 - 10 % [place] Platelet mean volume (Bld) [Entitic vol] 8.5 fL 7.4 - 10.[address] [facility], [place] Platelets (Bld) [#/Vol] 285 10*3/uL 140 - 440 10*3/uL [facility], [place] RBC (Bld) [#/Vol] 4.39 10*6/uL 3.8 - 5.2 10*6/uL [facility], [place] WBC (Bld) [#/Vol] 6.8 10*3/uL 3.6 - 10.7 10*3/uL [facility], [place] Test Performed by [facility], [address] , [address], [place] Urine Drug Screenon 11-13-19 [address], [address] [facility], [place] Barbiturates, Ur Negative [facility] Benzodiazepine Ur Qual Negative [facility], [place] Cocaine Metabolites, Ur Negative [facility], [place] Methadone, Urine Negative [facility], [place] Opiates, Urine Negative [facility], [place] Oxycodone Screen, Ur Negative [facility], [place] PCP, Urine Negative [facility], [place] Comment on above: The expected value f or all of the drugs listed above is Negative. The following drugs or drug groups have been screened for by Immunoassay at the following thresholds: Amphetamine class (1000 ng/mL), Barbiturates (200 ng/mL), Benzodiazepines (200 ng/mL), Cocaine (300 ng/mL), Methadone (300 ng/mL), Opiates (300 ng/mL), Oxycodone (100 ng/mL), and PCP (25 ng/mL). NOTE: These results are for medical treatment only. Analysis performed using non-forensic procedures. POSITIVE results are NOT confirmed by a more specific alternative method unless requested. If confirmation is needed, request confirmation under separate order. Test Performed by [facility], [address] , [address], [place] Sweat Chlorideon 03-13-2019 Sweat Chloride 45 meq/L High 0-29 [facility] Comment on above: Result Comment: The [employer] Reference intervals for chloride: < or = 29 mEq/L, CF unlikely 30-59 mEq/L, Intermediate > or = 60 mEq/L, Indicative of CF A result of >30 mEq/L is considered abnormal and should prompt further investigation. NOTE: Sweat chloride values less than 30 mEq/L have been documented in genetically proven CF patients. Clinical correlation is necessary. Performed By: #### S GUERA #### [facility] [address] [place] [id number] CBCon 07-29-2018 Erythrocyte distribution width Ratio (RBC) 13.5 % Normal 12.5-15.4 [facility] Comment on above: Performed By: #### C BC, TROPI, CP, DIME #### [facility] [address] [place] [address] Regulatory Submissions Associate: Valdo Delaney MD #### TSHX #### [address] [phone] Regulatory Submissions Associate: Joe Gannon MD Hematocrit Volume Fraction (Bld) 39.1 % Normal 36-46 [facility] Comment on above: Performed By: #### C BC, TROPI, CP, DIME #### [facility] [address] [place] [address] Regulatory Submissions Associate: Valdo Delaney MD #### TSHX #### [address] [phone] Regulatory Submissions Associate: Joe Gannon MD Hemoglobin mass conc (Bld) 13.6 g/dL Normal 12.0-16.0 [facility] Comment on above: Performed By: #### C BC, TROPI, CP, DIME #### [facility] [address] [place] [address] Regulatory Submissions Associate: Valdo Delaney MD #### TSHX #### [address] [phone] Regulatory Submissions Associate: Joe Gannon MD MCH Entitic mass (RBC) 30.1 pg Normal 26-34 [facility] Comment on above: Performed By: #### C BC TROPDagoberto CP, DIME #### [facility] [address] [place] [address] [phone] Regulatory Submissions Associate: Valdo Delaney MD #### TSHX #### [address] [phone] Regulatory Submissions Associate: Joe Gannon MD MCHC mass conc (RBC) 34.7 g/dL Normal 31-37 [facility] Comment on above: Performed By: #### C BC TROPDagoberto CP, DIME #### [facility] [address] [place] [address] Regulatory Submissions Associate: Valdo Delaney MD #### TSHX #### [place] [address] Regulatory Submissions Associate: Joe Gannon MD MCV Entitic volume (RBC) 86.7 fL Normal 80-100 [facility] Comment on above: Performed By: #### C INGA TROPDagoberto CP, DIME #### [facility] [address] [place] [address] Regulatory Submissions Associate: Valdo Delaney MD #### TSHX #### [place] [address] Regulatory Submissions Associate: Joe Gannon MD Platelet mean volume Entitic volume (Bld) 8.8 fL Normal 6.0-12.0 [facility] Comment on above: Performed By: #### C BC, TROPI, CP, DIME #### [facility] [address] [place], [place] [phone] Regulatory Submissions Associate: Valdo Delaney MD #### TSHX #### [address] [id number] Regulatory Submissions Associate: Joe Gannon MD Platelets #/vol (Bld) 222 10*3/uL Normal 140-450 [facility] Comment on above: Performed By: #### C BC, TROPI, CP, DIME #### [facility] [id number] [place] [address] [phone] Regulatory Submissions Associate: Valdo Delaney MD #### TSHX #### [address] [address] Regulatory Submissions Associate: Joe Gannno MD RBC #/vol (Bld) 4.51 10*6/uL Normal 4.0-5.2 [facility] Comment on above: Performed By: #### C BC, TROPI, CP, DIME #### [facility] [address] [place] [address] Regulatory Submissions Associate: Valdo Delaney MD #### TSHX #### [address] [address] Regulatory Submissions Associate: Joe Gannon MD WBC #/vol (Bld) 5.1 10*3/uL Normal 4.5-13.5 [facility] Comment on above: Performed By: #### C BC, TROPI, CP, DIME #### [facility] [address] [place] [address] [phone] Regulatory Submissions Associate: Valdo Delaney MD #### TSHX #### [address] [address] Regulatory Submissions Associate: Joe Gannon MD NRBC Automated NOT REPORTED Normal [facility] Comment on above: Performed By: #### C BC, TROPI, CP, DIME #### [facility] [address] [place], [place] [phone] Regulatory Submissions Associate: Valdo Delaney MD #### TSHX #### [place] [phone] Regulatory Submissions Associate: Joe Gannon MD Comp Metabolic Profon 2018 (cont.) Normal [facility] Comment on above: Result Comment: Aver age GFR for <20 years old not available. Chronic Kidney Disease: <60 mL/min/1.73sq m Kidney failure: <15 mL/min/1.73sq m eGFR calculated using average adult body mass. Additional eGFR calculator available at: http://[email or web address]_[email or web address].htm Performed By: #### C BC, TROPI, CP, DIME #### [facility] [address] [place] [address] Regulatory Submissions Associate: Valdo Delaney MD #### TSHX #### [place] [phone] Regulatory Submissions Associate: Joe Gannon MD Albumin mass conc 4.6 g/dL Normal 3.5-5.2 [facility] Comment on above: Performed By: #### C BC, TROPI, CP, DIME #### [facility] [address] [place], [place] [phone] Regulatory Submissions Associate: Valdo Delaney MD #### TSHX #### [address] [phone] Regulatory Submissions Associate: Joe Gannon MD Albumin/Globulin mass ratio 1.5 {ratio} Normal 1.0-2.5 [facility] Comment on above: Performed By: #### C BC, TROPI, CP, DIME #### [facility] [address] [place], [place] [phone] Regulatory Submissions Associate: Valdo Delaney MD #### TSHX #### [address] [phone] Regulatory Submissions Associate: Jeo Gannon MD Alkaline Phos 55 U/L Normal 35-104 [facility] Comment on above: Performed By: #### C BC, TROPI, CP, DIME #### [facility] [address] [place] [address] Regulatory Submissions Associate: Valdo Delaney MD #### TSHX #### [address] [phone] Regulatory Submissions Associate: Joe Gannon MD ALT enzyme act/vol 8 U/L Normal 5-33 [facility] Comment on above: Performed By: #### C BC, TROPI, CP, DIME #### [facility] [address] [place] [address] Regulatory Submissions Associate: Valdo Delaney MD #### TSHX #### [place] [phone] Regulatory Submissions Associate: Joe Gannon MD Anion gap molar conc 13 mmol/L Normal 9-17 [facility] Comment on above: Performed By: #### C BC, TROPI, CP, DIME #### [facility] [address] [place] [address] Regulatory Submissions Associate: Valdo Delaney MD #### TSHX #### [place] [phone] Regulatory Submissions Associate: Joe Gannon MD AST enzyme act/vol 14 U/L Normal <32 [facility] Comment on above: Performed By: #### C BC, TROPI, CP, DIME #### [facility] [address] [place], [place] [phone] Regulatory Submissions Associate: Valdo Delaney MD #### TSHX #### [address] [phone] Regulatory Submissions Associate: Joe Gannon MD Bilirubin Ql (U) 0.32 mg/dL Normal 0.3-1.2 [facility] Comment on above: Performed By: #### C BC, TROPI, CP, DIME #### [facility] [id number] [place] [address] Regulatory Submissions Associate: Valdo Delaney MD #### TSHX #### [place] [phone] Regulatory Submissions Associate: Joe Gannon MD Calcium mass conc 9.6 mg/dL Normal 8.6-10.4 [facility] Comment on above: Performed By: #### C BC, TROPI, CP, DIME #### [facility] [address] [place] [address] Regulatory Submissions Associate: Valdo Delaney MD #### TSHX #### [place] [address] Regulatory Submissions Associate: Joe Gannon MD Chloride molar conc 106 mmol/L Normal 98-107 [facility] Comment on above: Performed By: #### C BC, TROPI, CP, DIME #### [facility] [address] [place] [phone] Regulatory Submissions Associate: Valdo Delaney MD #### TSHX #### [address] [phone] Regulatory Submissions Associate: Joe Gannon MD CO2 molar conc 24 mmol/L Normal 20-31 [facility] Comment on above: Performed By: #### C BC, TROPI, CP, DIME #### [facility] [address] [place], [place] [phone] Regulatory Submissions Associate: Valdo Delaney MD #### TSHX #### [address] [phone] Regulatory Submissions Associate: Joe Gannon MD Creatinine mass conc 0.81 mg/dL Normal 0.50-0.90 [facility] Comment on above: Performed By: #### C BC, TROPI, CP, DIME #### [facility] [address] [place] [address] [phone] Regulatory Submissions Associate: Valdo Delaney MD #### TSHX #### [address] [phone] Regulatory Submissions Associate: Joe Gannon MD GFR,non Amer Pediatric GFR requi res additional information. Refer to NKDEP website for Normal >60 [facility] Comment on above: Result Comment: calc ulator. Performed By: #### C BC, TROPI, CP, DIME #### [facility] [address] [place] [address] Regulatory Submissions Associate: Valdo Delaney MD #### TSHX #### [address] [phone] Regulatory Submissions Associate: Joe Gannon MD Glucose mass conc 90 mg/dL Normal 70-99 [facility] Comment on above: Performed By: #### C BC, TROPI, CP, DIME #### [facility] [address] [place] [address] [phone] Regulatory Submissions Associate: Valdo Delaney MD #### TSHX #### [address] [phone] Regulatory Submissions Associate: Joe Gannon MD Potassium molar conc 4.4 mmol/L Normal 3.7-5.3 [facility] Comment on above: Performed By: #### C PING XIONG CP, DIME #### [facility] [address] [place] [address] [phone] Regulatory Submissions Associate: Valdo Delaney MD #### TSHX #### [address] [phone] Regulatory Submissions Associate: Joe Gannon MD Protein mass conc 7.6 g/dL Normal 6.4-8.3 [facility] Comment on above: Performed By: #### C PING XIONG CP, DIME #### [facility] [address] [place] [address] Regulatory Submissions Associate: Valdo Delaney MD #### TSHX #### [place] [address] Regulatory Submissions Associate: Joe Gannon MD Sodium molar conc 143 mmol/L Normal 135-144 [facility] Comment on above: Performed By: #### C PING XIONG CP, DIME #### [facility] [address] [place] [address] Regulatory Submissions Associate: Valdo Delaney MD #### TSHX #### [address] [phone] Regulatory Submissions Associate: Joe Gannon MD Urea nitrogen mass conc 13 mg/dL Normal 6-20 [facility] Comment on above: Performed By: #### C PING XIONG CP, DIME #### [facility] [address] [place], [place] [phone] Regulatory Submissions Associate: Valdo Delaney MD #### TSHX #### [address] [phone] Regulatory Submissions Associate: Joe Gannon MD BUN/CRE Ratio NOT REPORTED Normal 9-20 [facility] Comment on above: Performed By: #### C BC, TROPI, CP, DIME #### [facility] [address] [place], [place] [phone] Regulatory Submissions Associate: Valdo Delaney MD #### TSHX #### [address] [phone] Regulatory Submissions Associate: Joe Gannon MD GFR, Amer NOT REPORTED Normal >60 [facility] Comment on above: Performed By: #### C BC, TROPI, CP, DIME #### [facility] [address] [place] [address] Regulatory Submissions Associate: Valdo Delaney MD #### TSHX #### [address] [phone] Regulatory Submissions Associate: Joe Gannon MD Staging: NOT REPORTED Normal [facility] Comment on above: Performed By: #### C BC, TROPI, CP, DIME #### [facility] [address] [place] [address] Regulatory Submissions Associate: Valdo Delaney MD #### TSHX #### [address] [phone] Regulatory Submissions Associate: Joe Gannon MD D-Dimer Teston 07-29-2018 D-Dimer Test 0.33 mg/L FEU Normal [facility] Comment on above: Result Comment: When combined with a low clinical probability, a D dimer value of <0.50 mg/L FEU is considered negative for DVT and PE (negative predictive value of 98%, sensitivity of 97%). If this test is not being used to help rule out DVT and PE, then the following reference range should be utilized: 0.00 - 1.02 mg/L FEU. The [employer] D-Dimer assay is intended for use as an aid in the diagnosis of venous thromboembolism (DVT and PE) and the results should be interpreted in conjunction with the patient's medical history, clinical presentation, and other findings. Elevated levels of D-dimer activity can be seen in any state of coagulation activation and is not recommended in patients with therapeutic dose anticoagulant therapy for >24 hours, fibrinolytic therapy within the previous 7 days, trauma or surgery within the previous 4 weeks, disseminated malignancies, aortic aneurysm, sepsis, severe infections, pneumonia, severe skin infections, liver cirrhosis, advanced age, coronary disease, diabetes, and . A very low percentage of patients with DVT may yield D-dimer results below the cutoff of 0.5 mg/L FEU. This is known to be more prevalent in patients with distal DVT. Performed By: #### C PING XIONG CP, DEIDRE #### [facility] [address] [place] [address] Regulatory Submissions Associate: Valdo Delaney MD #### TSHX #### [facility] [address] [place] [phone] Regulatory Submissions Associate: Joe Gannon MD TSH w/reflex to FT4on 2018 Thyrotropin Qn 0.97 m[IU]/L Normal 0.30-5.00 [facility] Comment on above: Performed By: #### C PING XIONG CP, DIME #### [facility] [address] [place] [address] Regulatory Submissions Associate: Valdo Delaney MD #### TSHX #### [facility] [address] [place] [phone] Regulatory Submissions Associate: Joe Gannon MD Troponinon 07-29-2018 Troponin I.cardiac mass conc ng/mL Normal 0-14 [facility] Comment on above: Result Comment: High Sensitivity Troponin values cannot be compared with other Troponin methodologies. Patients with high levels of Biotin oral intake (i.e >5mg/day) may have falsely decreased Troponin levels. Samples collected within 8 hours of biotin intake may require additional information for diagnosis. Performed By: #### C BC, TROPI, CP, DIME #### [facility] [address] [place], [place] [phone] Regulatory Submissions Associate: Valdo Delaney MD #### TSHX #### [facility] [place], [place] [phone] Regulatory Submissions Associate: Joe Gannon MD Troponin I.cardiac mass conc NOT REPORTED Normal [facility] Comment on above: Performed By: #### C BC, TROPI, CP, DIME #### [facility] [address] [place] [address] Regulatory Submissions Associate: Valdo Delaney MD #### TSHX #### [address] [address] Regulatory Submissions Associate: Joe Gannon MD XR CHEST (2 VW)on 07-29-2018 XR CHEST (2 VW) EXAMINATION: TWO VIEWS OF THE CHEST 07/29/2018 11:08 am COMPARISON: None. HISTORY: ORDERING SYSTEM PROVIDED HISTORY: Chest pressure TECHNOLOGIST PROVIDED HISTORY: SOB, chest pressure Ordering Physician Provided Reason for Exam: Chest heaviness since 07/21/18. Pt states she could not remove piercings. Acuity: Acute Type of Exam: Initial FINDINGS: Frontal and lateral views of the chest are submitted for review. The cardiac silhouette is normal in size. Lung parenchyma is clear without focal airspace consolidation, sizeable pleural effusion, or pneumothorax. Trachea is midline. Osseous structures and soft tissues are grossly intact. IMPRESSION: No acute cardiopulmonary pathology. Interpreted by: Phil Hernandez MD Signed by: Phil Hernandez MD 07/29/18 Final result Normal [facility] CT HEAD WO CONTRASTon 2018 CT HEAD WO CONTRAST EXAMINATION: CT OF THE HEAD WITHOUT CONTRAST 07/26/2018 4:41 pm TECHNIQUE: CT of the head was performed without the administration of intravenous contrast. Dose modulation, iterative reconstruction, and/or weight based adjustment of the mA/kV was utilized to reduce the radiation dose to as low as reasonably achievable. COMPARISON: None. HISTORY: ORDERING SYSTEM PROVIDED HISTORY: hit head, but no LOC; perisistent headaches, blurry vision; dizziness TECHNOLOGIST PROVIDED HISTORY: Ordering Physician Provided Reason for Exam: right side headache Acuity: Acute Type of Exam: Initial FINDINGS: BRAIN/VENTRICLES: There is no acute intracranial hemorrhage, mass effect or midline shift. No abnormal extra-axial fluid collection. The scott-white differentiation is maintained without evidence of an acute infarct. There is no evidence of hydrocephalus. ORBITS: The visualized portion of the orbits demonstrate no acute abnormality. SINUSES: The visualized paranasal sinuses and mastoid air cells demonstrate no acute abnormality. SOFT TISSUES/SKULL: No acute abnormality of the visualized skull or soft tissues. IMPRESSION: No acute intracranial abnormality. Interpreted by: Alida Silverman MD Signed by: Alida Silverman MD 07/26/18 Final result Normal [facility] Vital Signs Date Time Vital Sign Value Performing Clinician Facility 02-15-2024 09:18-0400 Body height 167.6 cm Nan Fonseca MD Work Phone: [facility] 02-15-2024 09:18-0400 Body mass index (BMI) [Ratio] 43.58 kg/m2 Nan Fonseca MD Work Phone: [facility] 02-15-2024 09:18-0400 Body weight 122.47 kg Nan Fonseca MD Work Phone: [facility] 02-15-2024 09:18-0400 Diastolic blood pressure 86 mm[Hg] Nan Fonseca MD Work Phone: [facility] 02-15-2024 09:18-0400 Heart rate 81 /min Nan Fonseca MD Work Phone: [facility] 02-15-2024 09:18-0400 Respiratory rate 16 /min Nan Fonseca MD Work Phone: [facility] 02-15-2024 09:18-0400 SaO2% (BldA) [Mass fraction] 99 % Nan Fonseca MD Work Phone: [facility] 02-15-2024 09:18-0400 Systolic blood pressure 124 mm[Hg] Nan Fonseca MD Work Phone: [facility] 01-06-2024 14:13-0400 Body mass index (BMI) [Ratio] 42.39 kg/m2 Radha Barton SENIOR RUBY DEVELOPER.GAUGE AND INSTRUMENT INSPECTOR Work Phone: [facility] 01-06-2024 14:13-0400 Body weight 121.2 kg Radha Nora SENIOR RUBY DEVELOPER.GAUGE AND INSTRUMENT INSPECTOR Work Phone: [facility] 01-06-2024 14:13-0400 Diastolic blood pressure 74 mm[Hg] Radha Nora SENIOR RUBY DEVELOPER.GAUGE AND INSTRUMENT INSPECTOR Work Phone: [facility] 01-06-2024 14:13-0400 Systolic blood pressure 128 mm[Hg] Radha Nora SENIOR RUBY DEVELOPER.GAUGE AND INSTRUMENT INSPECTOR Work Phone: [facility] 10-08-2023 15:11-0400 Body mass index (BMI) [Ratio] 43.21 kg/m2 Radha Nora SENIOR RUBY DEVELOPER.GAUGE AND INSTRUMENT INSPECTOR Work Phone: [facility] 10-08-2023 15:11-0400 Body weight 123.56 kg Radha Nora SENIOR RUBY DEVELOPER.GAUGE AND INSTRUMENT INSPECTOR Work Phone: [facility] 10-08-2023 15:11-0400 Diastolic blood pressure 82 mm[Hg] Radha Barton SENIOR RUBY DEVELOPER.GAUGE AND INSTRUMENT INSPECTOR Work Phone: [facility] 10-08-2023 15:11-0400 Systolic blood pressure 130 mm[Hg] Radha Barton SENIOR RUBY DEVELOPER.GAUGE AND INSTRUMENT INSPECTOR Work Phone: [facility] 08-13-2023 07:06-0400 Body height 167.6 cm Isabelle Briceno PA-C Work Phone: [facility] 08-13-2023 07:06-0400 Body mass index (BMI) [Ratio] 43.68 kg/m2 Isabelle Briceno PA-C Work Phone: [facility] 08-13-2023 07:06-0400 Body temperature 97.59 [degF] Isabelle Briceno PA-C Work Phone: [facility] 08-13-2023 07:06-0400 Body weight 122.74 kg Isabelle Briceno PA-C Work Phone: [facility] 08-13-2023 07:06-0400 Diastolic blood pressure 82 mm[Hg] Isabelle Briceno PA-C Work Phone: [facility] 08-13-2023 07:06-0400 Heart rate 84 /min Isabelle Briceno PA-C Work Phone: [facility] 08-13-2023 07:06-0400 Respiratory rate 14 /min Isabelle Briceno PA-C Work Phone: [facility] 08-13-2023 07:06-0400 Systolic blood pressure 124 mm[Hg] Isabelle Briceno PA-C Work Phone: [facility] 05-25-2023 10:03-0500 Body height 167.6 cm Isabelle Briceno PA-C Work Phone: [facility] 05-25-2023 10:03-0500 Body mass index (BMI) [Ratio] 42.61 kg/m2 Isabelle Briceno PA-C Work Phone: [facility] 05-25-2023 10:03-0500 Body temperature 97.81 [degF] Isabelle Briceno PA-C Work Phone: [facility] 05-25-2023 10:03-0500 Body weight 119.75 kg Isabelle Briceno PA-C Work Phone: [facility] 05-25-2023 10:03-0500 Diastolic blood pressure 82 mm[Hg] Isabelle Briceno PA-C Work Phone: [facility] 05-25-2023 10:03-0500 Heart rate 90 /min Isabelle Briceno PA-C Work Phone: [facility] 05-25-2023 10:03-0500 SaO2% (BldA) [Mass fraction] 98 % Isabelle Briceno PA-C Work Phone: [facility] 05-25-2023 10:03-0500 Systolic blood pressure 130 mm[Hg] Isabelle Briceno PA-C Work Phone: [facility] 05-11-2023 07:39-0500 Body height 167.6 cm Iglesia Polk DO Work Phone: [facility] 05-11-2023 07:39-0500 Body mass index (BMI) [Ratio] 43.26 kg/m2 Iglesia Polk DO Work Phone: [facility] 05-11-2023 07:39-0500 Body temperature 97.2 [degF] Iglesia Polk DO Work Phone: [facility] 05-11-2023 07:39-0500 Body weight 121.56 kg Iglesia Polk DO Work Phone: [facility] 05-11-2023 07:39-0500 Diastolic blood pressure 60 mm[Hg] Iglesia Polk DO Work Phone: [facility] 05-11-2023 07:39-0500 Heart rate 75 /min Iglesia Polk DO Work Phone: [facility] 05-11-2023 07:39-0500 SaO2% (BldA) [Mass fraction] 99 % Iglesia Polk DO Work Phone: [facility] 05-11-2023 07:39-0500 Systolic blood pressure 100 mm[Hg] Iglesia Polk DO Work Phone: [facility] 04-06-2023 13:24-0500 Body height 167.6 cm Neptali Smith MD Work Phone: [facility] 04-06-2023 13:24-0500 Body mass index (BMI) [Ratio] 42.77 kg/m2 Neptali Smith MD Work Phone: [facility] 04-06-2023 13:24-0500 Body temperature 98.49 [degF] Neptali Smith MD Work Phone: [facility] 04-06-2023 13:24-0500 Body weight 120.2 kg Neptali Smith MD Work Phone: [facility] 04-06-2023 13:24-0500 Diastolic blood pressure 81 mm[Hg] Neptali Smith MD Work Phone: [facility] 04-06-2023 13:24-0500 Heart rate 82 /min Neptali Smith MD Work Phone: [facility] 04-06-2023 13:24-0500 SaO2% (BldA) [Mass fraction] 98 % Neptali Smith MD Work Phone: [facility] 04-06-2023 13:24-0500 Systolic blood pressure 117 mm[Hg] Neptali Smith MD Work Phone: [facility] 01-01-2023 14:13-0400 Body height 169.1 cm Radha Nora SENIOR RUBY DEVELOPER.GAUGE AND INSTRUMENT INSPECTOR Work Phone: [facility] 01-01-2023 14:13-0400 Body weight 115.21 kg Radha Barton SENIOR RUBY DEVELOPER.GAUGE AND INSTRUMENT INSPECTOR Work Phone: [facility] 01-01-2023 14:13-0400 Diastolic blood pressure 76 mm[Hg] Radha Barton SENIOR RUBY DEVELOPER.GAUGE AND INSTRUMENT INSPECTOR Work Phone: [facility] 01-01-2023 14:13-0400 Systolic blood pressure 132 mm[Hg] Radha Nora SENIOR RUBY DEVELOPER.GAUGE AND INSTRUMENT INSPECTOR Work Phone: [facility] 12-01-2022 07:21-0400 Body weight 113.85 kg Radha Barton SENIOR RUBY DEVELOPER.GAUGE AND INSTRUMENT INSPECTOR Work Phone: [facility] 12-01-2022 07:21-0400 Diastolic blood pressure 78 mm[Hg] Radha Nora SENIOR RUBY DEVELOPER.GAUGE AND INSTRUMENT INSPECTOR Work Phone: [facility] 12-01-2022 07:21-0400 Systolic blood pressure 126 mm[Hg] Radha Barton SENIOR RUBY DEVELOPER.GAUGE AND INSTRUMENT INSPECTOR Work Phone: [facility] 11-13-2019 22:26-0400 Body Temperature 98.8 [degF] Eligio Rudolph [place], [place] 11-13-2019 22:26-0400 BP Diastolic 89 mm[Hg] [facility] [place] 11-13-2019 22:26-0400 BP Systolic 152 mm[Hg] Eligio Hough [facility] [place] , [place] 11-13-2019 22:26-0400 Pulse (Heart Rate) 89 /min Eligio Hough [facility] 11-13-2019 22:26-0400 Pulse Oximetry 98 % Eligio Hough [facility] , [place] 11-13-2019 22:26-0400 Respiratory Rate 20 /min Eligio Hough [facility] H, [facility] 04-24-2019 23:04-0500 Body temperature 98.91 [degF] Delano Camarena MD Work Phone: [facility] Work Phone: 04-24-2019 23:04-0500 Diastolic blood pressure 95 mm[Hg] Delano Camarena MD Work Phone: [facility] Work Phone: 04-24-2019 23:04-0500 Heart rate 72 /min Delano Camarena MD Work Phone: [facility] Work Phone: 04-24-2019 23:04-0500 Respiratory rate 20 /min Delano Camarena MD Work Phone: [facility] Work Phone: 04-24-2019 23:04-0500 SaO2% (BldA) [Mass fraction] 99 % Delano Camarena MD Work Phone: [facility] Work Phone: 04-24-2019 23:04-0500 Systolic blood pressure 137 mm[Hg] Delano Camarena MD Work Phone: [facility] Work Phone: Encounters Encounter Date Encounter Type Care Provider Facility Start: 02-15-2024 End: 02-15-2024 ambulatory NAN FONSECA Facility:[facility] Start: 02-15-2024 End: 02-15-2024 Patient encounter procedure Nan Fonseca MD Work Phone: OB/Gynecology Comment on above: Bicornate uterus (Pr imary Dx); Iron deficiency anemia due to chronic blood loss; Dysmenorrhea; Abnormal uterine bleeding (AUB); Endometrial polyp Start: 02-03-2024 End: 02-15-2024 [facility]ulatory [facility] Start: 02-03-2024 End: 02-15-2024 Patient encounter procedure Lucia Quintana RN [facility] Clinical Communication Start: 01-18-2024 End: 01-27-2024 Telephone encounter Radha Barton SENIOR RUBY DEVELOPER.GAUGE AND INSTRUMENT INSPECTOR Work Phone: OB/Gynecology Comment on above: Preparations For Anthony kiara Start: 01-06-2024 End: 01-06-2024 ambulatory RADHA NORA Facility:[facility] Start: 01-06-2024 End: 01-06-2024 Patient encounter procedure Radha Barton SENIOR RUBY DEVELOPER.GAUGE AND INSTRUMENT INSPECTOR Work Phone: OB/Gynecology Comment on above: Irregular menstrual cycle (Primary Dx) Start: 12-30-2023 End: 01-06-2024 Telephone encounter Radha Barton SENIOR RUBY DEVELOPER.GAUGE AND INSTRUMENT INSPECTOR Work Phone: OB/Gynecology Comment on above: Results Start: 12-26-2023 ambulatory IGLESIA Cedeno it:[facility] Start: 12-26-2023 End: 12-26-2023 Subsequent hospital visit by physician [facility] 1 Work Phone: Radiology Comment on above: Irregular menstrual cycle [N92.6] Start: 11-01-2023 End: 12-03-2023 ambulatory [facility] Start: 11-01-2023 End: 12-03-2023 Patient encounter procedure Joseline Simon RN [facility] Clinical Communication Start: 10-08-2023 End: 10-08-2023 ambulatory RADHA MELENDEZ Facility:[facility] Start: 10-08-2023 End: 10-08-2023 Patient encounter procedure Radha Nora SENIOR RUBY DEVELOPER.GAUGE AND INSTRUMENT INSPECTOR Work Phone: OB/Gynecology Comment on above: Irregular menstrual cycle (Primary Dx) Start: 09-16-2023 ambulatory IGLESIA Cedeno ity:[facility] Start: 09-16-2023 End: 09-16-2023 Subsequent hospital visit by physician Mri Wyocena (1.5t) [facility] Comment on above: Spondylosis without myelopathy or radiculopathy, 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] Start: 09-06-2023 End: 09-07-2023 ambulatory [facility] Start: 09-04-2023 End: 09-04-2023 Emergency department patient visit [facility] Facility:[facility] Start: 09-03-2023 End: 09-03-2023 ambulatory [facility] Start: 08-16-2023 Telephone encounter Iglesia glasgow DO Work Phone: [facility] Comment on above: addended referral re quest Start: 08-13-2023 End: 08-13-2023 Subsequent hospital visit by physician Isabelle Briceno PA-C Work Phone: [facility] Radiology Comment on above: Neck pain, acute Start: 08-13-2023 End: 08-13-2023 ambulatory [facility] Start: 08-13-2023 End: 08-13-2023 Office outpatient visit 15 minutes Isabelle Briceno PA-C Work Phone: [facility] Comment on above: Neck pain, acute (Pr imary Dx) Start: 08-13-2023 End: 08-13-2023 ambulatory [facility] Start: 06-30-2023 ambulatory Raquel Saldana C linical Communication Start: 06-30-2023 Patient encounter procedure Raquel Saldana Clinical Communication Start: 06-30-2023 End: 07-02-2023 Evaluation and management of inpatient KATRIN DIOP [facility] Start: 06-18-2023 ambulatory Jodie Saldana Clinical Communication Start: 06-18-2023 Patient encounter procedure Jodie Saldana Clinical Communication Start: 05-27-2023 End: 05-27-2023 Subsequent hospital visit by physician Isabelle Briceno PA-C Work Phone: [facility] Comment on above: Right arm pain Start: 05-27-2023 End: 05-27-2023 ambulatory [facility] Start: 05-25-2023 End: 05-25-2023 Subsequent hospital visit by physician Isabelle Briceno PA-C Work Phone: [facility] Radiology Comment on above: Right arm pain Start: 05-25-2023 End: 05-25-2023 Office outpatient visit 15 minutes Isabelle Briceno PA-C Work Phone: [facility] Comment on above: Right arm pain (Prim estefani Dx) Start: 05-25-2023 End: 05-25-2023 ambulatory [facility] Start: 05-11-2023 End: 05-11-2023 ambulatory IGLESIA [facility] Start: 05-11-2023 End: 05-11-2023 Office outpatient visit 15 minutes Iglesia Polk DO Work Phone: [facility] Comment on above: Recurrent depression (HCC) (Primary Dx); Status post cholecystectomy Start: 05-06-2023 Telephone encounter Iglesia glasgow DO Work Phone: [facility] Comment on above: Orders (Psychiatry r eferral ) Start: 04-08-2023 Refill Brinda GuerreroGAUGE AND INSTRUMENT INSPECTOR Work Phone: [facility] Comment on above: Refill Request Start: 04-06-2023 End: 04-06-2023 ambulatory [facility] Start: 04-06-2023 End: 04-06-2023 Office outpatient visit 15 minutes Neptali Smith MD Work Phone: [facility] Comment on above: Acute non-recurrent frontal sinusitis (Primary Dx) Start: 01-01-2023 End: 01-01-2023 Patient encounter procedure Radha Melendez APRN.GAUGE AND INSTRUMENT INSPECTOR Work Phone: OB/Gynecology Comment on above: Encounter for gyneco logical examination (general) (routine) without abnormal findings (Primary Dx); Screening for cervical cancer; Pelvic pain in female Start: 01-01-2023 End: 01-01-2023 Patient encounter status Radhacleopatra TylerBartoncarol YIP.GAUGE AND INSTRUMENT INSPECTOR Work Phone: [facility] Work Phone: Start: 12-07-2022 Refill Iglesia elaine DO Work Phone: [facility] Start: 12-01-2022 End: 12-01-2022 Patient encounter procedure Radhacleopatra TylerBarton PHI.GAUGE AND INSTRUMENT INSPECTOR Work Phone: OB/Gynecology Comment on above: Screen for STD (sexu ally transmitted disease) (Primary Dx) Start: 09-05-2022 Refill Brindajillian Tyson APR N.GAUGE AND INSTRUMENT INSPECTOR Work Phone: [facility] Comment on above: Refill Request Start: 04-24-2022 Refill Brindajillian Tyson APR N.GAUGE AND INSTRUMENT INSPECTOR Work Phone: [facility] Comment on above: Refill Request Start: 04-23-2022 Refill Brinda Jillian Tsyon APR N.GAUGE AND INSTRUMENT INSPECTOR Work Phone: [facility] Start: 04-19-2022 Refill Brinda Jillian Tyson APR N.GAUGE AND INSTRUMENT INSPECTOR Work Phone: [facility] Comment on above: Refill Request; Refi ll Request Start: 01-15-2022 Telephone encounter Brinda Tyson APRN.GAUGE AND INSTRUMENT INSPECTOR Work Phone: [facility] Comment on above: Patient Update Start: 01-02-2022 Telephone encounter Brinda Tyson APRN.GAUGE AND INSTRUMENT INSPECTOR Work Phone: [facility] Comment on above: Medication Problem Start: 12-03-2021 Refill Brinda Jillian Tyson APR N.GAUGE AND INSTRUMENT INSPECTOR Work Phone: [facility] Comment on above: Refill Request Start: 10-28-2021 Telephone encounter Brinda Tyson APRN.GAUGE AND INSTRUMENT INSPECTOR Work Phone: [facility] Comment on above: Icu Registered Nurse - O ther Start: 10-15-2021 Refill Brinda A Jah APR N.GAUGE AND INSTRUMENT INSPECTOR Work Phone: [facility] Comment on above: Refill Request Start: 09-08-2021 End: 09-08-2021 [facility] Brinda A Jah SENIOR RUBY DEVELOPER.GAUGE AND INSTRUMENT INSPECTOR Work Phone: [facility] Comment on above: Mood disorder (HCC) (Primary Dx); Generalized anxiety disorder; Major depressive disorder, recurrent episode, in full remission (HCC) Start: 07-29-2021 Refill Brinda A Jah APR N.GAUGE AND INSTRUMENT INSPECTOR Work Phone: [facility] Comment on above: Refill Request Start: 11-28-2020 End: 11-28-2020 Subsequent hospital visit by physician Javy Lundberg MD Work Phone: [facility] Comment on above: Arrived Start: 11-21-2020 End: 11-21-2020 Subsequent hospital visit by physician Javy Lundberg MD Work Phone: [facility] Comment on above: Arrived Start: 11-13-2019 End: 11-13-2019 Emergency department patient visit Eligio Rudolph Work Phone: [facility] Comment on above: Current mild episode of major depressive disorder, unspecified whether recurrent (HCC) (Primary Dx) Start: 04-24-2019 End: 04-24-2019 Emergency department patient visit Delano Camarena MD Work Phone: [facility] Comment on above: Medication reaction, initial encounter (Primary Dx) Start: 08-25-2018 End: 08-26-2018 Patient encounter procedure CASSIDY M [facility] Start: 07-29-2018 End: 08-01-2018 Patient encounter procedure CASSIDY Andrade [facility] Start: 07-26-2018 End: 07-26-2018 Emergency department patient visit IGLESIA POLK [facility] Procedures Date Procedure Procedure Detail Performing Clinician Start: 09-16-2023 End: 09-16-2023 Mra head w/o contrst material Carmine Ahmadi Work Phone: Start: 05-27-2023 NERVE CONDUCTION ROCKY T WITH EMG Isabelle Briceno PA-C Work Phone: Start: 05-25-2023 Radex elbow complete minimum 3 views Isabelle Briceno PA-C Work Phone: Start: 01-01-2023 Microscopic observat ion [Identifier] in Cervix by Cyto stain Neptali Smith MD Work Phone: Start: 11-24-2022 History of cholecystectomy Status post cholecystectomy Iglesia Polk DO Work Phone: Start: 09-07-2021 Adult depression screening assessment Brinda Tyson APRN.GAUGE AND INSTRUMENT INSPECTOR Work Phone: Start: 02-24-2021 Adult depression screening assessment Brinda Tyson APRN.GAUGE AND INSTRUMENT INSPECTOR Work Phone: Start: 11-28-2020 Us abdominal real ti me w/image documentation Javy Lundberg MD Work Phone: Start: 11-21-2020 Gastric emptying mars ging study Manny Marrero MD Work Phone: Start: 11-13-2019 Drug screen class list a Eligio Rudolph Work Phone: Start: 11-13-2019 Blood count complete auto&auto difrntl wbc Eligio Ronni Work Phone: Start: 03-13-2019 Iontophoresis Comment on above: Performed By: #### I ONTO #### [facility] [address] [place] [address] Start: 08-25-2018 Echo tthrc r-t 2d w/wom-mode compl spec&colr d CASSIDY PIERRE Start: 08-25-2018 Xtrnl ecg & 48 hr re cord scan stor w/r&i CASSIDY PIERRE Start: 07-29-2018 Assay of thyroid stimulating hormone tsh IGLESIA POLK Start: 07-29-2018 Assay of troponin quantitative IGLESIA POLK Start: 07-29-2018 Blood count complete automated IGLESIA POLK Start: 07-29-2018 Comprehensive metabo lic panel IGLESIA POLK Start: 07-29-2018 Fibrin dgradj produc ts d-dimer quantitative IGLESIA POLK Start: 07-29-2018 Ecg routine ecg w/le ast 12 lds w/i&r IGLESIA POLK Start: 07-29-2018 Radiologic exam ches t 2 views IGLESIA POLK Start: 07-26-2018 Ct head/brain w/o contrast material IGLESIA POLK History of cholecystectomy Status post cholecystectomy Iglesia Polk DO Work Phone: Plan of Treatment Date Care Activity Detail Author Start: 2059 RSV Immunization age d 60 or older (1 - 1-dose 60+ series) RSV Immunization aged 60 or older (1 - 1-dose 60+ series) [facility] Start: 07-07-2049 Zoster Vaccines (1 o f 2) Zoster Vaccines (1 of 2) [facility] Start: 08-04-2028 DTaP/Tdap/Td vaccine (6 - Td or Tdap) DTaP/Tdap/Td vaccine (6 - Td or Tdap) [facility] Work Phone: Start: 08-04-2028 DTaP/Tdap/Td vaccine (6 - Td) DTaP/Tdap/Td vaccine (6 - Td) [facility] Work Phone: Start: 08-04-2028 DTaP/Tdap/Td Vaccine s (6 - Td or Tdap) DTaP/Tdap/Td Vaccines (6 - Td or Tdap) [facility] Start: 08-04-2028 Urine microalbumin profile DTaP,Tdap,Td Vaccine (6 - Td or Tdap) [facility] Start: 01-01-2026 Pap Testing Pap Testing [facility] Start: 01-01-2026 Screening for malign ant neoplasm of cervix [facility] Start: 05-02-2024 End: 05-02-2024 Patient encounter procedure 05/02/2024 9:20 AM EST Office Visit OB/Gynecology [address] [place] [address] Nan Fonseca MD [address] [place] [address] Surgery 02/23/Follow up OB/Gynecology Comment on above: Surgery 02/23/Follow up Start: 02-15-2024 End: 02-15-2024 Patient encounter procedure 02/15/2024 9:20 AM EDT Office Visit OB/Gynecology [address] [place] [address] Nan Fonseca MD [address] [place] [address] surgery 02/23 OB/Gynecology Comment on above: surgery 02/23 Start: 01-06-2024 End: 01-06-2024 Patient encounter procedure 01/06/2024 2:30 PM EDT Office Visit OB/Gynecology [address] [place] [address] Radha Melendez APRN.GAUGE AND INSTRUMENT INSPECTOR [address] [place] [address] cysts OB/Gynecology Comment on above: cysts Start: 01-06-2024 End: 04-06-2024 Iron and Iron binding capacity panel - Serum or Plasma [facility] Work Phone: Comment on above: Expected: 01/06/2024 , Expires: 04/06/2024 Start: 01-02-2024 Covid-19 Vaccine ( season) Covid-19 Vaccine ( season) [facility] Start: 01-02-2024 Covid-19 Vaccine ( season) Covid-19 Vaccine ( season) [facility] Start: 01-02-2024 Influenza vaccination [facility] Start: 12-29-2023 Depression Monitoring Depression Mon [facility] Start: 12-29-2023 [facility] Start: 12-02-2023 CHLAMYDIA SCREENING (18-24) CHLAMYDIA SCREENING (18-) [facility] Start: 12-02-2023 GC (GONORRHEA) SCREENING (18-24) GC (GONORRHEA) SCREENING (18-24) [facility] Start: 10-21-2023 End: 10-21-2023 Patient encounter procedure 10/21/2023 8:30 AM EDT Appointment Radiology [address] [place] [address] Irregular menstrual cycle [N92.6] Radiology Comment on above: Irregular menstrual cycle [N92.6] Start: 10-08-2023 End: 01-07-2024 17-Hydroxyprogesterone [Mass/volume] in Serum or Plasma [facility] Comment on above: Expected: 10/08/2023 , Expires: 01/07/2024 Start: 10-08-2023 End: 01-07-2024 TESTOSTERONE, FREE AND TOTAL [facility] Work Phone: Comment on above: Expected: 10/08/2023 , Expires: 01/07/2024 Start: 10-05-2023 End: 10-05-2023 Patient encounter procedure 10/05/2023 9:00 AM EDT Office Visit [facility] [address] [facility] [place] [address] Matt Gray MD [address] [place], [place] [id number] [facility] Start: 08-13-2023 End: 08-12-2024 XR Cervical spine 4 or 5 Views [facility] Work Phone: Comment on above: Expected: 08/13/2023 , Expires: 08/12/2024 Once for 1 Occurrenc es starting 08/13/2023 until 08/13/2023 Start: 05-27-2023 End: 05-27-2023 Patient encounter procedure 05/27/2023 1:00 PM EST Appointment [facility] [address] [place] [id number] Isabelle Briceno PA-C [address] [place] [address] [place] [address] [facility] Start: 05-25-2023 End: 05-25-2024 Nerve conduction test with EMG Nerve conduction test with EMG Neurology Routine Right arm pain Expected: 05/25/2023 (Approximate), Expires: 05/25/2024 [facility] Work Phone: Comment on above: Expected: 05/25/2023 (Approximate), Expires: 05/25/2024 Start: 01-01-2023 COVID-19 Vaccine () COVID-19 Vaccine () [facility] Start: 01-01-2023 Influenza vaccination [facility] Start: 12-01-2022 End: 01-31-2023 Choriogonadotropin.beta subunit [Units/volume] in Serum or Plasma [facility] Work Phone: Comment on above: Expected: 12/01/2022 , Expires: 01/31/2023 Start: 12-01-2022 End: 01-31-2023 Hepatitis B virus surface Ag [Presence] in Serum [facility] Work Phone: Comment on above: Expected: 12/01/2022 , Expires: 01/31/2023 Start: 12-01-2022 End: 01-31-2023 Hepatitis C virus RNA [Units/volume] (viral load) in Serum or Plasma by KAREEM with probe detection [facility] Work Phone: Comment on above: Expected: 12/01/2022 , Expires: 01/31/2023 Start: 12-01-2022 End: 01-31-2023 HIV 1+2 Ab [Presence] in Serum or Plasma by Immunoassay [facility] Work Phone: Comment on above: Expected: 12/01/2022 , Expires: 01/31/2023 Start: 12-01-2022 End: 01-31-2023 SYPHILIS TOTAL W/REFLEX [facility] Work Phone: Comment on above: Expected: 12/01/2022 , Expires: 01/31/2023 Start: 09-07-2022 Adult depression screening assessment DEPRESSION SCREENING [facility] Start: 02-24-2022 Adult depression screening assessment DEPRESSION SCREENING [facility] Start: 01-01-2022 Influenza vaccination C [facility] Start: 06-09-2021 COVID-19 VACCINE (3 - Booster for Pfizer series) COVID-19 VACCINE (3 - Booster for Pfizer series) [facility] Start: 03-04-2021 COVID-19 VACCINE (3 - Booster for Pfizer series) COVID-19 VACCINE (3 - Booster for Pfizer series) [facility] Start: 03-04-2021 COVID-19 VACCINE (3 - Pfizer series) COVID-19 VACCINE (3 - Pfizer series) [facility] Start: 01-01-2021 Influenza vaccination C [facility] Start: 11-25-2020 End: 11-25-2020 Patient encounter procedure 11/25/2020 Appointment Radiology Javy Lundberg MD [address] [place] [address] [address] [place] [address] [facility] Start: 08-22-2020 COVID-19 Vaccine (2 - Pfizer 2-dose series) COVID-19 Vaccine (2 - Pfizer 2-dose series) [facility] Work Phone: Start: 07-07-2020 PAP TESTING PAP TESTING [facility] Start: 07-07-2020 Screening for malign ant neoplasm of cervix [facility] Start: 01-02-2020 Influenza vaccination Flu vaccine (# 1) [place], [place] Start: 08-13-2019 Chlamydia screen Chlamydia screen [facility] Work Phone: Comment on above: Postponed from 07/07 (Patient Refused) Start: 08-13-2019 HIV screen HIV screen [facility] Work Phone: Comment on above: Postponed from 07/07 (Patient Refused) Start: 05-26-2019 End: 05-26-2019 Patient encounter procedure 05/26/2019 Office Visit Family Medicine Iglesia Polk DO [address] [place] [address] [phone] [facility] Start: 04-18-2019 CHLAMYDIA SCREENING (18-24) CHLAMYDIA SCREENING (18-24) [facility] Start: 04-18-2019 GC (GONORRHEA) SCREENING (18-24) GC (GONORRHEA) SCREENING (18-24) [facility] Start: 07-07-2018 Urine microalbumin profile DTAP,TDAP,TD (1 - Tdap) [facility] Start: 07-07-2017 HEPATITIS C SCREENING HEPATITIS C [facility] Start: 07-07-2017 Hepatitis C screening Hepatitis C [facility] Start: 07-07-2017 HIV SCREENING HIV SCREENING [facility] Start: 2015 Meningococcal B Vaccine: Consider Based On Risk (2 of 2 - Risk Bexsero 2-dose series) Meningococcal B Vaccine: Consider Based On Risk (2 of 2 - Risk Bexsero 2-dose series) [facility] Start: 2015 MENINGOCOCCAL B: Consider based on risk (2 of 2 - Risk Bexsero 2-dose series) MENINGOCOCCAL B: Consider based on risk (2 of 2 - Risk Bexsero 2-dose series) [facility] Start: 2015 Screening for Chlamy isis trachomatis Chlamydia screen [facility] [place] Start: 01-08-2015 HEPATITIS B (2 of 3 - 3-dose series) HEPATITIS B (2 of 3 - 3-dose series) [facility] Start: 01-08-2015 MENINGOCOCCAL B: Consider based on risk (2 of 2 - Risk Bexsero 2-dose series) MENINGOCOCCAL B: Consider based on risk (2 of 2 - Risk Bexsero 2-dose series) [facility] Start: 07-07-2014 HIV screening HIV screen [facility] [place] [place] Start: 07-07-2013 PEDS TO ADULT TRANSITION ANNUAL ASSESSMENT PEDS TO ADULT TRANSITION ANNUAL ASSESSMENT [facility] Start: 2011 Depresssion Monitoring Depresssion M onitoring [facility] Start: 2011 PEDS TO ADULT TRANSITION INITIAL DISCUSSION PEDS TO ADULT TRANSITION INITIAL DISCUSSION [facility] Start: 2003 IPV Vaccines (4 of 4 - 4-dose series) IPV Vaccines (4 of 4 - 4-dose series) [facility] Start: 2003 Varicella vaccination Varicell a Vaccines (2 of 2 - 2-dose childhood series) [facility] Start: 1999 Hepatitis C screening Hepatitis C sc [facility] Work Phone: Start: 1999 HIV screening HIV Screening [facility] Chlamydia trachomatis+Neisseria gonorrhoeae DNA [Presence] in Unspecified specimen by KAREEM with probe detection GONORRHEA/CHLAMYDIA NAAT Lab Routine Screen for STD (sexually transmitted disease) Ordered: 12/01/2022 [facility] Work Phone: Comment on above: Ordered: 12/01/2022 End: 11-13-2019 CK CK Lab STAT One Time for 1 Occurrences starting 11/13/2019 until 11/13/2019 [place], [place] Comment on above: One Time for 1 Occur rences starting 11/13/2019 until 11/13/2019 CK CK Lab STAT 10/31 10:37 PM EDT [place] End: 11-13-2019 Comprehensive metabolic 2000 panel Comprehensive Metabolic Panel Lab STAT One Time for 1 Occurrences starting 11/13/2019 until 11/13/2019 [place] Comment on above: One Time for 1 Occur rences starting 11/13/2019 until 11/13/2019 Comprehensive metabo lic 2000 panel Comprehensive Metabolic Panel Lab STAT 11/13/2019 10:37 PM EDT [place] End: 11-13-2019 Ethanol [Mass/Vol] Ethanol Lab STAT One Time for 1 Occurrences starting 11/13/2019 until 11/13/2019 [place] Comment on above: One Time for 1 Occur rences starting 11/13/2019 until 11/13/2019 Ethanol [Mass/Vol] Ethanol Lab S TAT 11/13/2019 10:37 PM EDT [place] End: 11-13-2019 HCG Qualitative, Serum HCG Qualitative, Serum Lab STAT One Time for 1 Occurrences starting 11/13/2019 until 11/13/2019 [place] Comment on above: One Time for 1 Occur rences starting 11/13/2019 until 11/13/2019 HCG Qualitative, Serum HCG Quali tative, Serum Lab STAT 11/13/2019 10:37 PM EDT [place] OUTSIDE PROCEDURE SCAN OUTSIDE P ROCEDURE SCAN Procedures Ordered: 08/13/2023 [facility] Comment on above: Ordered: 08/13/2023 PAP TEST PAP TEST Lab [facility] Screening for cervical cancer 01/01/2023 2:52 PM EDT [facility] [place] Work Phone: TRICHOMONAS VAGINALI S NAAT TRICHOMONAS VAGINALIS NAAT Lab Routine Screen for STD (sexually transmitted disease) Ordered: 12/01/2022 [facility] [place] Work Phone: Comment on above: Ordered: 12/01/2022 End: 11-13-2019 Urinalysis Urinalysis Lab STAT One Time for 1 Occurrences starting 11/13/2019 until 11/13/2019 [facility] [place] Comment on above: One Time for 1 Occur rences starting 11/13/2019 until 11/13/2019 Urinalysis Urinalysis Lab S TAT 11/13/2019 10[facility] [facility] End: 11-06-2024 US Pelvis transvaginal US FEMALE PELVIS TRANSVAG Radiology Routine Irregular menstrual cycle 1 Occurrences starting 10/08/2023 until 11/06/2024 [facility] Comment on above: 1 Occurrences starti ng 10/08/2023 until 11/06/2024 US Pelvis transvaginal US FEMALE PELVIS TRANSVAG Radiology Routine Irregular menstrual cycle 12/26/2023 9:48 AM EDT [facility] [place] Work Phone: End: 01-31-2024 Us transvaginal US FEMALE PELVIS TRANSVAG Radiology Routine Pelvic pain in female 1 Occurrences starting 01/01/2023 until 01/31/2024 [facility] [place] Work Phone: Comment on above: 1 Occurrences starti ng 01/01/2023 until 01/31/2024 [facility] Immunizations Immunization Date Immunization Notes Care Provider Fa cili 02-07-2019 influenza, injectabl e, quadrivalent, preservative free Iglesia Polk DO Work Phone: [facility] 02-07-2019 influenza virus vacc ine, unspecified formulation Iglesia Polk DO Work Phone: [facility] 08-04-2018 tetanus toxoid, redu mirella diphtheria toxoid, and acellular pertussis vaccine, adsorbed Delano Camarena MD Work Phone: [facility] 01-15-2017 meningococcal oligosaccharide (groups A, C, Y and W-135) diphtheria toxoid conjugate vaccine (MCV4O) Delano Camarena MD Work Phone: [facility] 04-29-2015 Human Papillomavirus 9-valent vaccine Delano Camarena MD Work Phone: [facility] 12-11-2014 human papilloma viru s vaccine, quadrivalent Delano Camarena MD Work Phone: [facility] Work Phone: 12-11-2014 hepatitis B vaccine, unspecified formulation Brinda Tyson APRN.[employer] Work Phone: [facility] 10-10-2014 human papilloma viru s vaccine, quadrivalent Delano Camarena MD Work Phone: [facility] Work Phone: 12-14-2011 tetanus toxoid, redu mirella diphtheria toxoid, and acellular pertussis vaccine, adsorbed Delano Camarena MD Work Phone: [facility] 07-28-2000 haemophilus influenz ae type b vaccine, PRP-T conjugate Delano Camarena MD Work Phone: [facility] Work Phone: 07-28-2000 measles, mumps and rubella virus vaccine Delano Camarena MD Work Phone: [facility] Work Phone: 07-28-2000 varicella virus vaccine Radha Camarena MD Work Phone: [facility] Work Phone: 04-30-2000 Hepatitis B Ped/Adol (Recombivax HB) Delano Camarena MD Work Phone: [facility] Work Phone: 04-30-2000 hepatitis B vaccine, pediatric or pediatric/adolescent dosage Iglesia Polk DO Work Phone: [facility] 04-30-2000 hepatitis B vaccine, unspecified formulation Iglesia Polk DO Work Phone: [facility] 02-10-2000 diphtheria, tetanus toxoids and acellular pertussis vaccine Delano Camarena MD Work Phone: [facility] Work Phone: 02-10-2000 haemophilus influenz ae type b vaccine, PRP-T conjugate Delano Camarena MD Work Phone: [facility] Work Phone: 02-10-2000 poliovirus vaccine, inactivated Delano Camarena MD Work Phone: [facility] Work Phone: 02-10-2000 poliovirus vaccine, unspecified formulation Neptali Smith MD Work Phone: [facility] 1999 diphtheria, tetanus toxoids and acellular pertussis vaccine Delano Camarena MD Work Phone: [facility] Work Phone: 1999 haemophilus influenz ae type b vaccine, PRP-T conjugate Delano Camarena MD Work Phone: [facility] Work Phone: 1999 Hepatitis B Ped/Adol (Recombivax HB) Delano Camarena MD Work Phone: [facility] Work Phone: 1999 hepatitis B vaccine, pediatric or pediatric/adolescent dosage Iglesia Polk DO Work Phone: [facility] 1999 hepatitis B vaccine, unspecified formulation Iglesia Mittalrolyjillian DO Work Phone: [facility] 1999 poliovirus vaccine, inactivated Delano Camarena MD Work Phone: [facility] Work Phone: 1999 diphtheria, tetanus toxoids and acellular pertussis vaccine Delano Camarena MD Work Phone: [facility] 1999 haemophilus influenz ae type b vaccine, PRP-T conjugate Delano Camarena MD Work Phone: [facility] Work Phone: 1999 Hepatitis B Ped/Adol (Recombivax HB) Delano Camarena MD Work Phone: [facility] Work Phone: 1999 hepatitis B vaccine, pediatric or pediatric/adolescent dosage Iglesia Polk DO Work Phone: [facility] 1999 hepatitis B vaccine, unspecified formulation Iglesia Polk DO Work Phone: [facility] 1999 poliovirus vaccine, inactivated Delano Camarena MD Work Phone: [facility] Work Phone: Payers Date Payer Category Payer Unknown BC[place] - [place] [employer] xxxxxxxxx 2014-Present [address] [place] [address] xxxxxxxxx [id number] 1999 Unknown [id number] 1999 Unknown [id number] 1999 Unknown [id number] 1999 Unknown [id number] 1999 Unknown [id number] 1999 Unknown [id number] 1999 Unknown [id number] 1999 Unknown [id number] 1999 Unknown [id number] 1999 Unknown [id number] 1959 Unknown [id number] Social History Date Type Detail Facility Start: 10-10-2014 End: 04-27-2019 Tobacco smoking status NHIS Never smoker [facility] Start: 10-10-2014 End: 04-27-2019 Tobacco use and exposure Never used [place], [place] Start: 04-27-2019 End: 10-26-2023 Alcohol intake Current non-drinker of alcohol (finding) [facility] Work Phone: Start: 09-16-2018 History SDOH Alcohol Frequency 1 [place] Start: 09-16-2018 History SDOH Social Connections Phone 5 [facility] Work Phone: Start: 09-16-2018 History SDOH Social Connections Membership 2 [place] Start: 09-16-2018 History SDOH Physica l Activity DPW 0 [facility] Work Phone: Start: 2000 Sex Assigned At Not on file [facility] [employer] Work Phone: Start: 11-14-2022 End: 11-24-2022 Exposure to SARS-CoV-2 (event) Not sure [place], [place] Start: 10-24-2020 End: 06-30-2023 Alcohol intake [facility] Start: 2000 Sex Assigned At Female C [facility] Work Phone: Start: 12-01-2022 End: 06-30-2023 Tobacco use panel [facility] Adult Depression Screening Assessment 2 [facility] Start: 05-22-2019 Gender identity Identifies as female gender (finding) [facility] Work Phone: Start: 05-22-2019 Sexual orientation Heterosexual (fin jayson) [facility] Work Phone: Are you now , , , , never or living with a partner? Never [facility] How often to you hav e a drink containing alcohol? Never [facility] How hard is it for y ou to pay for the very basics like food, housing, medical care, and heating Not very hard [facility] Do you feel stress - tense, restless, nervous, or anxious, or unable to sleep at night because your mind is troubled all the time - these days [OSQ] Rather much [facility] (I/We) worried wheth er (my/our) food would run out before (I/we) got money to buy more. Never true [facility] In the past 12 month s, was there a time when you were not able to pay the mortgage or rent on time? Yes [facility] At any time in the p ast 12 months, were you homeless or living in snf [including now]? No [facility] Clinical Notes 04-04-2019 to 02-15-2024 Nan Fonseca MD - 02/15/2024 9:58 AM Nan Ward MD - 02/15/2024 9:08 AM Nan Ward MD - 02/15/2024 9:08 AM Radha Garrett APRN.[facility] - 01/06/2024 2:10 PM EDT Note Date & Type Note Facility 02-15-2024 History of Present illness Narrative Jazmin Howard is a 23 year old female who presents for problem visit for AUZB. HPI: 23 YOF w/ longstanding h/o AUB, dysmenorrhea. Not sexually active currently. Was on pills before. Now has migraines w/ aura. Tried IUD and it expelled same day. Was really painful. Recent US shows arcuate vs bicornuate uterus OB History T0 L0 SAB0 IAB0 Ectopic0 Multiple0 Live Births0 [employer] History LMP: 12/27/2023, Having periods Age at Menarche: Age at First : Age at Menopause: [employer] History Comments: Sexual Activity: Not Currently; Male Contraception: No contraception data on record PAST MEDICAL HISTORY Diagnosis Date Acid reflux Depression Dislocation of the knee cap bilat- most recent left 02/2024 History of elbow surgery 05/03/2011 Mood disorder (HCC) Patellar instability PAST SURGICAL HISTORY Procedure Laterality Date ELBOW SURGERY HX 7th grade right elbow [employer] CHOLECYSTECTOMY 2021 NASAL ENDOS,DIAG,UNI/ BILATERAL TONSILLECTOMY & ADENOIDECTOMY <AGE 11 FAMILY HISTORY Problem Relation Age of Onset Hypertension Mother Colon Cancer Father Hypertension Maternal Grandmother Heart Maternal Grandmother Hypertension Maternal Grandfather Heart Maternal Grandfather Social History Tobacco Use Smoking status: Never Smokeless tobacco: Never Vaping Use Vaping status: Never Used Substance Use Topics Alcohol use: No Drug use: No Current Outpatient Medications Medication Sig AIMOVIG AUTOINJECTOR 140 mg/mL auto-injector citalopram hydrobromide (CELEXA) 10 mg tablet Take 10 mg by mouth every morning. clonazePAM (KLONOPIN) 0.5 mg tablet TAKE 1 TAB BY MOUTH ONCE A DAY NEEDED FOR PANIC ATTACKS lamoTRIgine (LAMICTAL) 100 mg tablet Take 2 tablets by mouth once daily. esomeprazole magnesium (NEXIUM ORAL) Take 20 mg by mouth once daily. drospirenone, contraceptive, (SLYND) 4 mg (28) tabet Take 1 tablet by mouth once daily. No current facility-administered medications for this visit. Allergies As of Date: 02/15/2024 Allergen Noted Reaction ADHESIVE TAPE-SILICONES 04/17/2022 Hives BENADRYL [DIPHENHYDRAMINE] 09/04/2023 Other: See Comments LACTOSE 10/10/2014 Diarrhea MOBIC [MELOXICAM] 09/04/2023 Anaphylaxis Fully Assessed 02/15/2024 . Expanded ROS: N/A Allergies and current medication updated:Yes SENSITIVE EXAM: Sensitive exam not performed. EXAM: BP 124/86 Pulse 81 Resp 16 Ht 5' 6 (1.68m) Wt 270 lb (122.5kg) SpO2 99% LMP 12/27/2023 BMI 43.60 kg/(m^2). GENERAL: pleasant, female in no apparent distress ASSESSMENT AND PLAN: Assessment & Plan Bicornate uterus Iron deficiency anemia due to chronic blood loss Dysmenorrhea Abnormal uterine bleeding (AUB) Endometrial polyp r/b/a to hysteroscopy D&C w/ polyp resection reviewed, queswtions answered, she desires to pro ceed not combined hormonal contraceptive candidate due to migraine w/ aura not IUD candidate due to bicornuate uterus and failed this in past. Concern about depo nad nexplanon w/ AUB, appetite activation. Trial slynd. d/w her may not be as effective for her for contraception and recommend condoms if sexually active w/ male partner for back up contraception. Questions answered. She agrees w/ plan cont. ffe for fe deficiency. recheck 3 months. Nan Fonseca MD documented in this encounter [facility] 02-15-2024 Note HNO ID: [id number] Author: NAN FONSECA MD Service: ? Author Type: Physician Type: Progress Notes Filed: 02/15/2024 12:43 Note Text: Jazmin Howard is a 23 year old female who presents for problem visit for AUZB. HPI: 23 YOF w/ longstanding h/o AUB, dysmenorrhea. Not sexually active currently. Was on pills before. Now has migraines w/ aura. Tried IUD and it expelled same day. Was really painful. Recent US shows arcuate vs bicornuate uterus OB History T0 L0 SAB0 IAB0 Ectopic0 Multiple0 Live Births0 [employer] History LMP: 12/27/2023, Having periods Age at Menarche: Age at First : Age at Menopause: [employer] History Comments: Sexual Activity: Not Currently; Male Contraception: No contraception data on record PAST MEDICAL HISTORY Diagnosis Date Acid reflux Depression Dislocation of the knee cap bilat- most recent left 02/2024 History of elbow surgery 05/03/2011 Mood disorder (HCC) Patellar instability PAST SURGICAL HISTORY Procedure Laterality Date ELBOW SURGERY HX 7th grade right elbow L'[employer] CHOLECYSTECTOMY 2021 NASAL ENDOS,DIAG,UNI/ BILATERAL TONSILLECTOMY AND ADENOIDECTOMY FAMILY HISTORY Problem Relation Age of Onset Hypertension Mother Colon Cancer Father Hypertension Maternal Grandmother Heart Maternal Grandmother Hypertension Maternal Grandfather Heart Maternal Grandfather Social History Tobacco Use Smoking status: Never Smokeless tobacco: Never Vaping Use Vaping status: Never Used Substance Use Topics Alcohol use: No Drug use: No Current Outpatient Medications Medication Sig AIMOVIG AUTOINJECTOR 140 mg/mL auto-injector citalopram hydrobromide (CELEXA) 10 mg tablet Take 10 mg by mouth every morning. clonazePAM (KLONOPIN) 0.5 mg tablet TAKE 1 TAB BY MOUTH ONCE A DAY NEEDED FOR PANIC ATTACKS lamoTRIgine (LAMICTAL) 100 mg tablet Take 2 tablets by mouth once daily. esomeprazole magnesium (NEXIUM ORAL) Take 20 mg by mouth once daily. drospirenone, contraceptive, (SLYND) 4 mg (28) tabet Take 1 tablet by mouth once daily. No current facility-administered medications for this visit. Allergies As of Date: 02/15/2024 Allergen Noted Reaction ADHESIVE TAPE-SILICONES 04/17/2022 Hives BENADRYL [DIPHENHYDRAMINE] 09/04/2023 Other: See Comments LACTOSE 10/10/2014 Diarrhea MOBIC [MELOXICAM] 09/04/2023 Anaphylaxis Fully Assessed 02/15/2024 . Expanded ROS: N/A Allergies and current medication updated:Yes SENSITIVE EXAM: Sensitive exam not performed. EXAM: BP 124/86 Pulse 81 Resp 16 Ht 5' 6 (1.68m) Wt 270 lb (122.5kg) SpO2 99% LMP 12/27/2023 BMI 43.60 kg/(m2). GENERAL: pleasant, female in no apparent distress ASSESSMENT AND PLAN: Assessment AND Plan Bicornate uterus Iron deficiency anemia due to chronic blood loss Dysmenorrhea Abnormal uterine bleeding (AUB) Endometrial polyp r/b/a to hysteroscopy [facility] w/ polyp resection reviewed, queswtions answered, she desires to pro ceed not combined hormonal contraceptive candidate due to migraine w/ aura not IUD candidate due to bicornuate uterus and failed this in past. Concern about depo nad nexplanon w/ AUB, appetite activation. Trial slynd. d/w her may not be as effective for her for contraception and recommend condoms if sexually active w/ male partner for back up contraception. Questions answered. She agrees w/ plan cont. ffe for fe deficiency. recheck 3 months. Nan Fonseca MD [facility] 02-15-2024 History and physical note Pre-Op History and Physical HPI: The patient is a 23 year old female presenting for pre-operative visit. She is scheduled for Hysteroscopy D&C, possible polypectomy for aub and endometrial polyp on 02/24/24. Procedure discussed along with risks, benefits and complications. Other alternatives discussed for management. Consent form signed? Yes. PAST MEDICAL HISTORY Diagnosis Date Acid reflux Depression Dislocation of the knee cap bilat- most recent left 02/2024 History of elbow surgery 05/03/2011 Mood disorder (HCC) Patellar instability PAST SURGICAL HISTORY Procedure Laterality Date ELBOW SURGERY HX 7th grade right elbow L'SCOPE CHOLECYSTECTOMY 2021 NASAL ENDOS,DIAG,UNI/ BILATERAL TONSILLECTOMY & ADENOIDECTOMY Current Outpatient Medications Medication Sig Dispense Refill AIMOVIG AUTOINJECTOR 140 mg/mL auto-injector citalopram hydrobromide (CELEXA) 10 mg tablet Take 10 mg by mouth every morning. clonazePAM (KLONOPIN) 0.5 mg tablet TAKE 1 TAB BY MOUTH ONCE A DAY NEEDED FOR PANIC ATTACKS norethindrone (AYGESTIN) 5 mg tablet Take 1 tablet TID until bleeding stops, the BID x 3 days, the daily x 3 days. 35 tablet 0 lamoTRIgine (LAMICTAL) 100 mg tablet Take 2 tablets by mouth once daily. 90 tablet 0 esomeprazole magnesium (NEXIUM ORAL) Take 20 mg by mouth once daily. No current facility-administered medications for this visit. ALLERGIES: Adhesive Tape-Silicones, Benadryl [Diphenhydramine], Lactose, and Mobic [Meloxicam] PERSONAL HISTORY: Social History Tobacco Use Smoking status: Never Smokeless tobacco: Never Vaping Use Vaping status: Never Used Substance Use Topics Alcohol use: No Drug use: No FAMILY HISTORY: FAMILY HISTORY Problem Relation Age of Onset Hypertension Mother Colon Cancer Father Hypertension Maternal Grandmother Heart Maternal Grandmother Hypertension Maternal Grandfather Heart Maternal Grandfather REVIEW OF SYMPTOMS: GENERAL: denies fevers or chills ENDOCRINOLOGY: has not been on steroids Cardiology : denies palpitations or chest pain Respiratory: denies SOB or cough Hematology: denies history of prolonged bleeding or easy bruising or VTE Allergy: Denies history of personal or family history of allergy to anesthesia PHYSICAL EXAMINATION: VITALS: Blood pressure 124/86, pulse 81, resp. rate 16, height 167.6 cm (5' 6 ), weight 122.5 kg (270 lb), last menstrual period 12/27/2023, SpO2 99%. GENERAL: The patient is well nourished, well hydrated in no acute distress. , The patient is oriented to time, place, and person. NECK: Supple. No lynphadenopathy, normal thyroid, no thyromegaly. LUNGS: Clear to auscultation bilaterally. no wheezes, rhonchi or rales HEART: Regular rate and rhythm, Normal heart sounds, and No murmurs or gallops Reviewed pelvic US nad labs IMPRESSION: iron def anemia of chronic blood loss, AUB, endometrial polyp, bicornuate uterus PLAN: The risks/benefits/alternatives and personal involved for the planned hysteroscopy D&C w/ possible polyp resection were reviewed with the patient. Her questions were answered to her satisfaction and she desires to proceed. Consent was signed. I reviewed with her postop instructions and expectations. I have reviewed and updated past medical and surgical history, medications and allergies Nan Fonseca M.D. [facility] 02-15-2024 History and physical note Pre-Op History and Physical HPI: The patient is a 23 year old female presenting for pre-operative visit. She is scheduled for Hysteroscopy D&C, possible polypectomy for aub and endometrial polyp on 02/24/24. Procedure discussed along with risks, benefits and complications. Other alternatives discussed for management. Consent form signed? Yes. PAST MEDICAL HISTORY Diagnosis Date Acid reflux Depression Dislocation of the knee cap bilat- most recent left 02/2024 History of elbow surgery 05/03/2011 Mood disorder (HCC) Patellar instability PAST SURGICAL HISTORY Procedure Laterality Date ELBOW SURGERY HX 7th grade right elbow L'SCOPE CHOLECYSTECTOMY 2021 NASAL ENDOS,DIAG,UNI/ BILATERAL TONSILLECTOMY & ADENOIDECTOMY <AGE 11 Current Outpatient Medications Medication Sig Dispense Refill AIMOVIG AUTOINJECTOR 140 mg/mL auto-injector citalopram hydrobromide (CELEXA) 10 mg tablet Take 10 mg by mouth every morning. clonazePAM (KLONOPIN) 0.5 mg tablet TAKE 1 TAB BY MOUTH ONCE A DAY NEEDED FOR PANIC ATTACKS norethindrone (AYGESTIN) 5 mg tablet Take 1 tablet TID until bleeding stops, the BID x 3 days, the daily x 3 days. 35 tablet 0 lamoTRIgine (LAMICTAL) 100 mg tablet Take 2 tablets by mouth once daily. 90 tablet 0 esomeprazole magnesium (NEXIUM ORAL) Take 20 mg by mouth once daily. No current facility-administered medications for this visit. ALLERGIES: Adhesive Tape-Silicones, Benadryl [Diphenhydramine], Lactose, and Mobic [Meloxicam] PERSONAL HISTORY: Social History Tobacco Use Smoking status: Never Smokeless tobacco: Never Vaping Use Vaping status: Never Used Substance Use Topics Alcohol use: No Drug use: No FAMILY HISTORY: FAMILY HISTORY Problem Relation Age of Onset Hypertension Mother Colon Cancer Father Hypertension Maternal Grandmother Heart Maternal Grandmother Hypertension Maternal Grandfather Heart Maternal Grandfather REVIEW OF SYMPTOMS: GENERAL: denies fevers or chills ENDOCRINOLOGY: has not been on steroids Cardiology : denies palpitations or chest pain Respiratory: denies SOB or cough Hematology: denies history of prolonged bleeding or easy bruising or VTE Allergy: Denies history of personal or family history of allergy to anesthesia PHYSICAL EXAMINATION: VITALS: Blood pressure 124/86, pulse 81, resp. rate 16, height 167.6 cm (5' 6 ), weight 122.5 kg (270 lb), last menstrual period 12/27/2023, SpO2 99%. GENERAL: The patient is well nourished, well hydrated in no acute distress. , The patient is oriented to time, place, and person. NECK: Supple. No lynphadenopathy, normal thyroid, no thyromegaly. LUNGS: Clear to auscultation bilaterally. no wheezes, rhonchi or rales HEART: Regular rate and rhythm, Normal heart sounds, and No murmurs or gallops Reviewed pelvic US nad labs IMPRESSION: iron def anemia of chronic blood loss, AUB, endometrial polyp, bicornuate uterus PLAN: The risks/benefits/alternatives and personal involved for the planned hysteroscopy D&C w/ possible polyp resection were reviewed with the patient. Her questions were answered to her satisfaction and she desires to proceed. Consent was signed. I reviewed with her postop instructions and expectations. I have reviewed and updated past medical and surgical history, medications and allergies Nan Fonseca M.D. documented in this encounter [facility] 02-03-2024 Telephone encounter Note Just FYI, it looks like pt agreeable to be evaluated at [facility] 02-03-2024 Miscellaneous Notes Just FYI, it looks like pt agreeable to be evaluated at S: Patient spoke with [facility] nurse regarding knee injury B: Onset of symptoms/concern 3 weeks A: Pt reports she works at the [employer] and reports on of the kids ran into her at the back and her knee stayed straight and the rest of her body turned and she heard a pop. Reports the knee swelled up, got better some and then and it progressively has gotten worse- Knee swollen into calf, about twice the size of the other knee. Pain with walking 4-5/10, if stays bent or going up stairs hurts bad 6/10 and after being on it at night 8/10. R: CAC nurse unable to find available appt in office. Referred patient to to be evaluated today. Patient verbalized understanding and agreement. Reason for Disposition A 'snap' or 'pop' was heard at the time of injury Protocols used: Knee Ibbeng-XZMER-QI documented in this encounter [facility] 02-03-2024 Telephone encounter Note S: Patient spoke with CAC nurse regarding knee injury B: Onset of symptoms/concern 3 weeks A: Pt reports she works at the [employer] and reports on of the kids ran into her at the back and her knee stayed straight and the rest of her body turned and she heard a pop. Reports the knee swelled up, got better some and then and it progressively has gotten worse- Knee swollen into calf, about twice the size of the other knee. Pain with walking 4-5/10, if stays bent or going up stairs hurts bad 6/10 and after being on it at night 8/10. R: CAC nurse unable to find available appt in office. Referred patient to to be evaluated today. Patient verbalized understanding and agreement. Reason for Disposition A 'snap' or 'pop' was heard at the time of injury Protocols used: Knee Iiwlym-IJHUF-NV [facility] 01-27-2024 Telephone encounter Note Patient states that she wants to keep her surgery on 02/24/24 [facility] 01-27-2024 Miscellaneous Notes Patient states that she wants to keep her surgery on 02/24/24 Patient called back again. She can not do the 02/23 surgery date. Her employer will not give her time off then. Needs to be after Mar 03. Patient has a Pre Op on 02/13 if this will be within 30 days of surgery. Socorro Salamanca RN Patient called. She has to be out of town on Mar 04, so longer wants Mar 03. She would like surgery either sooner or later than this date. Message given to occasional caregiver. Socorro Salamanca RN Patient states she was scheduled for Mar 03 for her Hysteroscopy. States that she offered a sooner date. Calling today because she would like the sooner date. Message given to occasional caregiver. Socorro Salamanca RN documented in this encounter [facility] 01-24-2024 Telephone encounter Note Patient called back again. She can not do the 02/23 surgery date. Her employer will not give her time off then. Needs to be after Mar 03. Patient has a Pre Op on 02/13 if this will be within 30 days of surgery. Socorro Salamanca RN [facility] 01-24-2024 Telephone encounter Note Patient called. She has to be out of town on Mar 04, so longer wants Mar 03. She would like surgery either sooner or later than this date. Message given to occasional caregiver. Socorro Salamanca RN [facility] 01-18-2024 Telephone encounter Note Patient states she was scheduled for Mar 03 for her Hysteroscopy. States that she offered a sooner date. Calling today because she would like the sooner date. Message given to occasional caregiver. Socorro Salamanca RN [facility] 01-06-2024 Note HNO ID: [id number] Author: RADHA MELENDEZ APRN.GAUGE AND INSTRUMENT INSPECTOR Service: ? Author Type: Nurse Practitioner Type: Progress Notes Filed: 01/06/2024 14:36 Note Text: Jazmin Howard is a 23 year old female who presents for problem visit irregular bleeding for 3 week(s). HPI: pt was having some bleeding prior to the pelvic ultrasound, but since she has had daily bleeding ranging from normal flow to light. During the ultrasound the patient states that she had severe and actually had to stop before she could continue. After the ultrasound is when the bleeding had picked up. She also had questions regarding a hysteroscopy polypectomy. Her questions were answered to her satisfaction. OB History T0 L0 SAB0 IAB0 Ectopic0 Multiple0 Live Births0 Sports Complex Attendant History LMP: 07/02/2023 (Approximate), Having periods Age at Menarche: Age at First : Age at Menopause: Sports Complex Attendant History Comments: Sexual Activity: Yes; Male Contraception: No contraception data on record PAST MEDICAL HISTORY No date: Acid reflux No date: Depression 05/03/2011: History of elbow surgery No date: Mood disorder (HCC) PAST SURGICAL HISTORY 7th grade: ELBOW SURGERY HX Comment: right elbow 2021: L'SCOPE CHOLECYSTECTOMY FAMILY HISTORY Problem Relation Age of Onset Hypertension Mother Colon Cancer Father Hypertension Maternal Grandmother Heart Maternal Grandmother Hypertension Maternal Grandfather Heart Maternal Grandfather Social History Tobacco Use Smoking status: Never Smokeless tobacco: Never Vaping Use Vaping status: Never Used Substance Use Topics Alcohol use: No Drug use: No Current Outpatient Medications Medication Sig lamoTRIgine (LAMICTAL) 100 mg tablet Take 2 tablets by mouth once daily. esomeprazole magnesium (NEXIUM ORAL) Take 20 mg by mouth once daily. sertraline (ZOLOFT) 25 mg tablet TAKE 1AND1/2 TABLETS BY MOUTH DAILY No current facility-administered medications for this visit. Allergies As of Date: 01/06/2024 Allergen Noted Reaction BENADRYL [DIPHENHYDRAMINE] 09/04/2023 Other: See Comments LACTOSE 10/10/2014 Diarrhea MOBIC [MELOXICAM] 09/04/2023 Anaphylaxis Fully Assessed 10/08/2023 REVIEW OF SYSTEMS Expanded ROS: N/A Allergies and current medication updated:Yes EXAM: LMP 07/02/2023 GENERAL: pleasant, female in no apparent distress HEENT: Normocephalic, atraumatic, mucus membranes moist, and no lesions CHEST: Normal inspiratory effort NEURO: alert and oriented x3,exam grossly non-focal EXTREMITIES: normal ASSESSMENT/PLAN: 1. Irregular menstrual cycle - ICD9: 626.4, ICD10: N92.6 Will notify patient of test results. - COMPLETE BLOOD COUNT AND DIFFERENTIAL - IRON AND TIBC - NORETHINDRONE ACETATE 5 MG TABLET Radha Melendez, PHI.GAUGE AND INSTRUMENT INSPECTOR Medical Decision Making: Problems: Low: Acute, uncomplicated illness or injury Data: Unique test(s) ordered: 2 Risk: Moderate: Drug management Medical Decision Making Level: 3 - Low [facility] 01-06-2024 History of Present illness Narrative Jazmin Howard is a 23 year old female who presents for problem visit irregular bleeding for 3 week(s). HPI: pt was having some bleeding prior to the pelvic ultrasound, but since she has had daily bleeding ranging from normal flow to light. During the ultrasound the patient states that she had severe and actually had to stop before she could continue. After the ultrasound is when the bleeding had picked up. She also had questions regarding a hysteroscopy polypectomy. Her questions were answered to her satisfaction. OB History T0 L0 SAB0 IAB0 Ectopic0 Multiple0 Live Births0 Sports Complex Attendant History LMP: 07/02/2023 (Approximate), Having periods Age at Menarche: Age at First : Age at Menopause: Sports Complex Attendant History Comments: Sexual Activity: Yes; Male Contraception: No contraception data on record PAST MEDICAL HISTORY No date: Acid reflux No date: Depression 05/03/2011: History of elbow surgery No date: Mood disorder (HCC) PAST SURGICAL HISTORY 7th grade: ELBOW SURGERY HX Comment: right elbow 2021: L'SCOPE CHOLECYSTECTOMY FAMILY HISTORY Problem Relation Age of Onset Hypertension Mother Colon Cancer Father Hypertension Maternal Grandmother Heart Maternal Grandmother Hypertension Maternal Grandfather Heart Maternal Grandfather Social History Tobacco Use Smoking status: Never Smokeless tobacco: Never Vaping Use Vaping status: Never Used Substance Use Topics Alcohol use: No Drug use: No Current Outpatient Medications Medication Sig lamoTRIgine (LAMICTAL) 100 mg tablet Take 2 tablets by mouth once daily. esomeprazole magnesium (NEXIUM ORAL) Take 20 mg by mouth once daily. sertraline (ZOLOFT) 25 mg tablet TAKE 1&1/2 TABLETS BY MOUTH DAILY No current facility-administered medications for this visit. Allergies As of Date: 01/06/2024 Allergen Noted Reaction BENADRYL [DIPHENHYDRAMINE] 09/04/2023 Other: See Comments LACTOSE 10/10/2014 Diarrhea MOBIC [MELOXICAM] 09/04/2023 Anaphylaxis Fully Assessed 10/08/2023 REVIEW OF SYSTEMS Expanded ROS: N/A Allergies and current medication updated:Yes EXAM: LMP 07/02/2023 GENERAL: pleasant, female in no apparent distress HEENT: Normocephalic, atraumatic, mucus membranes moist, and no lesions CHEST: Normal inspiratory effort NEURO: alert and oriented x3,exam grossly non-focal EXTREMITIES: normal ASSESSMENT/PLAN: 1. Irregular menstrual cycle - ICD9: 626.4, ICD10: N92.6 Will notify patient of test results. - COMPLETE BLOOD COUNT AND DIFFERENTIAL - IRON AND TIBC - NORETHINDRONE ACETATE 5 MG TABLET Radha Melendez APRN.GAUGE AND INSTRUMENT INSPECTOR Medical Decision Making: Problems: Low: Acute, uncomplicated illness or injury Data: Unique test(s) ordered: 2 Risk: Moderate: Drug management Medical Decision Making Level: 3 - Low documented in this encounter [facility] 12-30-2023 Telephone encounter Note Patient notified and agreeable to surgery. No provider preference. Aware occasional caregiver will be in contact with the next available dates for surgery. Socorro Salamanca RN [facility] 12-30-2023 Miscellaneous Notes Patient notified and agreeable to surgery. No provider preference. Aware occasional caregiver will be in contact with the next available dates for surgery. Socorro Salamanca RN Please let the patient know that her ultrasound shows a possible uterine polyp which is the likely reason for the spotting that she is experiencing. Recommendations would be to have a hysteroscopy polypectomy and further evaluation of the uterus. Surgery sheet filled out and placed in schedulers box. Radha Melendez APRN.CNP documented in this encounter [facility] 12-30-2023 Telephone encounter Note Please let the patient know that her ultrasound shows a possible uterine polyp which is the likely reason for the spotting that she is experiencing. Recommendations would be to have a hysteroscopy polypectomy and further evaluation of the uterus. Surgery sheet filled out and placed in schedulers box. Radha Melendez APRN.CNP [facility] 12-26-2023 History of Present illness Narrative Radiology Service Progress Note PATIENT NAME: Jazmin Howard DATE OF SERVICE: December 26, 2023 TIME: 8:40 AM PATIENT IDENTITY VERIFICATION COMPLETED USING TWO (2) IDENTIFIERS: Name and Date of confirmed by patient verbally. FALL SCREENING: Has the patient had 2 falls in the last year or 1 fall with injury or currently using an Ambulatory Assistive Device (Walker, Cane, Wheelchair, Crutches, etc.)? No PATIENT GENDER DATA: Female. status: : No status: NO. PATIENT RELEVANT IMPLANT DATA REVIEWED: Not Applicable PATIENT PRESENTS WITH AN IMPLANTABLE OR ATTACHED INSTRUMENT ENGINEER: na RADIOLOGY DEPARTMENT: Ultrasound PERIPHERAL IV DATA: Not applicable SIGNED BY: Betty Lester RDMS December 26, 2023 8:40 AM documented in this encounter [facility] 12-26-2023 Note HNO ID: [id number] Author: BETTY LESTER RDMS Service: ? Author Type: Voip Engineer Type: Progress Notes Filed: 12/26/2023 08:41 Note Text: Radiology Service Progress Note PATIENT NAME: Jazmin Howard DATE OF SERVICE: December 26, 2023 TIME: 8:40 AM PATIENT IDENTITY VERIFICATION COMPLETED USING TWO (2) IDENTIFIERS: Name and Date of confirmed by patient verbally. FALL SCREENING: Has the patient had 2 falls in the last year or 1 fall with injury or currently using an Ambulatory Assistive Device (Walker, Cane, Wheelchair, Crutches, etc.)? No PATIENT GENDER DATA: Female. status: : No status: NO. PATIENT RELEVANT IMPLANT DATA REVIEWED: Not Applicable PATIENT PRESENTS WITH AN IMPLANTABLE OR ATTACHED INSTRUMENT ENGINEER: na RADIOLOGY DEPARTMENT: Ultrasound PERIPHERAL IV DATA: Not applicable SIGNED BY: Betty Lester RDMS December 26, 2023 8:40 AM [facility] 11-01-2023 Telephone encounter Note S: Patient spoke with CAC nurse regarding lab results B: had labs done 2-3 weeks ago via [facility] in [place] See my chart message from 10/26 A: Patient states psychiatrist sent her for labs recently and told her to follow up with PCP about anemia/iron deficiency. Patient sent my chart message to PCP, but believes PCP reviewed labs from 09/03 not the newest. This nurse unable to find more recent CBC. R: patient encouraged to call lab and have results faxed to office so PCP can review most recent. Patient is agreeable. Fax number provided. TE sent to office for review and follow up. Reason for Disposition Lab result questions Caller requesting routine or non-urgent lab result Protocols used: Information Only Call - No [id number]-[id number], PCP Call - No [id number] [facility] 11-01-2023 Miscellaneous Notes S: Patient spoke with CAC nurse regarding lab results B: had labs done 2-3 weeks ago via [facility] in [place] See my chart message from 10/26 A: Patient states psychiatrist sent her for labs recently and told her to follow up with PCP about anemia/iron deficiency. Patient sent my chart message to PCP, but believes PCP reviewed labs from 09/03 not the newest. This nurse unable to find more recent CBC. R: patient encouraged to call lab and have results faxed to office so PCP can review most recent. Patient is agreeable. Fax number provided. TE sent to office for review and follow up. Reason for Disposition Lab result questions Caller requesting routine or non-urgent lab result Protocols used: Information Only Call - No [id number]-SQGLS-BJ, PCP Call - No Ybghci-TGVGL-TP documented in this encounter [facility] 10-08-2023 Note HNO ID: [id number] Author: RADHA MELENDEZ APRN.GAUGE AND INSTRUMENT INSPECTOR Service: ? Author Type: Nurse Practitioner Type: Progress Notes Filed: 10/08/2023 15:28 Note Text: Retail Business Development Manager offered: Patient declines. Jazmin Howard is a 23 year old female who presents for problem visit irregular menses for 4 month(s). HPI: Jun heavy bleeding for 7 days stopped for 7 days then another 7 days of heavy bleeding. No menses since. This week very like pink spotting only when wiping. Denies any abdominal pain or cramping. OB History T0 L0 SAB0 IAB0 Ectopic0 Multiple0 Live Births0 Sports Complex Attendant History LMP: 07/02/2023 (Approximate), Having periods Age at Menarche: Age at First : Age at Menopause: Sports Complex Attendant History Comments: Sexual Activity: Yes; Male Contraception: No contraception data on record PAST MEDICAL HISTORY Diagnosis Date Acid reflux Depression History of elbow surgery 05/03/2011 Mood disorder (HCC) PAST SURGICAL HISTORY Procedure Laterality Date ELBOW SURGERY HX 7th grade right elbow L'SCOPE CHOLECYSTECTOMY 2021 FAMILY HISTORY Problem Relation Age of Onset Hypertension Mother Colon Cancer Father Hypertension Maternal Grandmother Heart Maternal Grandmother Hypertension Maternal Grandfather Heart Maternal Grandfather Social History Tobacco Use Smoking status: Never Smokeless tobacco: Never Vaping Use Vaping Use: Never used Substance Use Topics Alcohol use: No Drug use: No Current Outpatient Medications Medication Sig esomeprazole magnesium (NEXIUM ORAL) Take 20 mg by mouth once daily. sertraline (ZOLOFT) 25 mg tablet TAKE 1AND1/2 TABLETS BY MOUTH DAILY lamoTRIgine (LAMICTAL) 100 mg tablet Take 1 tablet by mouth once daily. lamoTRIgine (LAMICTAL) 25 mg tablet TAKE 1 TABLET BY MOUTH EVERY DAY IN ADDITION TO TH 100MG No current facility-administered medications for this visit. Allergies As of Date: 10/08/2023 Allergen Noted Reaction BENADRYL [DIPHENHYDRAMINE] 09/04/2023 Other: See Comments LACTOSE 10/10/2014 Diarrhea MOBIC [MELOXICAM] 09/04/2023 Anaphylaxis Fully Assessed 10/08/2023 REVIEW OF SYSTEMS Abdomen: No bloating, early satiety, indigestion, or increased flatulence. No abdominal pain, nausea, vomiting, diarrhea, or constipation. Bladder: No dysuria, gross hematuria, urinary frequency, urinary urgency, or incontinence. Expanded ROS: N/A Allergies and current medication updated:Yes EXAM: Wt 272 lb 6.4 oz (123.6kg) LMP 07/02/2023 GENERAL: pleasant, female in no apparent distress HEENT: Normocephalic, atraumatic, mucus membranes moist, and no lesions CHEST: Normal inspiratory effort NEURO: alert and oriented x3,exam grossly non-focal EXTREMITIES: normal ASSESSMENT/PLAN: 1. Irregular menstrual cycle - ICD9: 626.4, ICD10: N92.6 Will notify patient of test results. - THYROID STIMULATING HORMONE - PROLACTIN - TESTOSTERONE, FREE AND TOTAL - DHEA-S BLD - HYDROXYPROGESTERONE-17 - FOLLICLE STIMULATING HORMONE - LUTEINIZING HORMONE - ESTRADIOL-17B BLD - HEMOGLOBIN A1C - US FEMALE PELVIS TRANSVAG Radha Melendez APRN.MALU Medical Decision Making: Problems: Moderate: New problem with uncertain prognosis Data: Unique test(s) ordered: 3+ Risk: Low: Low risk from testing/treatment Medical Decision Making Level: 4 - Moderate [facility] 10-08-2023 History of Present illness Narrative Retail Business Development Manager offered: Patient declines. Jazmin Howard is a 23 year old female who presents for problem visit irregular menses for 4 month(s). HPI: Jun heavy bleeding for 7 days stopped for 7 days then another 7 days of heavy bleeding. No menses since. This week very like pink spotting only when wiping. Denies any abdominal pain or cramping. OB History T0 L0 SAB0 IAB0 Ectopic0 Multiple0 Live Births0 Sports Complex Attendant History LMP: 07/02/2023 (Approximate), Having periods Age at Menarche: Age at First : Age at Menopause: Sports Complex Attendant History Comments: Sexual Activity: Yes; Male Contraception: No contraception data on record PAST MEDICAL HISTORY Diagnosis Date Acid reflux Depression History of elbow surgery 05/03/2011 Mood disorder (HCC) PAST SURGICAL HISTORY Procedure Laterality Date ELBOW SURGERY HX 7th grade right elbow L'SCOPE CHOLECYSTECTOMY 2021 FAMILY HISTORY Problem Relation Age of Onset Hypertension Mother Colon Cancer Father Hypertension Maternal Grandmother Heart Maternal Grandmother Hypertension Maternal Grandfather Heart Maternal Grandfather Social History Tobacco Use Smoking status: Never Smokeless tobacco: Never Vaping Use Vaping Use: Never used Substance Use Topics Alcohol use: No Drug use: No Current Outpatient Medications Medication Sig esomeprazole magnesium (NEXIUM ORAL) Take 20 mg by mouth once daily. sertraline (ZOLOFT) 25 mg tablet TAKE 1&1/2 TABLETS BY MOUTH DAILY lamoTRIgine (LAMICTAL) 100 mg tablet Take 1 tablet by mouth once daily. lamoTRIgine (LAMICTAL) 25 mg tablet TAKE 1 TABLET BY MOUTH EVERY DAY IN ADDITION TO TH 100MG No current facility-administered medications for this visit. Allergies As of Date: 10/08/2023 Allergen Noted Reaction BENADRYL [DIPHENHYDRAMINE] 09/04/2023 Other: See Comments LACTOSE 10/10/2014 Diarrhea MOBIC [MELOXICAM] 09/04/2023 Anaphylaxis Fully Assessed 10/08/2023 REVIEW OF SYSTEMS Abdomen: No bloating, early satiety, indigestion, or increased flatulence. No abdominal pain, nausea, vomiting, diarrhea, or constipation. Bladder: No dysuria, gross hematuria, urinary frequency, urinary urgency, or incontinence. Expanded ROS: N/A Allergies and current medication updated:Yes EXAM: Wt 272 lb 6.4 oz (123.6kg) LMP 07/02/2023 GENERAL: pleasant, female in no apparent distress HEENT: Normocephalic, atraumatic, mucus membranes moist, and no lesions CHEST: Normal inspiratory effort NEURO: alert and oriented x3,exam grossly non-focal EXTREMITIES: normal ASSESSMENT/PLAN: 1. Irregular menstrual cycle - ICD9: 626.4, ICD10: N92.6 Will notify patient of test results. - THYROID STIMULATING HORMONE - PROLACTIN - TESTOSTERONE, FREE AND TOTAL - DHEA-S BLD - HYDROXYPROGESTERONE-17 - FOLLICLE STIMULATING HORMONE - LUTEINIZING HORMONE - ESTRADIOL-17B BLD - HEMOGLOBIN A1C - US FEMALE PELVIS TRANSVAG Radha Melendez APRN.CNP Medical Decision Making: Problems: Moderate: New problem with uncertain prognosis Data: Unique test(s) ordered: 3+ Risk: Low: Low risk from testing/treatment Medical Decision Making Level: 4 - Moderate documented in this encounter [facility] 09-16-2023 Note HNO ID: [id number] Author: ADELA LAO RT(R) Service: Radiology Author Type: Technologist Type: Progress Notes Filed: 09/16/2023 15:32 Note Text: Radiology Service Progress Note PATIENT NAME: Jazmin Howard DATE OF SERVICE: September 16, 2023 TIME: 3:32 PM PATIENT IDENTITY VERIFICATION COMPLETED USING TWO (2) IDENTIFIERS: Name and Date of confirmed by patient verbally. FALL SCREENING: Has the patient had 2 falls in the last year or 1 fall with injury or currently using an Ambulatory Assistive Device (Walker, Cane, Wheelchair, Crutches, etc.)? No PATIENT GENDER DATA: Female. status: : No status: NO. PATIENT RELEVANT IMPLANT DATA REVIEWED: Yes PATIENT PRESENTS WITH AN IMPLANTABLE OR ATTACHED INSTRUMENT ENGINEER: No RADIOLOGY DEPARTMENT: MR; Exam(s) Completed: Spine: Cervical spine PERIPHERAL IV DATA: Not applicable SIGNED BY: RT Chastity(R) September 16, 2023 3:32 PM [facility] 09-16-2023 Note HNO ID: [id number] Author: ADELA LAO RT(Alem) Service: Radiology Author Type: Technologist Type: Progress Notes Filed: 09/16/2023 15:32 Note Text: Radiology Service Progress Note PATIENT NAME: Jazmin Howard DATE OF SERVICE: September 16, 2023 TIME: 3:31 PM PATIENT IDENTITY VERIFICATION COMPLETED USING TWO (2) IDENTIFIERS: Name and Date of confirmed by patient verbally. FALL SCREENING: Has the patient had 2 falls in the last year or 1 fall with injury or currently using an Ambulatory Assistive Device (Walker, Cane, Wheelchair, Crutches, etc.)? No PATIENT GENDER DATA: Female. status: : No status: NO. PATIENT RELEVANT IMPLANT DATA REVIEWED: Yes PATIENT PRESENTS WITH AN IMPLANTABLE OR ATTACHED INSTRUMENT ENGINEER: No RADIOLOGY DEPARTMENT: MR; Exam(s) Completed: Head: [facility] [place] [facility] PERIPHERAL IV DATA: Not applicable SIGNED BY: RT Chastity(R) September 16, 2023 3:31 PM [facility] 09-16-2023 History of Present illness Narrative Radiology Service Progress Note PATIENT NAME: Jazmin Howard DATE OF SERVICE: September 16, 2023 TIME: 3:32 PM PATIENT IDENTITY VERIFICATION COMPLETED USING TWO (2) IDENTIFIERS: Name and Date of confirmed by patient verbally. FALL SCREENING: Has the patient had 2 falls in the last year or 1 fall with injury or currently using an Ambulatory Assistive Device (Walker, Cane, Wheelchair, Crutches, etc.)? No PATIENT GENDER DATA: Female. status: : No status: NO. PATIENT RELEVANT IMPLANT DATA REVIEWED: Yes PATIENT PRESENTS WITH AN IMPLANTABLE OR ATTACHED INSTRUMENT ENGINEER: No RADIOLOGY DEPARTMENT: MR; Exam(s) Completed: Spine: Cervical spine PERIPHERAL IV DATA: Not applicable SIGNED BY: RT Chastity(R) September 16, 2023 3:32 PM documented in this encounter [facility] 09-16-2023 History of Present illness Narrative Radiology Service Progress Note PATIENT NAME: Jazmin Howard DATE OF SERVICE: September 16, 2023 TIME: 3:31 PM PATIENT IDENTITY VERIFICATION COMPLETED USING TWO (2) IDENTIFIERS: Name and Date of confirmed by patient verbally. FALL SCREENING: Has the patient had 2 falls in the last year or 1 fall with injury or currently using an Ambulatory Assistive Device (Walker, Cane, Wheelchair, Crutches, etc.)? No PATIENT GENDER DATA: Female. status: : No status: NO. PATIENT RELEVANT IMPLANT DATA REVIEWED: Yes PATIENT PRESENTS WITH AN IMPLANTABLE OR ATTACHED INSTRUMENT ENGINEER: No RADIOLOGY DEPARTMENT: MR; Exam(s) Completed: Head: [facility] [employer] [place] MRA PERIPHERAL IV DATA: Not applicable SIGNED BY: RT Chastity(R) September 16, 2023 3:31 PM documented in this encounter [facility] 08-16-2023 Telephone encounter Note Referral and records faxed [facility] 08-16-2023 Miscellaneous Notes Referral and records faxed Referral and records faxed to [facility] Name of caller: Jazmin Contact phone number: [phone] Relationship to Patient: patient Provider: Dr Howard Practice: [facility] Chief Complaint/Reason for Call: The patient is calling back asking if the Referral can be sent to a [facility] to their fax#[phone]. Instead of the previously requested. Please advise. Best time of day caller can be reached: Any Patient advised that office/PCP has 24-48 business hours to return their call: No Name of caller: Jazmin Contact phone number: [phone] Relationship to Patient: patient Provider: Isaiah Watt Practice: [facility] Chief Complaint/Reason for Call: Requesting that the referral to neur be sent to [facility] Department Physical Address: [address] [facility] [address] Best time of day caller can be reached: any Patient advised that office/PCP has 24-48 business hours to return their call: Yes documented in this encounter [facility] 08-16-2023 Note Referral and records faxed to [facility] 08-16-2023 Telephone encounter Note Referral and records faxed to [facility] 08-16-2023 Telephone encounter Note Name of caller: Jazmin Contact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 Wednesday she woke up went to the bathroom and cracked her neck and then she instantly started having a panic attack. Reports that when this occurs she feels shakey, dizzy, hear beating hard and fast. States that when she has a panic attack, it's as if she is outside of her body and then feels exhausted. She feels like she has to remind herself to breathe if not then she will hold her breath. Talks about how she only is depressed and suicidal due to the anxiety. Symptoms progressively got worse over the last week and she has not been sleeping well, feeling hopeless. Talks about how she was unable to go to work this entire week. Unable to provide significant stressor or trigger. States that when this has happened in the past and currently it is always around her menstrual cycle. Denies homicidal ideation, auditory hallucinations, visual hallucinations, or paranoia. Talks about how she was going to [facility] for outpatient psychiatric services for years and recently transferred services to [facility] in [place]. Her first appointment was last Wednesday. States that she tried to reach out to the provider in which she called back today stating she could come in, but that she was already at the hospital. Reports that the new provider suspects she has bipolar disorder and is planning on doing pharmacogenetics testing. Discussed different treatment options and patient does not feel safe with being discharged at this time. Talks about how she is fearful of trying new medications due to a past experience of taking an unknown medication. She would like to be in a setting where she is monitored for medication adjustment. Collateral was obtained from the following individual: Patient mother Roxanne Howard present after evaluation. Patient patient requested her mother to be updated on plan for admission. REVIEW OF SYSTEMS: Medical Review Of Systems: Review of systems not obtained due to patient factors. Psychiatric Review Of Systems: Depressed mood: Yes reports d/t anxiety Sleep changes: Decreased Appetite changes: Decreased Weight changes: Unsure Energy changes: Decreased Loss of interest/anhedonia: Yes the last week Somatic symptoms: Libido changes: Anxiety/panic: Increased- and panic attacks Guilty/hopeless: Hopeless Self-injurious/risky behavior: HX of cutting Suicidal ideation: Yes- fleeting d/t anxiety Homicidal ideation:Denies Access to weapons:Denies Lifetime Psychiatric Review Of Systems: Carol or hypomania: Reports hx of impulsive behavior including spending excessive amounts of money, increase in sexual behavior, decrease need for sleep Panic attacks: Yes Phobias:Denies PTSD: Obsessions/compulsions: Hallucinations:Denies Delusions:Denies PAST PSYCHIATRIC HISTORY: The patient is currently receiving care for the above psychiatric illness with [facility]. 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 [facility] 06-30-2023 Telephone encounter Note S: Patient's mother spoke with [facility] nurse regarding patient's severe anxiety. B: Onset of symptoms/concern: Acute on chronic issue. A: Patient has been having anxiety starting about a week ago, getting worse. Started seeing a new psychiatrist and has talked to her therapist at least 4 times in the past week. 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 The anxiety has been affecting her appetite and sleep, crying a lot. Has had anxiety attacks in the past, but never this bad or for this long. Patient is depression because she isn't feeling right. Psychiatrist does not she has a diagnosis of depression, but more of bipolar disorder with anxiety. Patient has stated that she doesn't want to live feeling like this if there is no relief in sight. No major life incident that triggered this episode. She has been on Lamictal and Zoloft. Patient wants to go to the hospital. Mother asking which hospital they should go to. R: Advised mother to take patient to [facility] ER because of [facility] availability. Mother understands care advice. No further needs at this time. Mom instructed to call back with new or worsening symptoms. Reason for Disposition SEVERE anxiety (e.g., extremely anxious with intense emotional symptoms such as feeling of unreality, urge to flee, unable to calm down; unable to cope or function), which is not better after 10 minutes of reassurance and Care Advice Protocols used: Anxiety and Panic [id number] [facility] 06-30-2023 Miscellaneous Notes S: Patient's mother spoke with [facility] nurse regarding patient's severe anxiety. B: Onset of symptoms/concern: Acute on chronic issue. A: Patient has been having anxiety starting about a week ago, getting worse. Started seeing a new psychiatrist and has talked to her therapist at least 4 times in the past week. 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 The anxiety has been affecting her appetite and sleep, crying a lot. Has had anxiety attacks in the past, but never this bad or for this long. Patient is depression because she isn't feeling right. Psychiatrist does not she has a diagnosis of depression, but more of bipolar disorder with anxiety. Patient has stated that she doesn't want to live feeling like this if there is no relief in sight. No major life incident that triggered this episode. She has been on Lamictal and Zoloft. Patient wants to go to the hospital. Mother asking which hospital they should go to. R: Advised mother to take patient to [facility] ER because of [facility] availability. Mother understands care advice. No further needs at this time. Mom instructed to call back with new or worsening symptoms. Reason for Disposition SEVERE anxiety (e.g., extremely anxious with intense emotional symptoms such as feeling of unreality, urge to flee, unable to calm down; unable to cope or function), which is not better after 10 minutes of reassurance and Care Advice Protocols used: Anxiety and Panic [id number] documented in this encounter [facility] 06-20-2023 Telephone encounter Note She is going to follow with [facility]; they are hoping the Cortisone injection will start to work and are staying off the Mobic. [facility] 06-20-2023 Miscellaneous Notes She is going to follow with [facility]; they are hoping the Cortisone injection will start to work and are staying off the Mobic. S: The mother is calling the [facility] About an allergic reaction B: [facility] thinks it may be related to Mobic A: She received a cortisone shot and Mobic for her elbow. Yesterday, she took the Mobic. She had a warm feeling in her face and it was red and blotchy. There was a little on the arms. She was nervous and dyspneic (mild). She thought the dyspnea was anxiety. This was all yesterday. None of the symptoms were emergent or needing immediate medical attention [facility] recommended Benadryl. Last dose of Mobic was yesterday morning. Mom is not with her now but she thinks the symptoms have resolved for the most part today. R: Jazmin has a lot of anxiety; she does not want to take Benadryl. Severe symptoms typically happen within 2 hours of medication; she has not had Mobic for >24 hours and the medication was discontinued. The redness/rash should dissipate with time. Reason for Disposition Mild localized rash Protocols used: Rash or Redness - [id number] documented in this encounter [facility] 06-18-2023 Telephone encounter Note S: The mother is calling the [facility] About an allergic reaction B: [facility] thinks it may be related to Mobic A: She received a cortisone shot and Mobic for her elbow. Yesterday, she took the Mobic. She had a warm feeling in her face and it was red and blotchy. There was a little on the arms. She was nervous and dyspneic (mild). She thought the dyspnea was anxiety. This was all yesterday. None of the symptoms were emergent or needing immediate medical attention [facility] recommended Benadryl. Last dose of Mobic was yesterday morning. Mom is not with her now but she thinks the symptoms have resolved for the most part today. R: Jazmin has a lot of anxiety; she does not want to take Benadryl. Severe symptoms typically happen within 2 hours of medication; she has not had Mobic for >24 hours and the medication was discontinued. The redness/rash should dissipate with time. Reason for Disposition Mild localized rash Protocols used: Rash or Redness - [id number] [facility] 05-27-2023 Note [facility] EMG/NCS report: Patient: Jazmin Howard AGE: 22 y.o. Handedness: Right Gender: Female Referring physician: Isabelle Briceno PA-C Study date: 05/27/23 Reason for referral: Patient presents with paresthesias and pain in the right arm. Patient states that she had right elbow surgery in the past. She does have intermittent weakness in the right arm. EMG/nerve conduction study of the right upper extremity is done to evaluate for mononeuropathy affecting the right upper extremity versus right cervical radiculopathy. Summary: The right median sensory nerve action potential was unremarkable. The right ulnar sensory nerve action potential was unremarkable. The right radial sensory nerve action potential was unremarkable. The right median to ulnar ring finger comparison study was unremarkable. The right median to ulnar palmar comparison mixed nerve action potential was unremarkable. The right median to APB compound muscle action potential was unremarkable. The right ulnar to ADM compound muscle action potential was unremarkable. The right ulnar to FDI compound muscle action potential was unremarkable. Of note there was a Eugene-Lino anastomosis noted on this study. Concentric needle EMG was performed in the right upper extremity. No increased insertional activity, fibrillation potentials, fasciculation potentials or positive sharp waves were seen in any muscle tested. Motor unit action potentials demonstrated normal morphology and firing pattern throughout. Impression: This is a normal study. There is no electrophysiological evidence of a mononeuropathy affecting the right upper extremity on this study. There is no evidence of a right cervical radiculopathy on this study. All normal values/reference values for this study were taken from the AANEM reference values. This dictation was done by using the travayl dictation system. It has been proofread but still may contain unrecognized voice recognition errors. [facility] 05-27-2023 Procedure note Associated Ord er(s): NERVE CONDUCTION TEST WITH EMG [facility] EMG/NCS report: Patient: Jazmin Howard AGE: 22 y.o. Handedness: Right Gender: Female Referring physician: Isabelle Briceno PA-C Study date: 05/27/23 Reason for referral: Patient presents with paresthesias and pain in the right arm. Patient states that she had right elbow surgery in the past. She does have intermittent weakness in the right arm. EMG/nerve conduction study of the right upper extremity is done to evaluate for mononeuropathy affecting the right upper extremity versus right cervical radiculopathy. Summary: The right median sensory nerve action potential was unremarkable. The right ulnar sensory nerve action potential was unremarkable. The right radial sensory nerve action potential was unremarkable. The right median to ulnar ring finger comparison study was unremarkable. The right median to ulnar palmar comparison mixed nerve action potential was unremarkable. The right median to APB compound muscle action potential was unremarkable. The right ulnar to ADM compound muscle action potential was unremarkable. The right ulnar to FDI compound muscle action potential was unremarkable. Of note there was a Eugene-Lino anastomosis noted on this study. Concentric needle EMG was performed in the right upper extremity. No increased insertional activity, fibrillation potentials, fasciculation potentials or positive sharp waves were seen in any muscle tested. Motor unit action potentials demonstrated normal morphology and firing pattern throughout. Impression: This is a normal study. There is no electrophysiological evidence of a mononeuropathy affecting the right upper extremity on this study. There is no evidence of a right cervical radiculopathy on this study. All normal values/reference values for this study were taken from the AANEM reference values. This dictation was done by using the travayl dictation system. It has been proofread but still may contain unrecognized voice recognition errors. [facility] Procedure note Associated Ord er(s): NERVE CONDUCTION TEST WITH EMG [facility] EMG/NCS report: Patient: Jazmin Howard AGE: 22 y.o. Handedness: Right Gender: Female Referring physician: Isabelle Briceno PA-C Study date: 05/27/23 Reason for referral: Patient presents with paresthesias and pain in the right arm. Patient states that she had right elbow surgery in the past. She does have intermittent weakness in the right arm. EMG/nerve conduction study of the right upper extremity is done to evaluate for mononeuropathy affecting the right upper extremity versus right cervical radiculopathy. Summary: The right median sensory nerve action potential was unremarkable. The right ulnar sensory nerve action potential was unremarkable. The right radial sensory nerve action potential was unremarkable. The right median to ulnar ring finger comparison study was unremarkable. The right median to ulnar palmar comparison mixed nerve action potential was unremarkable. The right median to APB compound muscle action potential was unremarkable. The right ulnar to ADM compound muscle action potential was unremarkable. The right ulnar to FDI compound muscle action potential was unremarkable. Of note there was a Eugene-Lino anastomosis noted on this study. Concentric needle EMG was performed in the right upper extremity. No increased insertional activity, fibrillation potentials, fasciculation potentials or positive sharp waves were seen in any muscle tested. Motor unit action potentials demonstrated normal morphology and firing pattern throughout. Impression: This is a normal study. There is no electrophysiological evidence of a mononeuropathy affecting the right upper extremity on this study. There is no evidence of a right cervical radiculopathy on this study. All normal values/reference values for this study were taken from the AANEM reference values. This dictation was done by using the travayl dictation system. It has been proofread but still may contain unrecognized voice recognition errors. documented in this encounter [facility] 05-25-2023 History of Present illness Narrative Images from the original note were not included. [facility] [address] [place] [address] [address] [facility] [id number] Dept: [phone] Dept Loc: [phone] Visit type: Established Patient Reason for Visit: Elbow Pain (Rt elbow pain from an injury when she was 11 years old) Assessment and Plan 1. Right arm pain - Nerve conduction test with EMG - XR elbow 3+ views right - meloxicam (Mobic) 7.5 MG tablet; Take 1 tablet (7.5 mg) by mouth daily., Starting Wed05/25/2023, Until Wed08/23/2023, Normal - Diclofenac Sodium (Voltaren) 1 % gel; Apply 2 g topically 2 times daily., Starting Wed05/25/2023, Normal -Patient has persistent right arm pain burning sensation paresthesia with generalized weakness in the right hand that has gotten progressively worse. She does report taking Motrin almost every day now at this point time due to the ongoing issues with pain. This is all stemming from a previous fracture and subsequent surgery that was undergone approximately 10 years ago. - Will do trial of daily meloxicam and obtain an EMG to determine signs of possible compression of the neurovascular bundle in the right upper extremity subsequently causing weakness of the right hand. 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 Subjective HPI this is a 22-year-old female with an underlying history of depression who is on Zoloft and Lamictal was just seen by her PCP 2 weeks ago for routine checkup and evaluation returns back to the office today after contacting the [facility] for next appointment for concerns that she is having right elbow pain for the last 4 to 5 weeks. Patient reports history of an elbow fracture in 2011 she states over the last 4 to 5 weeks is been flaring up she rates the pain at a 4-5 out of 10 and movement seems to make it worse. She reports that the entire arm is swollen and that seems to come and go. She reports intermittent numbness and weakness in the arm. Reports that her hand feels tight. 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 And she notes that he have to use Motrin more frequently. Review of Systems Constitutional: Negative for chills and fever. Respiratory: Negative for cough and shortness of breath. Cardiovascular: Negative for chest pain. Gastrointestinal: Negative for abdominal pain, diarrhea, nausea and vomiting. Musculoskeletal: Negative for back pain. Neurological: Positive for weakness and numbness. Negative for dizziness and light-headedness. All other systems reviewed and are negative. Allergies Allergen Reactions Lactose Diarrhea Milk-Related Compounds Other reaction(s): Other (See Comments) BLOATING Tape Other reaction(s): Other (See Comments) BAND AID LEAVES A RED MIKE OR RASH Outpatient Medications Prior to Visit Medication Sig Dispense Refill cholestyramine (Questran) 4 g packet One q am for one week, then increase to one packet BID 60 packet 2 esomeprazole (NexIUM) [address] capsule Take 40 mg by mouth daily. lamoTRIgine (LaMICtal) 100 MG tablet One q am 30 tablet 3 lamoTRIgine (LaMICtal) 25 MG tablet One q PM 30 tablet 3 sertraline (Zoloft) 25 MG tablet Take 1.5 tablets (37.5 mg) by mouth daily. 45 tablet 3 No facility-administered medications prior to visit. 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 Powell to repeat MRI Recurrent depression (HCC) 2019 Dr. 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 Blanton LAP,CHOLECYSTECTOMY (HISTORICAL) 04/2022 SINUS SURGERY 03/2019 TONSILLECTOMY (HISTORICAL) 05/2018 Ai UPPER GASTROINTESTINAL ENDOSCOPY 08/[address] Wesley UPPER GASTROINTESTINAL ENDOSCOPY [address] Lundberg Family History Problem Relation Name Age of Onset No Known Problems Sister Luana older High Blood Pressure Mother Roxanne Hyperlipidemia Mother Roxanne Colon cancer Father David Objective BP 130/82 (BP Location: Left arm, Patient Position: Sitting, BP Cuff Size: Large adult) Pulse 90 Temp 36.6 C (97.8 F) (Temporal) Ht 5' 6 (1.676 m) Wt 264 lb (120 kg) SpO2 98% BMI 42.61 kg/m Physical Exam Vitals reviewed. Constitutional: General: She is not in acute distress. Appearance: Normal appearance. She is not ill-appearing or toxic-appearing. Eyes: General: No scleral icterus. Conjunctiva/sclera: Conjunctivae normal. Pupils: Pupils are equal, round, and reactive to light. Cardiovascular: Rate and Rhythm: Normal rate and regular rhythm. Heart sounds: Normal heart sounds. Pulmonary: Effort: Pulmonary effort is normal. No respiratory distress. Breath sounds: Normal breath sounds. Musculoskeletal: General: No swelling or tenderness. Cervical back: Normal range of motion and neck supple. Comments: There is mild opposition weakness of the fingers of the right hand. And pain with forced resistance of flexion extension of the right wrist reproduces pain at the right elbow. There is no signs of redness swelling there is no signs of compartment syndrome or signs of septic joint. Skin: General: Skin is warm and dry. Coloration: Skin is not pale. Findings: No erythema. Neurological: Mental Status: She is alert. Psychiatric: Mood and Affect: Mood normal. Data Reviewed and Summarized Labs: Imaging/Testing: Isabelle Briceno PA-C 05/25/2023 Please note that portions of this note may have been completed with voice recognition software. Documentation reviewed prior to signing but minor errors in library supervisor may have occurred. documented in this encounter [facility] 05-25-2023 Instructions Isabelle Briceno PA-C - 05/25/2023 10:00 AM EST A EMG of your right arm has been ordered for you. Central scheduling should reach out to you within the next several days to schedule this appropriately. If you do not hear from central scheduling within the next several days please do not wait more than 1 week. Reach out to central scheduling to verify that the test has been ordered and to get it scheduled. Their number is [phone]. documented in this encounter [facility] 05-11-2023 Telephone encounter Note Orders pended for doctor signature [facility] 01-09-2024 Miscellaneous Notes Orders pended for doctor signature Needs alternate psychiatry referral for this pt. Needs referral list to review documented in this encounter [facility] 05-11-2023 History of Present illness Narrative Images from the original note were not included. [facility] [address] [facility] [id number] Visit type: Established Patient Reason for Visit: Follow-up (Med check) and Referral (For psych/) Assessment / Plan: Jazmin was seen today for follow-up and referral. Diagnoses and all orders for this visit: Recurrent depression (HCC) (Primary) Comments: Improved, continue Zoloft and Lamictal and follow-up with psychiatry referral Status post cholecystectomy Other orders - sertraline (Zoloft) 25 MG tablet; Take 1.5 tablets (37.5 mg) by mouth daily. - lamoTRIgine (LaMICtal) 25 MG tablet; One q PM - lamoTRIgine (LaMICtal) 100 MG tablet; One q am Subjective: Patient ID: Jazmin Howard is a 22 y.o. female. HPI patient presents for refill on Zoloft Lamictal. Have reached out for psychiatry referral. Overall feeling fair. 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 Is enrolled in online classes for [employer]. She hopes to get into sports management Review of Systems does not smoke or drink. 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 Presently with her parents. Bowels are little better on Questran. No cardiac or pulmonary concerns. Resolved URI and sinus infection. No new concerns. Sleeping pretty well. Generally pretty upbeat. Allergies Allergen Reactions Lactose Diarrhea Milk-Related Compounds Other reaction(s): Other (See Comments) BLOATING Tape Other reaction(s): Other (See Comments) BAND AID LEAVES A RED MIKE OR RASH Current Outpatient Medications on File Prior to Visit Medication Sig Dispense Refill cholestyramine (Questran) 4 g packet One q am for one week, then increase to one packet BID 60 packet 2 esomeprazole (NexIUM) [address] capsule Take 40 mg by mouth daily. [DISCONTINUED] lamoTRIgine (LaMICtal) 100 MG tablet One q am 30 tablet 1 [DISCONTINUED] lamoTRIgine (LaMICtal) 25 MG tablet One q PM 30 tablet 1 [DISCONTINUED] sertraline (Zoloft) 25 MG tablet Take 1.5 tablets (37.5 mg) by mouth daily. 45 tablet 1 [DISCONTINUED] azithromycin (Zithromax Z-Torsten) 250 MG tablet Take as directed 6 tablet 0 No current facility-administered medications on file prior to visit. Patient Active Problem List Diagnosis Dysmenorrhea Recurrent depression (HCC) History of renal stone Enlarged pituitary gland (HCC) Status post cholecystectomy Acute non-recurrent frontal sinusitis Social History Tobacco Use Smoking status: Never Smokeless tobacco: Never Substance Use Topics Alcohol use: No Alcohol/week: 0.0 standard drinks of alcohol Past Surgical History: Procedure Laterality Date ELBOW ARTHROSCOPY (HISTORICAL) Right 2011 lose FB removed per Dr. Blanton LAP,CHOLECYSTECTOMY (HISTORICAL) 04/2022 SINUS SURGERY 03/2019 TONSILLECTOMY (HISTORICAL) 05/2018 Ai UPPER GASTROINTESTINAL ENDOSCOPY 08/[address] Wesley UPPER GASTROINTESTINAL ENDOSCOPY [address] Lundberg Family History Problem Relation Name Age of Onset No Known Problems Sister Luana older High Blood Pressure Mother Roxanne Hyperlipidemia Mother Roxanne Colon cancer Father David Objective: BP 100/60 Pulse 75 Temp 36.2 C (97.2 F) (Temporal) Ht 5' 6 (1.676 m) Wt 268 lb (122 kg) SpO2 99% BMI 43.26 kg/m Physical Exam She appears well today normal eardrums and oropharynx. No neck masses or adenopathy. No thyroid lesions. Reflexes normal. Heart is regular without ectopy. Lungs are clear. Abdomen obese nontender without pain placement of the masses or ascites. Extremities pink without edema documented in this encounter [facility] 05-06-2023 Note Needs alternate psyc hiatry referral for this pt. Needs referral list to review [facility] 05-06-2023 Telephone encounter Note Needs alternate psychiatry referral for this pt. Needs referral list to review [facility] 04-06-2023 Evaluation + Plan note Associated Problem(s): Acute non-recurrent frontal sinusitis Zithromax Z-Torsten take as directed. Saline nasal spray, Tylenol or Advil, increase fluids and rest. [facility] 04-06-2023 Miscellaneous Notes Associated Problem(s): Acute non-recurrent frontal sinusitis Zithromax Z-Torsten take as directed. Saline nasal spray, Tylenol or Advil, increase fluids and rest. documented in this encounter [facility] 04-06-2023 History of Present illness Narrative Patient was verified by name and . Images from the original note were not included. 04/06/2023 Jazmin Howard (: 2000) is a 22 y.o. female , Established patient, here for evaluation of the following chief complaint(s): Cough (Sinus congestion, fever, onset about a week, negative COVID test on ) ASSESSMENT/PLAN: 1. Acute non-recurrent frontal sinusitis Assessment & Plan: Zithromax Z-Torsten take as directed. Saline nasal spray, Tylenol or Advil, increase fluids and rest. Follow up if symptoms worsen or fail to improve. SUBJECTIVE/OBJECTIVE: TARA -Jazmin comes in today complaining of sinus congestion drainage fever 102 scratchy throat rhinorrhea that is yellow-green and cough that is productive of yellow-green sputum. And this started a week ago. Review of Systems Constitutional: Positive for fever. Negative for chills. HENT: Positive for congestion, rhinorrhea and sinus pressure. Negative for ear pain. Respiratory: Positive for cough. Negative for shortness of breath. Cardiovascular: Negative for chest pain and palpitations. Vitals: 04/06/23 1324 BP: 117/81 Pulse: 82 Temp: 36.9 C (98.5 F) TempSrc: Oral SpO2: 98% Weight: 265 lb (120 kg) Height: 5' 6 (1.676 m) Physical Exam Vitals and nursing note reviewed. Constitutional: General: She is not in acute distress. Appearance: Normal appearance. HENT: Head: Normocephalic and atraumatic. Right Ear: Tympanic membrane, ear canal and external ear normal. Left Ear: Tympanic membrane, ear canal and external ear normal. Mouth/Throat: Mouth: Mucous membranes are moist. Pharynx: Oropharynx is clear. Eyes: Extraocular Movements: Extraocular movements intact. Pupils: Pupils are equal, round, and reactive to light. Cardiovascular: Rate and Rhythm: Normal rate and regular rhythm. Heart sounds: Normal heart sounds. No murmur heard. Pulmonary: Effort: Pulmonary effort is normal. Breath sounds: Normal breath sounds. Musculoskeletal: Cervical back: Neck supple. Lymphadenopathy: Cervical: No cervical adenopathy. Neurological: Mental Status: She is alert. An electronic signature was used to authenticate this note. Neptali Smith MD 04/06/2023 2:18 PM documented in this encounter [facility] 01-01-2023 History of Present illness Narrative Retail Business Development Manager offered: Patient declinesBel Kothari is a 22 year old who presents for an annual gynecologic exam with complaints, irregular bleeding. Menses: irregular cycle- has skipped up to 6 months before. Contraception: none HPV vaccine: Yes Last Pap: never HPV: N/A History of abnormal pap: No Last mammogram: never Sexually active: Yes History of STDS: None Pain with intercourse: No Postcoital bleeding: No OB History T0 L0 SAB0 IAB0 Ectopic0 Multiple0 Live Births0 Sports Complex Attendant History LMP: 12/04/2022, Having periods Age at Menarche: Age at First : Age at Menopause: Sports Complex Attendant History Comments: Sexual Activity: Yes; Male Contraception: No contraception data on record PAST MEDICAL HISTORY Diagnosis Date History of elbow surgery 05/03/2011 Mood disorder (HCC) PAST SURGICAL HISTORY Procedure Laterality Date ELBOW SURGERY HX 7th grade right elbow [employer] CHOLECYSTECTOMY 2021 FAMILY HISTORY Problem Relation Age of Onset Hypertension Mother Hypertension Maternal Grandmother Heart Maternal Grandmother Hypertension Maternal Grandfather Heart Maternal Grandfather SOCIAL HISTORY Social History Tobacco Use Smoking status: Never Smokeless tobacco: Never Vaping Use Vaping Use: Never used Substance Use Topics Alcohol use: No Drug use: No REVIEW OF SYSTEMS Abdomen: No abdominal pain, nausea, vomiting, diarrhea, or constipation. No bloating, early satiety, indigestion, or increased flatulence. Bladder: No dysuria, gross hematuria, urinary frequency, urinary urgency, or incontinence. Breast: No breast lumps, nipple d/c, overlying skin changes, redness or skin retraction. Allergies and current medication updated:Yes EXAM: Ht 5' 6.575 (1.69m) Wt 254 lb (115.2kg) LMP 12/04/2022 BMI 40.29 kg/(m^2). GENERAL: pleasant, female in no apparent distress HEENT: Normocephalic, atraumatic, mucus membranes moist, and no lesions NECK: Supple, full range of motion, no adenopathy, and thyroid normal DERMATOLOGY: Normal, without lesions, non-icteric, and non-hirsute BREAST: soft, non-tender, symmetric, no dominant mass, normal nipple-areolar complex, no lymphadenopathy, and no nipple discharge CHEST: Normal inspiratory effort ABDOMEN: soft, non-tender, and no masses PELVIC: external genitalia normal, normal Bartholin's glands, urethra, [place]'s glands, no vulvar lesions, no cervical lesions, physiologic discharge present, normal appearing perineal body and perianal region BIMANUAL: uterus normal size, shape and consistency, no adnexal masses, and Mild tenderness RECTOVAGINAL: deferred. NEURO: alert and oriented x3,exam grossly non-focal EXTREMITIES: normal ASSESSMENT/PLAN: 1) Health maintenance: Pap done with reflex HPV. Mammogram starting age 40. Nutrition, exercise and routine health maintenance exams reviewed. Calcium/Vitamin D supplementation information provided. 2) Contraception: none. Contraceptive options reviewed and information provided. 3) STD screening: Declined STD check. 4) Follow up one year or sooner as needed 5) pelvic US for possible right ovarian cyst Patient is not interested in doing control at this time, I did discuss with her the need to have a menses every 3 months. And to message me if she has not and I will order Provera to induce. Radha Melendez APRN.GAUGE AND INSTRUMENT INSPECTOR documented in this encounter [facility] 12-07-2022 Telephone encounter Note Rx loaded Last apt 11/24/22 [facility] 12-07-2022 Miscellaneous Notes Rx loaded Last apt 11/24/22 documented in this encounter [facility] 12-01-2022 History of Present illness Narrative Retail Business Development Manager offered: Patient declines. Jazmin Howard is a 22 year old female who presents for problem visit STD testing. HPI: This patient states approximately 2 weeks ago she had unprotected intercourse and would like to have STD testing done today.. She also took a Plan B the day after unprotected intercourse. Patient states that her menstrual cycles are irregular. OB History T0 L0 SAB0 IAB0 Ectopic0 Multiple0 Live Births0 Sports Complex Attendant History LMP: 10/12/2022, Having periods Age at Menarche: Age at First : Age at Menopause: Sports Complex Attendant History Comments: Sexual Activity: Never; No partner data on record; Never SA Contraception: No contraception data on record PAST MEDICAL HISTORY Diagnosis Date History of elbow surgery 05/03/2011 Mood disorder (HCC) PAST SURGICAL HISTORY Procedure Laterality Date ELBOW SURGERY HX 7th grade right elbow [employer] CHOLECYSTECTOMY 2021 FAMILY HISTORY Problem Relation Age of Onset Hypertension Mother Hypertension Maternal Grandmother Heart Maternal Grandmother Hypertension Maternal Grandfather Heart Maternal Grandfather Social History Tobacco Use Smoking status: Never Smokeless tobacco: Never Vaping Use Vaping Use: Never used Substance Use Topics Alcohol use: No Drug use: No Current Outpatient Medications Medication Sig esomeprazole magnesium (NEXIUM ORAL) Take 20 mg by mouth once daily. sertraline (ZOLOFT) 25 mg tablet TAKE 1&1/2 TABLETS BY MOUTH DAILY lamoTRIgine (LAMICTAL) 25 mg tablet TAKE 1 TABLET BY MOUTH EVERY DAY IN ADDITION TO TH 100MG lamoTRIgine (LAMICTAL) 100 mg tablet Take 1 tablet by mouth once daily. levonorgestrel-ethinyl estradiol (LEVORA-28) 0.15-0.03 mg per tab Take 1 tablet by mouth once daily. pantoprazole DR (PROTONIX) 40 mg tablet Take by mouth once daily. No current facility-administered medications for this visit. Allergies As of Date: 12/01/2022 Allergen Noted Reaction LACTOSE 10/10/2014 Diarrhea Fully Assessed 12/01/2022 REVIEW OF SYSTEMS Expanded ROS: N/A Allergies and current medication updated:Yes EXAM: Wt 251 lb (113.9kg) LMP 10/12/2022 GENERAL: pleasant, female in no apparent distress HEENT: Normocephalic, atraumatic, mucus membranes moist, and no lesions CHEST: Normal inspiratory effort PELVIC: external genitalia normal, normal Bartholin's glands, urethra, [place]'s glands, no vulvar lesions, no cervical lesions, good vaginal support, physiologic discharge present, normal appearing perineal body and perianal region BIMANUAL: deferred NEURO: alert and oriented x3,exam grossly non-focal EXTREMITIES: normal ASSESSMENT/PLAN: 1. Screen for STD (sexually transmitted disease) - ICD9: V74.5, ICD10: Z11.3 - SYPHILIS TOTAL W/REFLEX - HEP B SURF AG SCRN - HCV QUANT RNA BY PCR - HIV 1 2 COMBO(AG/AB),WITH REFLEX TO DIFFERENTIATION - GONORRHEA/CHLAMYDIA NAAT - HCG QUANTITATIVE - TRICHOMONAS VAGINALIS NAAT Discussed progesterone only control options with the patient, she may be interested in the pill. States she had tried an IUD and it did not stay in place. Also discussed with the patient to schedule an annual visit for a Pap smear and breast exam and if she chooses to proceed with starting a pill we can do so at that time. Will notify patient of test results. Radha Melendez APRN.GAUGE AND INSTRUMENT INSPECTOR Medical Decision Making: Problems: Low: Acute, uncomplicated illness or injury Data: Unique test(s) ordered: 3+ Risk: Low: Low risk from testing/treatment Medical Decision Making Level: 3 - Low documented in this encounter [facility] 09-07-2022 Miscellaneous Notes Please deny. Patient has moved out of state. Pharmacy faxed requesting the following refill: Refill(s) Requested: Requested Prescriptions Pending Prescriptions Disp Refills sertraline (ZOLOFT) 25 mg tablet [Pharmacy Med Name: SERTRALINE HCL 25 MG TABLET] 135 tablet Sig: TAKE 1 & 1/2 TABLETS BY MOUTH EVERY DAY ALLERGIES Allergen Reactions Lactose Diarrhea (home) [phone] (cell) Last Office Visit Date: Visit date not found Last [facility] Visit: Visit date not found Future Appointment: Visit date not found The patients preferred pharmacy has been captured for this encounter? yes Request is for script(s) to be escript to pharmacy. Specialty Problems Psych Problems Generalized anxiety disorder Moderate episode of recurrent major depressive disorder (HCC) Unspecified mood (affective) disorder (HCC) Depersonalization-derealization syndrome (HCC) Dissociative trance Katy Huynh September 07, 2022 9:23 AM documented in this encounter [facility] 04-28-2022 Miscellaneous Notes Prescriptions sent on 04.23. Will re-send. Pharmacy faxed requesting the following refill: Refill(s) Requested: Requested Prescriptions Pending Prescriptions Disp Refills sertraline (ZOLOFT) 25 mg tablet [Pharmacy Med Name: SERTRALINE HCL 25 MG TABLET] 90 tablet 3 Sig: TAKE 1&1/2 TABLETS BY MOUTH DAILY lamoTRIgine (LAMICTAL) 25 mg tablet [Pharmacy Med Name: LAMOTRIGINE 25 MG TABLET] 90 tablet 0 Sig: TAKE 1 TABLET BY MOUTH EVERY DAY IN ADDITION TO TH 100MG ALLERGIES Allergen Reactions Lactose Diarrhea (home) [phone] (cell) Last Office Visit Date: Visit date not found [facility] Visit: Visit date not found Future Appointment: Visit date not found The patients preferred pharmacy has been captured for this encounter? yes Request is for script(s) to be escript to pharmacy. Specialty Problems Psych Problems Generalized anxiety disorder Moderate episode of recurrent major depressive disorder (HCC) Unspecified mood (affective) disorder (HCC) Depersonalization-derealization syndrome (HCC) Dissociative trance Maryam Carmella April 28, 2022 11:51 AM documented in this encounter [facility] 04-20-2022 Miscellaneous Notes Per your instructions, no more medication refills. Patient lives out of state. Pharmacy faxed requesting the following refill: Refill(s) Requested: Requested Prescriptions Pending Prescriptions Disp Refills lamoTRIgine (LAMICTAL) 100 mg tablet [Pharmacy Med Name: LAMOTRIGINE 100 MG TABLET] 90 tablet 0 Sig: TAKE 1 TABLET BY MOUTH EVERY DAY ALLERGIES Allergen Reactions Lactose Diarrhea (home) [phone] (cell) Last Office Visit Date: Visit date not found Last [facility] Visit: Visit date not found Future Appointment: Visit date not found The patients preferred pharmacy has been captured for this encounter? yes Request is for script(s) to be escript to pharmacy. Specialty Problems Psych Problems Generalized anxiety disorder Moderate episode of recurrent major depressive disorder (HCC) Unspecified mood (affective) disorder (HCC) Depersonalization-derealization syndrome (HCC) Dissociative trance Katy Huynh April 20, 2022 8:28 AM documented in this encounter [facility] 01-15-2022 Miscellaneous Notes Restricted notes were excluded Danie TMA, who is the pharmacist at [place] [place] [facility] called today saying he will not fill any more medication for Jazmin, nor will he transfer any more medication for her. He wants to be removed from Jazmin's profile. Jazmin's mother showed up at the pharmacy today screaming at them due to an error that occurred during transfer to [place] pharmacy. Katy Huynh documented in this encounter [facility] 01-02-2022 Miscellaneous Notes Restricted notes were excluded Scripts for Lamictal 25 mg, Lamictal 100 mg and Zoloft 25 mg, all dated 12.04.21, were transferred from [facility] in [place], [place] to [facility] in [place], [place]. When Jazmin picked up those medications at [facility] in [place], she was also given Pamelor 10 mg, which the pharmacy said was prescribed by Brinda Tyson. We did not send that medication to the pharmacy. Per Jazmin, this [facility] has made a few mistakes on Jazmin's refills. Thankfully, she knew she has never taken Pamelor and she did not take any. She called and asked why Brinda had prescribed it, which I explained to her that we Brinda had not. Katy Huynh documented in this encounter [facility] 12-04-2021 Miscellaneous Notes Prescriptions sent to local pharmacy. She can transfer the prescriptions to the new pharmacy. Saniya recently moved to [place] and does not have an upcoming appointment. Pharmacy faxed requesting the following refill: Refill(s) Requested: Pending Prescriptions Disp Refills SERTRALINE 25 MG TABLET 135 tablet 0 Sig: TAKE 1 & 1/2 TABLET BY MOUTH EVERY DAY MILTON: Yes ALLERGIES Allergen Reactions Lactose Diarrhea (home) [phone] (cell) Last Office Visit Date: Visit date not found Last [facility] Visit: Visit date not found Future Appointment: Visit date not found The patients preferred pharmacy has been captured for this encounter? yes Request is for script(s) to be escript to pharmacy. Specialty Problems Psych Problems Generalized anxiety disorder Moderate episode of recurrent major depressive disorder (HCC) Unspecified mood (affective) disorder (HCC) Depersonalization-derealization syndrome (HCC) Dissociative trance Katy Huynh December 04, 2021 8:16 AM documented in this encounter [facility] 10-28-2021 Miscellaneous Notes Restricted notes were excluded Angeles, from Dr. Lundberg's Office from [facility] called regarding Jazmin. They prescribed Pamelor 10 mg for Jazmin and there is an interaction with Zoloft that you prescribe. There is an increased risk of EKG changes. Please advise. Katy Huynh documented in this encounter [facility] 10-15-2021 Miscellaneous Notes Jazmin moves to [place] this weekend. She is requesting a 90 day for all her medication. Patient called requesting the following refill: Refill(s) Requested: Pending Prescriptions Disp Refills LAMOTRIGINE 100 MG TABLET 90 tablet 0 Sig: Take 1 tablet by mouth once daily. MILTON: No LAMOTRIGINE 25 MG TABLET 90 tablet 0 Sig: Take 1 tablet by mouth once daily. In addition to 100mg MILTON: No SERTRALINE 25 MG TABLET 135 tablet 0 Sig: Take 1.5 tablets by mouth once daily. MILTON: No ALLERGIES Allergen Reactions Lactose Diarrhea (home) [phone] (cell) Last Office Visit Date: Visit date not found Last [facility] Visit: Visit date not found Future Appointment: Visit date not found The patients preferred pharmacy has been captured for this encounter? yes Request is for script(s) to be escript to pharmacy. Specialty Problems Psych Problems Generalized anxiety disorder Moderate episode of recurrent major depressive disorder (HCC) Unspecified mood (affective) disorder (HCC) Depersonalization-derealization syndrome (HCC) Dissociative trance Katy Huynh October 15, 2021 9:33 AM documented in this encounter [facility] 07-29-2021 Miscellaneous Notes Jazmin's next appointment is on 09.08.21. Patient called requesting the following refill: Refill(s) Requested: Pending Prescriptions Disp Refills LAMOTRIGINE 100 MG TABLET 30 tablet 2 Sig: Take 1 tablet by mouth once daily. MILTON: No LAMOTRIGINE 25 MG TABLET 30 tablet 2 Sig: Take 1 tablet by mouth once daily. In addition to 100mg MILTON: No SERTRALINE 25 MG TABLET 45 tablet 2 Sig: Take 1.5 tablets by mouth once daily. MILTON: No ALLERGIES Allergen Reactions Lactose Diarrhea (home) [phone] (cell) Last Office Visit Date: Visit date not found Last [facility] Visit: Visit date not found Future Appointment: Visit date not found The patients preferred pharmacy has been captured for this encounter? yes Request is for script(s) to be escript to pharmacy. Specialty Problems Psych Problems Generalized anxiety disorder Moderate episode of recurrent major depressive disorder (HCC) Unspecified mood (affective) disorder (HCC) Depersonalization-derealization syndrome (HCC) Dissociative trance Katy Huynh July 29, 2021 8:46 AM documented in this encounter [facility] 04-04-2019 History of Past i llness Narrative Problem Noted Date Diagnosed Date Resolved Date Obesity, Class II, BMI 35-39.9 04/04/2019 12/01/2022 documented as of this encounter (statuses as of 12/01/2022) [facility]12-03[facility]2019 History of Past illness Narrative* Problem Noted Date Diagnosed Date Resolved Date Obesity, Class II, BMI 35-39.9 04/04/2019 12/01/2022 documented as of this encounter (statuses as of 01/01/2023) [facility] History of Past illness Narrative* Problem Noted Date Diagnosed Date Resolved Date Obesity, Class II, BMI 35-39.9 04/04/2019 12/01/2022 documented as of this encounter (statuses as of 04/08/2023) [facility] note* Diagnosis Medication reaction, initial encounter- Primary documented in this encounter [facility] Work [facility]* Diagnosis Mood disorder (HCC)- Primary Unspecified episodic mood disorder Generalized anxiety disorder Major depressive disorder, recurrent episode, in full remission (HCC) Major depressive disorder, recurrent episode, in full remission documented in this encounter [facility] note* Diagnosis Screen for STD (sexually transmitted disease)- Primary Screening examination for venereal disease documented in this encounter [facility] note* Diagnosis Encounter for gynecological examination (general) (routine) without abnormal findings- Primary Screening for cervical cancer Screening for malignant neoplasm of the cervix Pelvic pain in female Unspecified symptom associated with female genital organs documented in this encounter [facility] note* Diagnosis Acute non-recurrent frontal sinusitis- Primary documented in this encounter [facility] note* Diagnosis Recurrent depression (HCC)- Primary Status post cholecystectomy Other acquired absence of organ documented in this encounter [facility] note* Diagnosis Recurrent depression (HCC) documented in this encounter [facility] note* Diagnosis Right arm pain- Primary Pain in soft tissues of limb Right arm pain Pain in soft tissues of limb documented in this encounter [facility] note* Diagnosis Right arm pain Pain in soft tissues of limb documented in this encounter [facility] note* Diagnosis Right arm pain Pain in soft tissues of limb documented in this encounter [facility] note* Diagnosis Neck pain, acute- Primary documented in this encounter [facility] note* Diagnosis Neck pain, acute documented in this encounter [facility] note* Diagnosis Irregular menstrual cycle- Primary documented in this encounter [facility] note* Diagnosis Irregular menstrual cycle documented in this encounter [facility] note* Diagnosis Irregular menstrual cycle- Primary documented in this encounter [facility] note* Diagnosis Bicornate uterus- Primary Bicornuate uterus Iron deficiency anemia due to chronic blood loss Iron deficiency anemia secondary to blood loss (chronic) Dysmenorrhea Abnormal uterine bleeding (AUB) Endometrial polyp Polyp of corpus uteri * Assessment & Plan Note - Nan Fonseca MD - 02/15/2024 10:02 AM EDT Associated Problem(s): Iron deficiency anemia due to chronic blood loss * Assessment & Plan Note - Nan Fonseca MD - 02/15/2024 10:02 AM EDT Associated Problem(s): Dysmenorrhea * Assessment & Plan Note - Nan Fonseca MD - 02/15/2024 10:02 AM EDT Associated Problem(s): Bicornate uterus documented in this encounter [facility] Discharge instructions* Attachments The following attachments cannot be sent through Care Everywhere. * Medication Side Effects (Cambodian) [facility] Reason for referral (narrative)* Diagnostic Procedure Only (Routine) - Authorized Specialty Diagnoses / Procedures Referred By Chaya miller Referred To Contact US IMAGING Diagnoses Pelvic pain in female Procedures US FEMALE PELVIS TRANSVAG US TRANSVAGINAL Radha Melendez APRN.CNP [address] [place] [address] [place] [address] Referral ID Status Reason Start Date Expiration Date Visits Requested Visits Authorized [id number] Authorized Auto-Generat ed Referral 01/01/2023 01/31/2024 1 1 [facility] for referral (narrative)* Consultation (Routine) - Pending Review Specialty Diagnoses / Procedures Referred By Chaya miller Referred To Contact Psychiatry Diagnoses Recurrent depression (HCC) Procedures [place] OFFICE/OUTPATIENT NEW HIGH MDM 60 MINUTES Iglesia Polk, DO [address] [place] [address] Teresa Anderson [address] [place] [address] [place] [address] Referral ID Status Reason Start Date Expiration Date Visits Requested Visits Authorized [id number] Pending Review Specialty Services Required 05/11/2023 05/10/2024 1 1 [facility] for referral (narrative)* Consultation (Routine) - Pending Review Specialty Diagnoses / Procedures Referred By Contac t Referred To Contact Neurology Diagnoses Neck pain, acute Procedures [place] OFFICE/OUTPATIENT NEW HIGH MDM 60 MINUTES Isabelle Briceno PA-C [address] [facility] [address] [place] [address] [facility] [address] [place] [address] Referral ID Status Reason Start Date Expiration Date Visits Requested Visits Authorized [id number] Pending Review Specialty Services Required 08/13/2023 08/12/2024 1 1 [facility] for referral (narrative)* Diagnostic Procedure Only (Routine) - Authorized Specialty Diagnoses / Procedures Referred By Contac t Referred To Contact US IMAGING Diagnoses Irregular menstrual cycle Procedures US FEMALE PELVIS TRANSVAG US TRANSVAGINAL Radha Melendez APRN.CNP [address] [place] [address] [place] [address] Referral ID Status Reason Start Date Expiration Date Visits Requested Visits Authorized [id number] Authorized Auto-Generat ed Referral 10/08/2023 11/06/2024 1 1 [facility] for visit Narrative* Diagnostic Procedure Only (Routine) - Closed Specialty Diagnoses / Procedures Referred By Contac t Referred To Contact US IMAGING Diagnoses Irregular menstrual cycle Procedures US FEMALE PELVIS TRANSVAG US TRANSVAGINAL Radha Melendez APRN.CNP [address] [place] [address] [place] [address] Referral ID Status Reason Start Date Expiration Date V isits Requested Visits Authorized [id number] Closed Auto-Generate d Referral 10/08/2023 11/06/2024 1 1 [facility] Summary Purpose Family History No Family History Records FoundNo Family History Records FoundNo Family History Records FoundNo Family History Records FoundNo Family History Records FoundNo Family History Records FoundNo Family History Records FoundNo Family History Records FoundNo Family History Records FoundNo Family History Records Found Advance Directives Documents on File Type Date Recorded 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 Advance Directives and Living Will Power of Senior Infrastructure Architect Documents on File Type Date Recorded 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 ACP-Advance Directive ACP-Power of Senior Infrastructure Architect Documents on File Type Date Recorded 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 Advance Directive(s) 03/22/2019 10:56 AM Advance Directive(s) 03/09/2019 5:22 PM Latest Code Status on File Code Status Date Activated Date Inactivated Comments Full Code 06/30/2023 2:48 PM Latest Code Status on File Code Status Date Activated Date Inactivated Comments Full Code 06/30/2023 2:48 PM 07/02/2023 6:50 PM Latest Code Status on File Code Status Date Activated Date Inactivated Comments Full Code 06/30/2023 2:48 PM 07/02/2023 6:50 PM Date Activated Date Inactivated Comments 06/30/2023 2:48 PM 07/02/2023 6:50 PM Discharge Instructions * Instructions* Eligio Rudolph MD - 11/13/2019 Continue your medications. If you began feeling more depressed or helpful return immediately to theemergency department. Schedule an appointment with your physician later this week. * Attachments The following attachments cannot be sent through Care Everywhere. * Depression: Self Care (Cambodian) documented in this encounter Assessments Diagnosis Current mild episode of major depressive disorder, unspecified whether recurrent (HCC) Reason for Referral Specialty Diagnoses / Procedures Referred By Chaya miller Referred To Contact Neurology Diagnoses Right arm pain Procedures Nerve conduction test with EMG Isabelle Briceno PA-C [address] [place] [address] Referral ID Status Reason Start Date Expiration Date V isits Requested Visits Authorized [id number] Authorized 05/25/2023 05/19/2024 1 1 Referral ID Status Reason Start Date Expiration Date Visits Re quested Visits Authorized [id number] Closed 05/25/2023 05/19/2024 1 1 Additional Source Comments INFORMATION SOURCE (unrecogn ized section and content) DATE CREATED AUTHOR 08/03/2018 [facility] DATE CREATED AUTHOR AUTHOR'S ORGANIZ ATION 08/28/2018 [facility] DATE CREATED AUTHOR AUTHOR'S ORGANIZ ATION 04/07/2019 [facility] DATE CREATED AUTHOR AUTHOR'S ORGANIZ ATION 11/30/2020 [facility] DATE CREATED AUTHOR AUTHOR'S ORGANIZ ATION 09/07/2023 [facility] DATE CREATED AUTHOR AUTHOR'S ORGANIZ ATION 09/08/2023 [facility] DATE CREATED AUTHOR AUTHOR'S ORGANIZ ATION 09/19/2023 [facility] DATE CREATED AUTHOR AUTHOR'S ORGANIZ ATION 12/30/2023 [facility] DATE CREATED AUTHOR AUTHOR'S ORGANIZ ATION 02/05/2024 [facility] DATE CREATED AUTHOR AUTHOR'S ORGANIZ ATION 02/17/2024 [facility] Reason for Visit (unrecogniz ed section and content) Reason Comments Suicidal Reason Comments Allergic Reaction Reason Onset Date Comments Refill Request 07/29/2021 Reason Comments Anxiety Depression Reason Onset Date Comments Refill Request 10/15/2021 Reason Comments [facility] Registered Nurse - Other Reason Comments Refill Request Reason Comments Medication Problem Reason Comments Patient Update Reason Onset Date Comments Refill Request Refill Request 04/20/2022 Reason Comments Pelvic Pain Reason Onset Date Comments Med Refill 12/07/2022 Reason Comments 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 Reason Comments Cough Sinus congestion, fe francesca, onset about a week, negative COVID test on Reason Comments Follow-up Med check Referral For psych Reason Onset Date Comments Orders 05/06/2023 Psychiatry refer ral Reason Comments Elbow Pain Rt elbow pain from a n injury when she was 11 years old Specialty Diagnoses / Procedures Referred By Chaya t Referred To Contact Neurology Diagnoses Right arm pain Procedures Nerve conduction test with EMG Isabelle Briceno PA-C [address] [place] [address] Referral ID Status Reason Start Date Expiration Date Visits Re quested Visits Authorized [id number] Closed 05/25/2023 05/19/2024 1 1 Reason Onset Date Comments Allergic Reaction 06/18/2023 Reason Onset Date Comments Anxiety 06/30/2023 Reason Comments Neck Pain Requesting referral Reason Onset Date Comments addended referral request 08/16/2023 Reason Comments Discussion Reason Onset Date Comments Results 11/01/2023 Reason Comments Results Reason Comments Problem Visit Specialty Diagnoses / Procedures Referred By Contac t Referred To Contact [facility] Diagnoses Spondylosis without myelopathy or radiculopathy, cervical region mra head w/o mri cervical w/o faxing orders m47.812 spondolosis g43.e11 migraineBloating [R14.0] RUQ pain [R10.11] Procedures MRI SPINAL CANAL CERVICAL W/O CONTRAST MATRL MRI WO ALMA B [address] [facility], [facility] [address] [place] [address] Referral ID Status Reason Start Date Expiration Date Visits Re quested Visits Authorized [id number] Closed 08/31/2023 05/02/2024 1 1 Specialty Diagnoses / Procedures Referred By Contac t Referred To Contact [facility] Diagnoses Chronic migraine with aura, intractable, with status migrainosus mra head w/o mri cervical w/o faxing orders m47.812 spondolosis g43.e11 migraineBloating [R14.0] RUQ pain [R10.11] Procedures MRA, HEAD W/O CONTRAST MRA WWO NEU1 B [address] [facility], [place] [address] [place] [address] Referral ID Status Reason Start Date Expiration Date Visits Re quested Visits Authorized [id number] Closed 08/31/2023 05/02/2024 1 1 Reason Comments Preparations For Surgery Reason Comments Pre-Op Visit Reason Onset Date Comments Knee Injury 02/03/2024 Source Comments (unrecognize d section and content) In the event this informatio n is protected by the Federal Confidentiality of Alcohol and Drug Abuse Patient Records regulations: The Federal rules restrict any use of the information to criminally investigate or prosecute any alcohol or drug abuse patient.[facility] the event this information is protected by the Federal Confidentiality of Alcohol and Drug Abuse Patient Records regulations: The Federal rules restrict any use of the information to criminally investigate or prosecute any alcohol or drug abuse patient.[facility] the event this information is protected by the Federal Confidentiality of Alcohol and Drug Abuse Patient Records regulations: The Federal rules restrict any use of the information to criminally investigate or prosecute any alcohol or drug abuse patient.[facility] the event this information is protected by the Federal Confidentiality of Alcohol and Drug Abuse Patient Records regulations: The Federal rules restrict any use of the information to criminally investigate or prosecute any alcohol or drug abuse patient.[facility] the event this information is protected by the Federal Confidentiality of Alcohol and Drug Abuse Patient Records regulations: The Federal rules restrict any use of the information to criminally investigate or prosecute any alcohol or drug abuse patient.[facility] the event this information is protected by the Federal Confidentiality of Alcohol and Drug Abuse Patient Records regulations: The Federal rules restrict any use of the information to criminally investigate or prosecute any alcohol or drug abuse patient.[facility] the event this information is protected by the Federal Confidentiality of Alcohol and Drug Abuse Patient Records regulations: The Federal rules restrict any use of the information to criminally investigate or prosecute any alcohol or drug abuse patient.[facility] the event this information is protected by the Federal Confidentiality of Alcohol and Drug Abuse Patient Records regulations: The Federal rules restrict any use of the information to criminally investigate or prosecute any alcohol or drug abuse patient.[facility] the event this information is protected by the Federal Confidentiality of Alcohol and Drug Abuse Patient Records regulations: The Federal rules restrict any use of the information to criminally investigate or prosecute any alcohol or drug abuse patient.[facility] the event this information is protected by the Federal Confidentiality of Alcohol and Drug Abuse Patient Records regulations: The Federal rules restrict any use of the information to criminally investigate or prosecute any alcohol or drug abuse patient.[facility] the event this information is protected by the Federal Confidentiality of Alcohol and Drug Abuse Patient Records regulations: The Federal rules restrict any use of the information to criminally investigate or prosecute any alcohol or drug abuse patient.[facility] the event this information is protected by the Federal Confidentiality of Alcohol and Drug Abuse Patient Records regulations: The Federal rules restrict any use of the information to criminally investigate or prosecute any alcohol or drug abuse patient.[facility] the event this information is protected by the Federal Confidentiality of Alcohol and Drug Abuse Patient Records regulations: The Federal rules restrict any use of the information to criminally investigate or prosecute any alcohol or drug abuse patient.[facility] the event this information is protected by the Federal Confidentiality of Alcohol and Drug Abuse Patient Records regulations: The Federal rules restrict any use of the information to criminally investigate or prosecute any alcohol or drug abuse patient.[facility] the event this information is protected by the Federal Confidentiality of Alcohol and Drug Abuse Patient Records regulations: The Federal rules restrict any use of the information to criminally investigate or prosecute any alcohol or drug abuse patient.[facility] Campus[facility] the event this information is protected by the Federal Confidentiality of Alcohol and Drug Abuse Patient Records regulations: The Federal rules restrict any use of the information to criminally investigate or prosecute any alcohol or drug abuse patient.[facility] Campus[facility] the event this information is protected by the Federal Confidentiality of Alcohol and Drug Abuse Patient Records regulations: The Federal rules restrict any use of the information to criminally investigate or prosecute any alcohol or drug abuse patient.[facility] Campus[facility] the event this information is protected by the Federal Confidentiality of Alcohol and Drug Abuse Patient Records regulations: The Federal rules restrict any use of the information to criminally investigate or prosecute any alcohol or drug abuse patient.[facility] Campus[facility] the event this information is protected by the Federal Confidentiality of Alcohol and Drug Abuse Patient Records regulations: The Federal rules restrict any use of the information to criminally investigate or prosecute any alcohol or drug abuse patient.[facility] CampusIn the event this information is protected by the Federal Confidentiality of Alcohol and Drug Abuse Patient Records regulations: The Federal rules restrict any use of the information to criminally investigate or prosecute any alcohol or drug abuse patient.[facility] CampusIn the event this information is protected by the Federal Confidentiality of Alcohol and Drug Abuse Patient Records regulations: The Federal rules restrict any use of the information to criminally investigate or prosecute any alcohol or drug abuse patient.[facility] CampusIn the event this information is protected by the Federal Confidentiality of Alcohol and Drug Abuse Patient Records regulations: The Federal rules restrict any use of the information to criminally investigate or prosecute any alcohol or drug abuse patient.[facility] Care Teams (unrecognized sec tion and content) Photographer Portrait Relationship Specialty Start Date End Date Iglesia Polk [address] [place] [id number] PCP - General Family Practice 09/07/14 Photographer Portrait Relationship Specialty Start Date End Date Iglesia Polk [address] [place] [address] PCP - General Family Practice 09/07/14 Photographer Portrait Relationship Specialty Start Date End Date Iglesia Polk [address] [place] [address] PCP - General Family Practice 09/07/14 Photographer Portrait Relationship Specialty Start Date End Date Iglesia Polk [address] [place] [address] PCP - General Family Practice 09/07/14 Photographer Portrait Relationship Specialty Start Date End Date Iglesia Polk [address] [place] [address] PCP - General Family Medicine 09/07/14 Photographer Portrait Relationship Specialty Start Date End Date Iglesia Polk [address] [place] [address] PCP - General Family Medicine 09/07/14 Photographer Portrait Relationship Specialty Start Date End Date Iglesia Polk [address] [place] [address] PCP - General Family Medicine 09/07/14 Photographer Portrait Relationship Specialty Start Date End Date Iglesia Polk [address] [place] [address] PCP - General Family Medicine 09/07/14 Photographer Portrait Relationship Specialty Start Date End Date CallumIglesia templeton DO [address] [place] [address] PCP - General 09/16/18 Photographer Portrait Relationship Specialty Start Date End Date KyrieIglesia elaine [address] [place] [address] PCP - General Family Medicine 09/07/14 Photographer Portrait Relationship Specialty Start Date End Date Iglesia Polk, DO [address] [place] [address] PCP - General 09/16/18 Photographer Portrait Relationship Specialty Start Date End Date Iglesia Polk, DO [address] [place] [id number] PCP - General Family Medicine 09/07/14 Photographer Portrait Relationship Specialty Start Date End Date Iglesia Polk, DO [address] [place] [address] PCP - General 09/16/18 Photographer Portrait Relationship Specialty Start Date End Date Iglesia Polk, DO [address] [place] [address] PCP - General 09/16/18 Photographer Portrait Relationship Specialty Start Date End Date Iglesia Polk, DO [address] [place] [address] PCP - General 09/16/18 Photographer Portrait Relationship Specialty Start Date End Date Iglesia Polk, DO [address] [place] [address] PCP - General 09/16/18 Photographer Portrait Relationship Specialty Start Date End Date Iglesia Polk, DO [address] [place] [phone] PCP - General 09/16/18 Photographer Portrait Relationship Specialty Start Date End Date Iglesia Polk, DO [address] [place] [address] PCP - General 09/16/18 Bay Blanton MD [address] [place] [phone] Orthopedic Surgery 05/28/23 Photographer Portrait Relationship Specialty Start Date End Date Iglesia Polk DO [address] [place] [address] PCP - General 09/16/18 Bay Blanton MD [address] [place] [address] Orthopedic Surgery 05/28/23 Photographer Portrait Relationship Specialty Start Date End Date Iglesia Polk DO [address] [place] [address] PCP - General 09/16/18 Bay Blanton MD [address] [place] [address] Orthopedic Surgery 05/28/23 Photographer Portrait Relationship Specialty Start Date End Date Iglesia Polk DO [address] [place] [address] PCP - General 09/16/18 Bay Blanton MD [address] [place] [phone] Orthopedic Surgery 05/28/23 Photographer Portrait Relationship Specialty Start Date End Date Iglesia Polk DO [address] [place] [address] PCP - General 09/16/18 Bay Blanton MD [address] [address] Orthopedic Surgery 05/28/23 Photographer Portrait Relationship Specialty Start Date End Date Iglesia Polk DO [address] [place], [place] [id number] PCP - General Family Medicine 09/07/14 Photographer Portrait Relationship Specialty Start Date End Date Iglesia Polk DO [address] [place] [address] PCP - General 09/16/18 Bay Blanton MD [address] [place] [address] Orthopedic Surgery 05/28/23 Photographer Portrait Relationship Specialty Start Date End Date Iglesia Polk DO [address] [place], [place] [id number] PCP - General Family Medicine 09/07/14 Photographer Portrait Relationship Specialty Start Date End Date Iglesia Polk DO [address] [place], [place] [id number] PCP - General Family Medicine 09/07/14 Photographer Portrait Relationship Specialty Start Date End Date Iglesia Polk DO [address] [place] [address] PCP - General Family Medicine 09/07/14 Photographer Portrait Relationship Specialty Start Date End Date Iglseia Polk DO [address] [facility] [place] [address] PCP - General Family Medicine 09/07/14 Photographer Portrait Relationship Specialty Start Date End Date Iglesia Polk, DO [address] [facility] [place] [place] [address] PCP - General Family Medicine 09/07/14 Photographer Portrait Relationship Specialty Start Date End Date Iglesia Polk DO [address] [facility] [place] [address] PCP - General Family Medicine 09/07/14 Photographer Portrait Relationship Specialty Start Date End Date Iglesia Polk, DO [address] [facility] [id number] PCP - General Family Medicine 09/07/14 Photographer Portrait Relationship Specialty Start Date End Date Iglesia Polk, [address] [facility] [address] [place] [address] PCP - General 09/16/18 Bay Blanton MD [address] [facility] [place] [address] Orthopedic Surgery 05/28/23 FOR RECORDS PERTAINING TO PATIENTS WHO ARE OR HAVE BEEN ENROLLED IN A CHEMICAL DEPENDENCY/SUBSTANCEABUSE PROGRAM, SOME INFORMATION MAY BE OMITTED. This clinical summary was aggregated from multiple sources. Caution should be exercised in using it in the provision of clinical care. This summary normalizes information from multiple sources, and as a consequence, information in this document may materially change the coding, format and clinical context of patient data. In addition, data may be omitted in some cases. CLINICAL DECISIONS SHOULD BE BASED ON THE PRIMARY CLINICAL RECORDS. [facility] [employer] [facility]. provides no warranty or guarantee of the accuracy or completeness of information in this document.
[2024-02-24 07:41] LABS: Internal QC Validated? YES +Cl - CLEAR BKGD; Pregnancy, Urine Negative Negative
[2024-02-24] MEDS: Acetaminophen 500 MG Tablet 1000 MG PO (07:54)
--- NOTE | 2024-02-24 08:30 | EMB_PTH ---
PATHOLOGY RESULTS PATIENT: SATYA RUBIO LOC: [facility] [place] U#:[id number] AGE/SX: 23 ROOM: RE02/24/[address]: Dr. Josefa Marcial MD : 2000 BED: DIS: 02/24/2024 SPEC #: [id number] RECD: 02/24/24 10:42 STATUS: SINTIA GONZALEZ #: [id number] ANA: 02/24/24 08:[address]: Josefa Marcial DEPT: SURGICAL PATHOLOGY RECD BY: hCandan Hernandez ENTERED: 02/24/24 11:46 SP TYPE: ENDOM BX/C JANICEHR DR: Dr. Iglesia Polk DO Tissues: Endometrium, NOS Procedures: Surgery Specimen Level IV HEADER OPERATION: Hysteroscopy, D&C, polypectomy PRE-OP DIAGNOSIS: Abnormal uterine bleeding, endometrial polyp, iron deficiency anemia due to chronic blood loss TISSUE SUBMITTED: Endometrial curettings and polyp MICROSCOPIC DIAGNOSIS Endometrial curettings and polyp, polypectomy: Fragments of endometrial tissue and endometrial polyp with simple endometrial hyperplasia without atypia. Fragments of myometrium. 02/25/2024 COMMENT Case has been reviewed in consultation with Dr. De Leon who concurs with the above diagnosis. IDC:AM MICROSCOPIC DESCRIPTION Slides are reviewed. GROSS DESCRIPTION Received in fixative is one container labeled with the patient's name and designated Endometrial curettings and polyp. The specimen consists of multiple irregular fragments of gómez soft tissue that in aggregate measure 7.5 x 3.0 x 0.3 cm. The specimen is totally submitted in three cassettes. 02/24/2024 TC:5 CPT:75518
--- NOTE | 2024-02-24 08:45 | DCINST_ITS ---
Discharge Instructions Diet Discharge Diet: No restrictions Activity Discharge Activity: [address] (02/25/24) Return to work on:: 02/25/24 May resume sexual activity in: 1-2 weeks and 2 weeks Lifting Restrictions: none Dressing / Incision Call your doctor if your incision/area has: Sudden Increased Bleeding and Foul Smelling Discharge Call your doctor if you observe: Fever of 101 or Higher and Using more than 1 pad per hour (for 2 hrs in a row) Follow Up Care Please Follow Up With: Josefa Marcial MD When: Call [phone] or send a Talk Local message as needed for questions. We will contact you next week with your pathology. You do not need to schedule a postop visit. Test Results: Test results from this visit will be discussed in further detail at your follow- up appointment, if applicable. Discharge Plan Admission Attending Provider: Josefa Marcial Primary Care Provider: Iglesia Polk Instructions Print Language: Mosotho Discharge Orders/Prescriptions Prescriptions: No Action citalopram [Celexa] 10 mg tablet 10 mg PO DAILY lamotrigine 100 mg tablet 200 mg PO QHS esomeprazole magnesium [Nexium] 40 mg capsule,delayed release(DR/EC) 40 mg PO DAILY Referrals / Follow Up: Iglesia Polk DO [Primary Care Provider] - Disposition Disposition (needs filled in before D/C Order can be placed): Home, Self Care
[2024-02-24] MEDS: Lidocaine 1% /Epi 1:100 (20ml) 20 ML Vial (08:57)
--- NOTE | 2024-02-24 09:16 | OP.PCM_ITS ---
Problems Associated Problem List Diagnoses (1) Bicornate uterus: (2) Iron deficiency anemia due to chronic blood loss: (3) Endometrial polyp: (4) Abnormal uterine bleeding (AUB): Operative Report (Standard) Operative Information Surgery/Procedure Performed: Hysteroscopy D&C with polyp resection Surgeon: Josefa Marcial Date of Procedure: 02/24/24 Procedure Start Time: 08:50 Procedure Stop Time: 09:14 Pre-Operative Diagnosis: aub, endometrial polyp Post-Operative Diagnosis: same Select all DRAINS/GRAFTS/IMPLANTS that apply: None Type of Anesthesia: MAC/Supplemental/Local Special Medications: none Estimated Blood Loss: 10 Fluids Replaced: 0 Specimen collected: Yes Description of specimen(s) removed: endometrial curettings and polyp Description of surgery: The patient was taken to the OR where she was prepped and draped in dorsal lithotomy position. The weighted speculum was placed in the vagina and the anterior lip of the cervix was grasped with a single-tooth tenaculum. A paracervical block was administered with 1% lidocaine with 1-100,000 epinephrine solution. The cervix was dilated serially with Hegar dilators. The Symphion hysteroscope was placed into the uterine cavity and the above findings were noted. Bilateral tubal ostia were identified. The symphion device was placed through the scope and the 2 polyps were resected in their entirety and a visual curettage was done of the endometrial cavity.. The instruments were removed from the vagina. The specimen was handed off and sent to pathology. All sponge and needle counts were correct. Vaginal sweep was performed by me. The patient was awakened and taken to the recovery room in stable condition. Calculated hysteroscopic fluid deficit 350 cc of normal saline. Surgical Findings: lush endometrium, bicornuate uterus, endometrial polyp x 2. The bicornuate uterus is marked in an IUD would not be expected to fit in the uterus adequately Space Technologist swimming pool plasterer helper: Yes Cloth Washer Operator: Donald Zambrano MS3 Tasks completed by residential real estate assistant: Retracting Additional assistant women's tennis coach?: No Complications Complications: No Admit VTE Documentation VTE Present on Admission: No VTE Mechan Device Prophylaxis: SCD's VTE Pharm Prophylaxis ordered?: No
--- NOTE | 2024-02-24 09:31 | PCM.POST.ANE ---
Anesthesia: Postop Eval I Current Vital Signs Temperature: 97.2 F Pulse Rate: 99 Blood Pressure: 147/108 Respiratory Rate: 20 Pulse Ox: 94 Oxygen Delivery Method: Room Air Assessment Airway patent: Yes Spontaneous unlabored respirations: Yes Mental status: Awake and Calm nausea: No Vomiting: No Anesthesia Complication: No Fluid Hydration Crystalloid volume administer (ml): 10 Total IV fluid infused: 10 Progress Note Anesthesia document: Postop Eval 1 completed: Yes
--- NOTE | 2024-02-24 11:11 | POSTOPAN2_ITS ---
Anesthesia Postop Eval I Sum Postop Eval Completion status Anesthesia document: Postop Eval 1 completed: Yes Anesthesia Postop Eval I Summary Anesthesia Postop Eval I Summary: Anesthesia Postop Eval I: Assessment Summary Airway patent Yes 02/24/24 09:32 PHARMACEUTICAL [email or web address] Spontaneous unlabored Yes 02/24/24 09:32 PHARMACEUTICAL SALESPERSON.ALICIA respirations Mental status Awake,Calm 02/24/24 09:32 PHARMACEUTICAL SALESPERSON.ALICIA nausea No 02/24/24 09:32 PHARMACEUTICAL SALESPERSON.ALICIA Vomiting No 02/24/24 09:32 PHARMACEUTICAL SALESPERSONFARA Anesthesia Postop Eval I: Fluid Summary Crystalloid volume administer 10 02/24/24 09:32 PHARMACEUTICAL SALESPERSON.ALICIA (ml) Colloids volume administered ( ml) Blood Product volume administered (ml) Total IV fluid infused 10 02/24/24 09:32 PHARMACEUTICAL SALESPERSONFARA Anesthesia Postop Eval I: Summary Notes Anesthesia Complication No 02/24/24 09:32 OZ Anesthesia Complication Comment: Post-operative progress note Anesthesia: Postop Eval II Evaluation Mental status: Awake Pain Level: 0 nausea: No Vomiting: No
--- NOTE | 2024-02-24 11:11 | PCM.POSTANE2 ---
Anesthesia Postop Eval I Sum Postop Eval Completion status Anesthesia document: Postop Eval 1 completed: Yes Anesthesia Postop Eval I Summary Anesthesia Postop Eval I Summary: Anesthesia Postop Eval I: Assessment Summary Airway patent Yes 02/24/24 09:32 IN SCHOOL SUSPENSION COORDINATOR.[email or web address] Spontaneous unlabored Yes 02/24/24 09:32 IN SCHOOL SUSPENSION COORDINATOR.ALICIA respirations Mental status Awake,Calm 02/24/24 09:32 IN SCHOOL SUSPENSION COORDINATOR.ALICIA nausea No 02/24/24 09:32 IN SCHOOL SUSPENSION COORDINATOR.ALICIA Vomiting No 02/24/24 09:32 IN SCHOOL SUSPENSION COORDINATORFARA Anesthesia Postop Eval I: Fluid Summary Crystalloid volume administer 10 02/24/24 09:32 IN SCHOOL SUSPENSION COORDINATOR.ALICIA (ml) Colloids volume administered ( ml) Blood Product volume administered (ml) Total IV fluid infused 10 02/24/24 09:32 IN SCHOOL SUSPENSION COORDINATORFARA Anesthesia Postop Eval I: Summary Notes Anesthesia Complication No 02/24/24 09:32 OZ Anesthesia Complication Comment: Post-operative progress note Anesthesia: Postop Eval II Evaluation Mental status: Awake Pain Level: 0 nausea: No Vomiting: No
== END 2024-02-24 10:48 | disposition home or self-care (01) ==
LOC: SDC 07:16 → AC 07:18
PROVIDERS: PCP Family Medicine; Referring Provider Obstetrics & Gynecology; Visit Provider Obstetrics & Gynecology
PROC: 0UB98ZZ Excision of Uterus, Via Natural or Artificial Opening Endoscopic (ICD-10-PCS; CPT 58558; principal; 2024-02-24 08:15)
DX: N85.01 Benign endometrial hyperplasia (principal); D50.0 Iron deficiency anemia secondary to blood loss (chronic); Q51.3 Bicornate uterus; N93.9 Abnormal uterine and vaginal bleeding, unspecified; K21.9 Gastro-esophageal reflux disease without esophagitis; Z79.899 Other long term (current) drug therapy
CPT/HCPCS: 58558; 00952; 81025; 88305; A4216; J2405